=== PATIENT | male | born 1930 | race African-American/Black ===

== ENCOUNTER 2019-06-29 09:50 | Emergency (ER) | payer MEDICARE, OTHER ==
[2019-06-29] MEDS ORDERED: Sodium Chloride 0.9% 1,000 ML IV ONE (09:54)
[2019-06-29] MEDS ORDERED: Sodium Chloride 0.9% 2.5 ML Syringe FLUSH PRN (09:54)
[2019-06-29] MEDS ORDERED: Sodium Chloride 0.9% 10 ML Syringe FLUSH PRN (09:54)
--- NOTE | 2019-06-29 09:54 | EDM.PDOC ---
ED HPI GENERAL MEDICAL PROBLEM - General Chief Complaint: Neuro Symptoms/Deficits Stated Complaint: [facility] Time Seen by Provider: 06/29/19 09:50 Source of Information: Reports: Patient History Limitations: Reports: No Limitations - History of Present Illness INITIAL COMMENTS - FREE TEXT/NARRATIVE: History of present illness: []Patient awoke this morning with dizziness that is described as spinning. Review of systems: As per history of present illness and below otherwise all systems reviewed and negative. Past medical history: As per history of present illness and as reviewed below otherwise noncontributory. Surgical history: As per history of present illness and as reviewed below otherwise noncontributory. Social history: No reported history of drug or alcohol abuse. Family history: As per history of present illness and as reviewed below otherwise noncontributory. Physical exam: General: Well developed, well nourished in NAD HEENT: Atraumatic, normocephalic, pupils reactive, negative for conjunctival pallor or scleral icterus, mucous membranes moist, throat clear, neck supple, nontender, trachea midline. Lungs: Clear to auscultation, breath sounds equal bilaterally, chest nontender. Heart: S1S2, regular, negative for clicks, rubs, or JVD. Abdomen: NABS, Soft, nondistended, nontender. Negative for masses or hepatosplenomegaly. Negative for costovertebral tenderness. Pelvis: Stable nontender. Genitourinary: Deferred. Rectal: Deferred. Extremities: Atraumatic, negative for cords or calf pain. Neurovascular unremarkable. Neuro: Awake, alert, oriented. Cranial nerves II through XII unremarkable. Cerebellum unremarkable. Motor and sensory unremarkable throughout. Exam nonfocal. Skin:warm and dry Diagnostics: Bedside glucose EKG, CBC, chemistry, head CT Therapeutics: IV fluids ED Course: Stable Impression: dizziness-vertigo Prescriptions: meclizine Plan: go Home Definitive disposition and diagnosis as appropriate pending reevaluation and review of above. - Related Data Allergies Allergy/AdvReac Type Severity Reaction Status Date / Time No Known Allergies Allergy Verified 06/29/19 09:56 Home Meds: Home Meds Pantoprazole [ProTONIX] 40 mg PO DAILY 06/12/19 [History] Ramipril 10 mg PO DAILY 06/12/19 [History] amLODIPine [Norvasc] 10 mg PO DAILY 06/12/19 [History] glipiZIDE [Glucotrol XL] 5 mg PO DAILY 06/12/19 [History] Meclizine [Antivert] 25 mg PO TID #16 tab.chew 06/29/19 [Rx] Past Medical History HEENT History: Reports: None Cardiovascular History: Reports: Hypertension Endocrine/Metabolic History: Reports: Diabetes, Type II - Past Surgical History Cardiovascular Surgical History: Reports: None Social & Family History - Family History Family Medical History: Noncontributory - Caffeine Use Caffeine Use: Reports: None ED ROS GENERAL - Review of Systems Review Of Systems: See Below ED EXAM, DIZZINESS - Physical Exam Exam: See Below Course - Vital Signs Last Recorded V/S: Last Vital Signs Temp 97.1 F 06/29/19 09:54 Pulse 75 06/29/19 09:54 Resp 18 06/29/19 09:54 BP 182/83 H 06/29/19 09:54 Pulse Ox 97 06/29/19 09:54 - Orders/Labs/Meds Orders: Active Orders 24 hr Category Date Time Status Blood Glucose Check, Bedside [RC] ONETIME Care 06/29/19 10:11 Active EKG Documentation Completion [RC] STAT Care 06/29/19 10:10 Active Sodium Chloride 0.9% [Saline Flush] Med 06/29/19 09:54 Active 10 ml FLUSH ASDIRECTED PRN Sodium Chloride 0.9% [Saline Flush] Med 06/29/19 09:54 Active 2.5 ml FLUSH ASDIRECTED PRN Saline Lock Insert [OM.PC] Stat Oth 06/29/19 09:54 Ordered Medication Orders Sodium Chloride (Saline Flush) 10 ml FLUSH ASDIRECTED PRN PRN Reason: Keep Vein Open Sodium Chloride (Saline Flush) 2.5 ml FLUSH ASDIRECTED PRN PRN Reason: Keep Vein Open Labs: Laboratory Tests 06/29/19 06/29/19 06/29/19 Range/Units 10:05 10:05 10:13 WBC 6.79 (4.0-11.0) K/uL RBC 4.85 (4.50-5.90) M/uL Hgb 11.5 L (13.0-17.0) g/dL Hct 36.3 L (38.0-50.0) % MCV 74.8 L (80.0-98.0) fL MCH 23.7 L (27.0-32.0) pg MCHC 31.7 (31.0-37.0) g/dL RDW Std Deviation 36.7 (28.0-62.0) fl RDW Coeff of Nadia 14 (11.0-15.0) % Plt Count 297 (150-400) K/uL MPV 9.50 (7.40-12.00) fL Neut % (Auto) 69.7 (48.0-80.0) % Lymph % (Auto) 22.5 (16.0-40.0) % [place] % (Auto) 5.7 (0.0-15.0) % Eos % (Auto) 1.8 (0.0-7.0) % Baso % (Auto) 0.3 (0.0-1.5) % Neut # (Auto) 4.7 (1.4-5.7) K/uL Lymph # (Auto) 1.5 (0.6-2.4) K/uL [place] # (Auto) 0.4 (0.0-0.8) K/uL Eos # (Auto) 0.1 (0.0-0.7) K/uL Baso # (Auto) 0.0 (0.0-0.1) K/uL Nucleated RBC % 0.0 /100WBC Nucleated RBCs # 0 K/uL Sodium 138 (136-148) mmol/L Potassium 4.3 (3.5-5.1) mmol/L Chloride 101 (98-107) mmol/L Carbon Dioxide 25.7 (21.0-32.0) mmol/L BUN 18 (7.0-18.0) mg/dL Creatinine 1.7 H (0.8-1.3) mg/dL Est Cr Clr Drug Dosing 26.52 mL/min Estimated GFR (MDRD) 38.3 ml/min Glucose 209 H (74-106) mg/dL POC Glucose 225 H (60-110) mg/dL Calcium 9.3 (8.5-10.1) mg/dL Total Bilirubin 0.5 (0.2-1.0) mg/dL AST 11 L (15-37) IU/L ALT 17 (14-63) IU/L Alkaline Phosphatase 80 (46-116) U/L Total Protein 7.1 (6.4-8.2) g/dL Albumin 3.3 L (3.4-5.0) g/dL Globulin 3.8 (2.6-4.0) g/dL Albumin/Globulin Ratio 0.9 (0.9-1.6) Urine Color Urine Appearance Urine pH (5.0-8.0) Ur Specific [place]ansom (1.001-1.035) Urine Protein (NEGATIVE) mg/dL Urine Glucose (UA) (NEGATIVE) mg/dL Urine Ketones (NEGATIVE) mg/dL Urine Occult Blood (NEGATIVE) Urine Nitrite (NEGATIVE) Urine Bilirubin (NEGATIVE) Urine Urobilinogen (<2.0) EU/dL Ur Leukocyte Esterase (NEGATIVE) Urine RBC (0-2/HPF) Urine WBC (0-5/HPF) Ur Epithelial Cells (NONE-FEW) Urine Bacteria (NEGATIVE) 06/29/19 Range/Units 11:40 WBC (4.0-11.0) K/uL RBC (4.50-5.90) M/uL Hgb (13.0-17.0) g/dL Hct (38.0-50.0) % MCV (80.0-98.0) fL MCH (27.0-32.0) pg MCHC (31.0-37.0) g/dL RDW Std Deviation (28.0-62.0) fl RDW Coeff of Nadia (11.0-15.0) % Plt Count (150-400) K/uL MPV (7.40-12.00) fL Neut % (Auto) (48.0-80.0) % Lymph % (Auto) (16.0-40.0) % [place] % (Auto) (0.0-15.0) % Eos % (Auto) (0.0-7.0) % Baso % (Auto) (0.0-1.5) % Neut # (Auto) (1.4-5.7) K/uL Lymph # (Auto) (0.6-2.4) K/uL [place] # (Auto) (0.0-0.8) K/uL Eos # (Auto) (0.0-0.7) K/uL Baso # (Auto) (0.0-0.1) K/uL Nucleated RBC % /100WBC Nucleated RBCs # K/uL Sodium (136-148) mmol/L Potassium (3.5-5.1) mmol/L Chloride (98-107) mmol/L Carbon Dioxide (21.0-32.0) mmol/L BUN (7.0-18.0) mg/dL Creatinine (0.8-1.3) mg/dL Est Cr Clr Drug Dosing mL/min Estimated GFR (MDRD) ml/min Glucose (74-106) mg/dL POC Glucose (60-110) mg/dL Calcium (8.5-10.1) mg/dL Total Bilirubin (0.2-1.0) mg/dL AST (15-37) IU/L ALT (14-63) IU/L Alkaline Phosphatase (46-116) U/L Total Protein (6.4-8.2) g/dL Albumin (3.4-5.0) g/dL Globulin (2.6-4.0) g/dL Albumin/Globulin Ratio (0.9-1.6) Urine Color YELLOW Urine Appearance CLEAR Urine pH 6.0 (5.0-8.0) Ur Specific Ransom 1.015 (1.001-1.035) Urine Protein 100 H (NEGATIVE) mg/dL Urine Glucose (UA) 100 H (NEGATIVE) mg/dL Urine Ketones NEGATIVE (NEGATIVE) mg/dL Urine Occult Blood TRACE-INTACT H (NEGATIVE) Urine Nitrite NEGATIVE (NEGATIVE) Urine Bilirubin NEGATIVE (NEGATIVE) Urine Urobilinogen 0.2 (<2.0) EU/dL Ur Leukocyte Esterase NEGATIVE (NEGATIVE) Urine RBC 0-2 (0-2/HPF) Urine WBC 0-3 (0-5/HPF) Ur Epithelial Cells OCCASIONAL (NONE-FEW) Urine Bacteria RARE (NEGATIVE) Meds: Medications Generic Name Dose Route Start Last Admin Trade Name Freq PRN Reason Stop Dose Admin Sodium Chloride 10 ml 06/29/19 09:54 Saline Flush FLUSH ASDIRECTED PRN Keep Vein Open Sodium Chloride 2.5 ml 06/29/19 09:54 Saline Flush FLUSH ASDIRECTED PRN Keep Vein Open Discontinued Medications Generic Name Dose Route Start Last Admin Trade Name Freq PRN Reason Stop Dose Admin Sodium Chloride 1,000 mls @ 999 mls/hr 06/29/19 09:54 06/29/19 10:12 Normal Saline IV 06/29/19 10:54 999 mls/hr .Bolus ONE Administration Sodium Chloride 500 mls @ 999 mls/hr 06/29/19 10:08 06/29/19 10:17 Normal Saline IV 06/29/19 10:24 Not Given .Bolus ONE Departure - Departure Time of Disposition: 12:10 Disposition: Home, Self-Care 01 Condition: Good Clinical Impression: Vertigo - Discharge Information *PRESCRIPTION DRUG MONITORING PROGRAM REVIEWED*: No *COPY OF PRESCRIPTION DRUG MONITORING REPORT IN PATIENT [place]: No Referrals: PCP,Unobtain [Primary Care Provider] - Forms: ED Department Discharge Additional Instructions: The following information is given to patients seen in the emergency department who are being discharged to home. This information is to outline your options for follow-up care. We provide all patients seen in our emergency department with a follow-up referral. The need for follow-up, as well as the timing and circumstances, are variable depending upon the specifics of your emergency department visit. If you don't have a primary care physician on staff, we will provide you with a referral. We always advise you to contact your personal physician following an emergency department visit to inform them of the circumstance of the visit and for follow-up with them and/or the need for any referrals to a consulting specialist. The emergency department will also refer you to a specialist when appropriate. This referral assures that you have the opportunity for follow-up care with a specialist. All of these measure are taken in an effort to provide you with optimal care, which includes your follow-up. Under all circumstances we always encourage you to contact your private physician who remains a resource for coordinating your care. When calling for follow-up care, please make the office aware that this follow-up is from your recent emergency room visit. If for any reason you are refused follow-up, please contact the [facility] at and asked to speak to the emergency department charge nurse. Take meds as directed, follow up with your primary care physician, return to ER if symptoms worsen or change. [facility] [address] [place] [id number] - My Orders Last 24 Hours: My Active Orders 06/29/19 09:54 Sodium Chloride 0.9% [Saline Flush] 10 ml FLUSH ASDIRECTED PRN Sodium Chloride 0.9% [Saline Flush] 2.5 ml FLUSH ASDIRECTED PRN Saline Lock Insert [OM.PC] Stat 06/29/19 10:10 EKG Documentation Completion [RC] STAT 06/29/19 10:11 Blood Glucose Check, Bedside [] ONETIME - Assessment/Plan Last 24 Hours: My Active Orders 06/29/19 09:54 Sodium Chloride 0.9% [Saline Flush] 10 ml FLUSH ASDIRECTED PRN Sodium Chloride 0.9% [Saline Flush] 2.5 ml FLUSH ASDIRECTED PRN Saline Lock Insert [OM.PC] Stat 06/29/19 10:10 EKG Documentation Completion [RC] STAT 06/29/19 10:11 Blood Glucose Check, Bedside [RC] ONETIME
[2019-06-29] MEDS ORDERED: Sodium Chloride 0.9% 500 ML IV ONE (10:08)
[2019-06-29 10:43] LABS: CARBON DIOXIDE,CO2 25.7 mmol/L (21.0-32.0); POTASSIUM,K 4.3 mmol/L (3.5-5.1)
--- NOTE | 2019-06-29 10:48 | CT ---
INDICATION: Dizziness. COMPARISON: None. TECHNIQUE: Axial CT of the head without contrast. FINDINGS: [id number] generalized volume loss. Patchy low-attenuation change within the white matter consistent with chronic small vessel ischemic changes. 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 Compensatory mild dilatation of ventricular system. No midline shift. Normal calvarium and skull base. Visualized paranasal sinuses are unremarkable. Small left mastoid effusion. IMPRESSION: 1. No acute intracranial abnormality. 2. Mild to moderate generalized volume loss. 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 3. 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 Dictated by Kaushal Spicer MD @ Jun 29 2019 10:44AM Signed by Dr. Kaushal Spicer @ Jun 29 2019 10:46AM
== END 2019-06-29 12:30 | disposition home or self-care (01) ==
LOC: MW.ED 09:50
DX: R42 Dizziness and giddiness (principal); E11.9 Type 2 diabetes mellitus without complications; I10 Essential (primary) hypertension; Z79.899 Other long term (current) drug therapy
CPT/HCPCS: 36415; 70450; 80053; 81001; 82962; 85025; 93005; 99284; J7040

== ENCOUNTER 2020-08-03 15:37 | Emergency (ER) | payer MEDICARE, OTHER ==
--- NOTE | 2020-08-03 16:04 | EDM.PDOC ---
ED HPI GENERAL MEDICAL PROBLEM - General Chief Complaint: General Stated Complaint: WEAK NO APPETITE Time Seen by Provider: 08/03/20 15:38 - History of Present Illness INITIAL COMMENTS - FREE TEXT/NARRATIVE: This is a very nice 89-year-old male with a past medical history of diabetes mellitus, hypertension, and GERD presenting with generalized weakness. He apparently was brought to the respiratory clinic by his family to have COVID testing, which he refused. There, he told staff that he had been feeling weak and rundown for a while and clinic staff directed him to the emergency department for further evaluation. Here in the ED, the patient states that he has been feeling generally weak for about a week. He states that he recently traveled up here from [place] to stay with family members. His luggage was lost during the journey and all of his medications were lost including insulin and antihypertensive medications. He knows that he takes insulin but does not remember what his other medications are. Old pharmacy record shows that he was on oral medications for hypertension, diabetes mellitus, and GERD. His only complaint is feeling generally weak. He denies any recent illness, fever, chest discomfort, vom iting, diarrhea, or any pain. He denies any known sick contacts. He denies any other complaints besides feeling weak. ROS: A 10-point review of systems was negative, except as noted in the HPI (or in the ROS section of this note). Past medical history: Reviewed, no additional pertinent history. Surgical history: Reviewed in system, no additional pertinent history. Social history: Reviewed in system, no additional pertinent history. Family history: Reviewed in system, no additional pertinent history. PHYSICAL EXAM Vital signs reviewed. Nursing notes reviewed. Constitutional: Awake, alert, non-distressed. Head: Normocephalic, atraumatic. Eyes: EOMI, conjunctiva normal, no discharge, no scleral icterus. Ears, Nose, Throat: External ears and nose normal, moist oral mucosa. Cardiovascular: 2+ radial pulse, capillary refill less than 2 seconds. Pulmonary: normal work of breathing, no accessory muscle use. Abdomen/GI: Soft, nontender, nondistended, no guarding or rigidity, no masses. Musculoskeletal: No deformities. Integumentary: Appropriate color for ethnicity, warm, dry, no pallor or jaundice, no rash. Neurologic: Alert, answering questions appropriately, normal speech, no facial droop, moving all extremities well. Hard of hearing. Psychiatric: Appropriate mood and affect, normal thought process. - Related Data Allergies Allergy/AdvReac Type Severity Reaction Status Date / Time No Known Allergies Allergy Verified 08/03/20 15:50 Home Meds: Home Meds Pantoprazole [ProTONIX] 40 mg PO DAILY 06/12/19 [History] Ramipril 10 mg PO DAILY 06/12/19 [History] amLODIPine [Norvasc] 10 mg PO DAILY 06/12/19 [History] glipiZIDE [Glucotrol XL] 5 mg PO DAILY 06/12/19 [History] Meclizine [Antivert] 25 mg PO TID #16 tab.chew 06/29/19 [Rx] Past Medical History HEENT History: Reports: None Cardiovascular History: Reports: Hypertension Endocrine/Metabolic History: Reports: Diabetes, Type II - Past Surgical History Cardiovascular Surgical History: Reports: None Social & Family History - Family History Family Medical History: Noncontributory - Tobacco Use Tobacco Use Status *Q: Never Tobacco User - Caffeine Use Caffeine Use: Reports: None - Recreational Drug Use Recreational Drug Use: No ED ROS GENERAL - Review of Systems Review Of Systems: See Below ED EXAM, GENERAL - Physical Exam Exam: See Below #1 Interpretation EKG Interpretation Comments: 12-Lead ECG Interpretation Acquired: 3:55 PM Rhythm: Sinus rhythm Rate: 82 bpm [place]: Left axis deviation Intervals: Normal Ectopy: Lone PAC RV Strain: No obvious RV strain pattern. ST Segments/T-Waves: No notable changes Acute Ischemic Changes: Mild nondiagnostic ST segment depression in lead V6, less than 1 mm Interpretation: No STEMI Course - Vital Signs Text/Narrative:: Patient hemodynamically stable, afebrile, well-appearing, looks nontoxic. Differential diagnosis includes but is not limited to: Anemia, electrolyte dis turbance, volume depletion, UTI, pyelonephritis, bacteremia, sepsis, pneumonia, COVID-19, thyroid disease, medication side effect, and many others. Twelve-lead EKG shows no obvious ischemia. IV access established and labs sent. Noted be markedly hypertensive with Blood pressures as high as 260 systolic. Labs returned showing mild microcytic anemia. Normal coagulation markers. Creatinine elevated at 2.4, no prior available for comparison so I am not sure if this is acute or chronic. Glucose 449 with normal bicarbonate, so he is not in DKA. Troponin elevated at 0.096. LFTs are within normal limits. TSH is normal. Urinalysis shows small occult blood, greater than 1000 glucose. Negative serum ketones. Negative COVID swab. Chest x-rays are clear. Patient has hypertensive emergency, NSTEMI, and renal failure of uncertain chronicity. He was started on IV nitroglycerin infusion to lower his MAP by 20% and was also given a heparin bolus and infusion, full dose aspirin, and p.o. amlodipine. He will need to be admitted to an intensive care unit. We do not have interventional cardiology here for the troponin elevation. I attempted to secure an ICU bed in [place] or [place], but there are not available. We were able to get acceptance at [facility] in [place], [place]. He will be transferred there by fixed wing flight crew. Transferred to the flight crew in good condition. Last Recorded V/S: Last Vital Signs Temp 35.4 C L 08/03/20 15:47 Pulse 90 08/03/20 18:22 Resp 18 08/03/20 15:47 BP 148/88 H 08/03/20 18:22 Pulse Ox 97 08/03/20 18:22 - Orders/Labs/Meds Orders: Active Orders 24 hr Category Date Time Status CORONAVIRUS COVID-19 PCR PHL Stat Lab 08/03/20 16:35 Received Labs: Laboratory Tests 08/03/20 08/03/20 08/03/20 Range/Units 16:11 16:11 16:11 WBC 6.79 (4.0-11.0) K/uL RBC 5.08 (4.50-5.90) M/uL Hgb 12.2 L (13.0-17.0) g/dL Hct 38.0 (38.0-50.0) % MCV 74.8 L (80.0-98.0) fL MCH 24.0 L (27.0-32.0) pg MCHC 32.1 (31.0-37.0) g/dL RDW Std Deviation 36.1 (28.0-62.0) fl RDW Coeff of Nadia 13 (11.0-15.0) % Plt Count 297 (150-400) K/uL MPV 10.00 (7.40-12.00) fL Neut % (Auto) 60.9 (48.0-80.0) % Lymph % (Auto) 29.2 (16.0-40.0) % [place] % (Auto) 8.0 (0.0-15.0) % Eos % (Auto) 1.8 (0.0-7.0) % Baso % (Auto) 0.1 (0.0-1.5) % Neut # (Auto) 4.1 (1.4-5.7) K/uL Lymph # (Auto) 2.0 (0.6-2.4) K/uL [place] # (Auto) 0.5 (0.0-0.8) K/uL Eos # (Auto) 0.1 (0.0-0.7) K/uL Baso # (Auto) 0.0 (0.0-0.1) K/uL Nucleated RBC % 0.0 /100WBC Nucleated RBCs # 0 K/uL INR APTT (18.6-31.3) SEC VBG pH (7.31-7.41) VBG pCO2 (35-45) mmHG VBG pO2 (30-40) mmHG VBG HCO3 (22-30) mEq/L VBG Total CO2 (41-51) mmol/L VBG Base Excess (-3.0-3.0) Sodium 134 L (136-148) mmol/L Potassium 4.3 (3.5-5.1) mmol/L Chloride 98 (98-107) mmol/L Carbon Dioxide 28.8 (21.0-32.0) mmol/L BUN 31 H (7.0-18.0) mg/dL Creatinine 2.4 H (0.8-1.3) mg/dL Est Cr Clr Drug Dosing TNP Estimated GFR (MDRD) 31.0 ml/min Glucose 449 H (74-106) mg/dL Hemoglobin A1c 11.1 H (4.5-6.2) % Calcium 9.5 (8.5-10.1) mg/dL Total Bilirubin 0.8 (0.2-1.0) mg/dL AST 14 L (15-37) IU/L ALT 27 (14-63) IU/L Alkaline Phosphatase 89 (46-116) U/L Troponin I 0.096 H* (0.000-0.056) ng/mL Total Protein 7.4 (6.4-8.2) g/dL Albumin 3.8 (3.4-5.0) g/dL Globulin 3.6 (2.6-4.0) g/dL Albumin/Globulin Ratio 1.1 (0.9-1.6) TSH 3rd Generation 1.65 (0.36-3.74) uIU/mL Urine Color Urine Appearance Urine pH (5.0-8.0) Ur Specific [place] (1.001-1.035) Urine Protein (NEGATIVE) mg/dL Urine Glucose (UA) (NEGATIVE) mg/dL Urine Ketones (NEGATIVE) mg/dL Urine Occult Blood (NEGATIVE) Urine Nitrite (NEGATIVE) Urine Bilirubin (NEGATIVE) Urine Urobilinogen (<2.0) EU/dL Ur Leukocyte Esterase (NEGATIVE) Urine RBC (0-2/HPF) Urine WBC (0-5/HPF) Ur Epithelial Cells (NONE-FEW) Urine Bacteria (NEGATIVE) Ketones (NEG) SARS CoV-2 RNA Rapid TEA (NEGATIVE) 08/03/20 08/03/20 08/03/20 Range/Units 16:11 16:35 17:21 WBC (4.0-11.0) K/uL RBC (4.50-5.90) M/uL Hgb (13.0-17.0) g/dL Hct (38.0-50.0) % MCV (80.0-98.0) fL MCH (27.0-32.0) pg MCHC (31.0-37.0) g/dL RDW Std Deviation (28.0-62.0) fl RDW Coeff of Nadia (11.0-15.0) % Plt Count (150-400) K/uL MPV (7.40-12.00) fL Neut % (Auto) (48.0-80.0) % Lymph % (Auto) (16.0-40.0) % [place] % (Auto) (0.0-15.0) % Eos % (Auto) (0.0-7.0) % Baso % (Auto) (0.0-1.5) % Neut # (Auto) (1.4-5.7) K/uL Lymph # (Auto) (0.6-2.4) K/uL [place] # (Auto) (0.0-0.8) K/uL Eos # (Auto) (0.0-0.7) K/uL Baso # (Auto) (0.0-0.1) K/uL Nucleated RBC % /100WBC Nucleated RBCs # K/uL INR 0.99 APTT 23.6 (18.6-31.3) SEC VBG pH 7.32 (7.31-7.41) VBG pCO2 56 H (35-45) mmHG VBG pO2 23 L (30-40) mmHG VBG HCO3 29 (22-30) mEq/L VBG Total CO2 27 L (41-51) mmol/L VBG Base Excess 1.4 (-3.0-3.0) Sodium (136-148) mmol/L Potassium (3.5-5.1) mmol/L Chloride (98-107) mmol/L Carbon Dioxide (21.0-32.0) mmol/L BUN (7.0-18.0) mg/dL Creatinine (0.8-1.3) mg/dL Est Cr Clr Drug Dosing Estimated GFR (MDRD) ml/min Glucose (74-106) mg/dL Hemoglobin A1c (4.5-6.2) % Calcium (8.5-10.1) mg/dL Total Bilirubin (0.2-1.0) mg/dL AST (15-37) IU/L ALT (14-63) IU/L Alkaline Phosphatase (46-116) U/L Troponin I (0.000-0.056) ng/mL Total Protein (6.4-8.2) g/dL Albumin (3.4-5.0) g/dL Globulin (2.6-4.0) g/dL Albumin/Globulin Ratio (0.9-1.6) TSH 3rd Generation (0.36-3.74) uIU/mL Urine Color Urine Appearance Urine pH (5.0-8.0) Ur Specific [place] (1.001-1.035) Urine Protein (NEGATIVE) mg/dL Urine Glucose (UA) (NEGATIVE) mg/dL Urine Ketones (NEGATIVE) mg/dL Urine Occult Blood (NEGATIVE) Urine Nitrite (NEGATIVE) Urine Bilirubin (NEGATIVE) Urine Urobilinogen (<2.0) EU/dL Ur Leukocyte Esterase (NEGATIVE) Urine RBC (0-2/HPF) Urine WBC (0-5/HPF) Ur Epithelial Cells (NONE-FEW) Urine Bacteria (NEGATIVE) Ketones (NEG) SARS CoV-2 RNA Rapid TEA NEGATIVE (NEGATIVE) 08/03/20 08/03/20 Range/Units 17:21 17:36 WBC (4.0-11.0) K/uL RBC (4.50-5.90) M/uL Hgb (13.0-17.0) g/dL Hct (38.0-50.0) % MCV (80.0-98.0) fL MCH (27.0-32.0) pg MCHC (31.0-37.0) g/dL RDW Std Deviation (28.0-62.0) fl RDW Coeff of Nadia (11.0-15.0) % Plt Count (150-400) K/uL MPV (7.40-12.00) fL Neut % (Auto) (48.0-80.0) % Lymph % (Auto) (16.0-40.0) % [place] % (Auto) (0.0-15.0) % Eos % (Auto) (0.0-7.0) % Baso % (Auto) (0.0-1.5) % Neut # (Auto) (1.4-5.7) K/uL Lymph # (Auto) (0.6-2.4) K/uL [place] # (Auto) (0.0-0.8) K/uL Eos # (Auto) (0.0-0.7) K/uL Baso # (Auto) (0.0-0.1) K/uL Nucleated RBC % /100WBC Nucleated RBCs # K/uL INR APTT (18.6-31.3) SEC VBG pH (7.31-7.41) VBG pCO2 (35-45) mmHG VBG pO2 (30-40) mmHG VBG HCO3 (22-30) mEq/L VBG Total CO2 (41-51) mmol/L VBG Base Excess (-3.0-3.0) Sodium (136-148) mmol/L Potassium (3.5-5.1) mmol/L Chloride (98-107) mmol/L Carbon Dioxide (21.0-32.0) mmol/L BUN (7.0-18.0) mg/dL Creatinine (0.8-1.3) mg/dL Est Cr Clr Drug Dosing Estimated GFR (MDRD) ml/min Glucose (74-106) mg/dL Hemoglobin A1c (4.5-6.2) % Calcium (8.5-10.1) mg/dL Total Bilirubin (0.2-1.0) mg/dL AST (15-37) IU/L ALT (14-63) IU/L Alkaline Phosphatase (46-116) U/L Troponin I (0.000-0.056) ng/mL Total Protein (6.4-8.2) g/dL Albumin (3.4-5.0) g/dL Globulin (2.6-4.0) g/dL Albumin/Globulin Ratio (0.9-1.6) TSH 3rd Generation (0.36-3.74) uIU/mL Urine Color YELLOW Urine Appearance HAZY Urine pH 6.0 (5.0-8.0) Ur Specific [place] 1.020 (1.001-1.035) Urine Protein 100 H (NEGATIVE) mg/dL Urine Glucose (UA) >=1000 (NEGATIVE) mg/dL Urine Ketones NEGATIVE (NEGATIVE) mg/dL Urine Occult Blood SMALL H (NEGATIVE) Urine Nitrite NEGATIVE (NEGATIVE) Urine Bilirubin NEGATIVE (NEGATIVE) Urine Urobilinogen 0.2 (<2.0) EU/dL Ur Leukocyte Esterase NEGATIVE (NEGATIVE) Urine RBC 0-2 (0-2/HPF) Urine WBC 0-2 (0-5/HPF) Ur Epithelial Cells RARE (NONE-FEW) Urine Bacteria RARE (NEGATIVE) Ketones NEGATIVE (NEG) SARS CoV-2 RNA Rapid TEA (NEGATIVE) Meds: Medications Discontinued Medications Generic Name Dose Route Start Last Admin Trade Name Freq PRN Reason Stop Dose Admin Amlodipine Besylate 10 mg 08/03/20 16:17 08/03/20 16:39 Norvasc PO 08/03/20 16:18 10 mg ONETIME ONE Administration Aspirin 324 mg 08/03/20 16:51 08/03/20 17:30 Aspirin PO 08/03/20 16:52 324 mg ONETIME ONE Administration Heparin Sodium (Porcine) 3,540 units 08/03/20 17:30 08/03/20 17:51 Heparin Sodium IVPUSH 08/03/20 17:31 3,540 units .BOLUS ONE Administration Nitroglycerin/Dextrose 25 mg in 250 mls @ 45 mls/hr 08/03/20 17:15 08/03/20 18:15 Nitroglycerin 25 Mg/D5w 250 Ml IV 0 mcg/min TITRATE CL[place] 0 mls/hr Titration Protocol 75 MCG/MIN Heparin Sodium/Sodium Chloride 25,000 unit in 500 mls @ 14.16 mls/hr 08/03/20 17:30 08/03/20 17:49 Heparin-1/2ns 25,000 Units/500 IV 12 units/kg/hr TITRATE CL[place] 14.16 mls/hr Administration Protocol 12 UNITS/KG/HR Departure - Departure Time of Disposition: 18:04 Disposition: DC/Tfer to Acute Hospital 02 Condition: Good Clinical Impression: NSTEMI (non-ST elevated myocardial infarction), Hypertensive emergency, Renal insufficiency - Discharge Information Referrals: Sharri Eagle NP [Primary Care Provider] - Forms: ED Department Discharge Critical Care Note - Critical Care Note Total Time (mins): 30 Comments: Critical care time is exclusive of billable procedures and the time to perform these procedures. Critical care time was used to prevent vital system organ failure and deterioration. Critical care time includes bedside management and high-complexity decision making requiring my highest level of mental preparedness and attention. This includes reviewing the patient's chart and prior medical records, ordering and reviewing interpreting laboratory studies and imaging results, interpretation of vital signs and EKG, pulse oximetry, and discussion with the admitting team along with EMS and nursing staff. Hypertensive emergency, NSTEMI, renal insufficiency requiring nitroglycerin and heparin infusions, aspirin, close blood pressure control and haemodynamic monitoring, aeromedical transport to tertiary hospital for further intensive care. Sepsis Event Note (ED) - Evaluation Sepsis Screening Result: No Definite Risk - Focused Exam Vital Signs: Vital Signs Temp Pulse Resp BP BP Pulse Ox 08/03/20 18:22 90 148/88 H 97 08/03/20 18:16 105 H 133/75 97 08/03/20 18:12 100/52 L 08/03/20 17:56 87 183/92 H 96 08/03/20 17:41 89 240/112 H 95 08/03/20 17:35 80 257/112 H 95 08/03/20 16:39 203/111 H 08/03/20 15:47 35.4 C L 76 18 217/108 H 97 - My Orders Last 24 Hours: My Active Orders 08/03/20 16:35 CORONAVIRUS COVID-19 PCR PHL Stat - Assessment/Plan Last 24 Hours: My Active Orders 08/03/20 16:35 CORONAVIRUS COVID-19 PCR PHL Stat
[2020-08-03] MEDS ORDERED: amLODIPine 5 MG Tab PO ONE (16:17)
[2020-08-03 16:43] LABS: BLOOD UREA NITROGEN,BUN 31 mg/dL (7.0-18.0); CARBON DIOXIDE,CO2 28.8 mmol/L (21.0-32.0); CHLORIDE,CL 98 mmol/L (98-107); GLUCOSE RANDOM 449 mg/dL (74-106); POTASSIUM,K 4.3 mmol/L (3.5-5.1); SODIUM,NA 134 mmol/L (136-148)
[2020-08-03] MEDS ORDERED: Aspirin 81 MG Tab.Chew PO ONE (16:51)
[2020-08-03 17:10] LABS: HEMOGLOBIN A1C 11.1 % (4.5-6.2)
[2020-08-03] MEDS ORDERED: Nitroglycerin/D5W 25 MG/250 ML BOTTLE IV SCH (17:15)
[2020-08-03] MEDS ORDERED: Heparin Sod,Pork In 0.45% Nacl 25,000 UNIT/500 ML IV.SOLN IV SCH (17:30)
[2020-08-03] MEDS ORDERED: Heparin Sodium 5,000 Units/ML Vial IVPUSH ONE (17:30)
--- NOTE | 2020-08-03 17:50 | CR ---
INDICATION: Generalized weakness. TECHNIQUE: PA and lateral. COMPARISON: 06/12/2019. FINDINGS: No infiltrate or pleural effusion. Small nodular density projected over the medial left base, presumably unchanged. Heart size and pulmonary vasculature within normal limits. No significant bony abnormality. IMPRESSION: No active disease. Dictated by Justin Alvarez MD @ Aug 03 2020 5:44PM Signed by Dr. Justin Alvarez @ Aug 03 2020 5:48PM
== END 2020-08-03 18:30 ==
LOC: MW.ED 15:37
DX: I21.4 Non-ST elevation (NSTEMI) myocardial infarction (principal); I16.1 Hypertensive emergency; N28.9 Disorder of kidney and ureter, unspecified; I10 Essential (primary) hypertension; E11.9 Type 2 diabetes mellitus without complications; Z20.828 Contact with and (suspected) exposure to other viral communicable diseases; Z79.899 Other long term (current) drug therapy
CPT/HCPCS: 36415; 71046; 80053; 81001; 82009; 82803; 83036; 84443; 84484; 85025; 85610; 85730; 93005; 96365; 96368; 99285; A9270; J1644; J3490; U0002; 99291

== ENCOUNTER 2020-09-27 14:13 | Emergency (ER) | payer MEDICARE ==
[2020-09-27] MEDS ORDERED: Sodium Chloride 0.9% 10 ML Syringe FLUSH PRN (14:15)
[2020-09-27] MEDS ORDERED: Sodium Chloride 0.9% 2.5 ML Syringe FLUSH PRN (14:15)
[2020-09-27] MEDS ORDERED: Ondansetron 4 MG/2 ML SDV ONE ×2 (14:40→17:40)
--- NOTE | 2020-09-27 14:41 | EDM.PDOC ---
<Junito Thomas - Last Filed: 09/27/20 17:15> ED HPI GENERAL MEDICAL PROBLEM - General Chief Complaint: Neuro Symptoms/Deficits Stated Complaint: EMS ARRIVAL Time Seen by Provider: 09/27/20 14:14 Source of Information: Reports: Patient History Limitations: Reports: No Limitations - History of Present Illness INITIAL COMMENTS - FREE TEXT/NARRATIVE: 89-year-old male with history of vertigo, hypertensive emergency, HTN, DM, NSTEMI was brought in by ambulance after the patient's called for him vomiting today. When EMS arrived he was diaphoretic and altered. Blood glucose = 79. Systolic blood pressure = 208. Patient was given 4 mg IM Zofran. He denies headache, chest pain, abdominal pain, shortness of breath, diarrhea. He currently admits to feeling dizzy, like the room is spinning. ROS: A 10-point review of systems, other than pertinent positives and negatives as stated per HPI, is otherwise negative Past medical history: No additional pertinent history Past Surgical history: No additional pertinent history Social history: No additional pertinent history Family history: No additional pertinent history PHYSICAL EXAM General: AOx3, GCS = 14, ill appearing, moderate distress, somnulent, drooling into his vomit bag HEENT: dry mucous membrane, drooling from the mouth Neck: supple, no meningismus, no Kernig or Brudzinski Cardiac: S1S2 RRR Respiratory: CTAB, no crackles or rales, no wheezing Abdomen: Soft, nontender, no rebound or guarding, nondistended, no pulsatile mass. Back: nontender Musculoskeletal: NVI distally, no deformity Neuro: No focal deficits - Related Data Allergies Allergy/AdvReac Type Severity Reaction Status Date / Time No Known Allergies Allergy Verified 09/27/20 14:24 Home Meds: Home Meds Pantoprazole [ProTONIX] 40 mg PO DAILY 06/12/19 [History] Ramipril 10 mg PO DAILY 06/12/19 [History] amLODIPine [Norvasc] 10 mg PO DAILY 06/12/19 [History] glipiZIDE [Glucotrol XL] 5 mg PO DAILY 06/12/19 [History] Meclizine [Antivert] 25 mg PO TID #16 tab.chew 06/29/19 [Rx] Past Medical History HEENT History: Reports: None Cardiovascular History: Reports: Hypertension Endocrine/Metabolic History: Reports: Diabetes, Type II Hematologic History: Reports: Anemia - Past Surgical History Cardiovascular Surgical History: Reports: None Social & Family History - Family History Family Medical History: No Pertinent Family History - Caffeine Use Caffeine Use: Reports: None ED ROS GENERAL - Review of Systems Review Of Systems: See Below (see dictation) ED EXAM, GENERAL - Physical Exam Exam: See Below (see dictation) #1 Interpretation EKG Interpretation Comments: Heart rate = 71 bpm, normal sinus rhythm, normal QRS interval, no STEMI. EKG and rhythm strip interpreted by me at 1410 Course - Re-Assessments/Exams Free Text/Narrative Re-Assessment/Exam: 09/27/20 15:48 Patient still feels dizzy as if the room is spinning, will give 2 mg IV Valium. 09/27/20 15:57 Patient is resting calmly, his blood pressure = 182/100, HR = 62, will give 10 mg IV hydralazine. 09/27/20 17:32 Patient will require transfer to outside facility for the need of higher level of care not available at this facility, and the need for hadoop consultant services unavailable at this facility. Any emergency conditions have been stabilized to the ability of the ED prior to the transfer. J[facility] Bour[facility]. Case was discussed and accepted by Deshaun Young at [place], will accept transfer to [facility]. MEDICAL DECISION MAKING: I reviewed the patients past medical records, lab and radiographic findings. I discussed the case with the patient. My differential diagnosis included: Peripheral vertigo, central vertigo, vertebrobasilar insufficiency, posterior stroke. Patient presented hypertensive and was given 10 mg IV load hydralazine. He has a history of hypertensive emergency. Today his creatinine = 1.8, which is improved from his previous creatinine of 2.4 on 08/03/2020. CT angio was deferred given CKD. Patient was given IV Valium with no improvement in his dizziness sensation, he will need further assessment for his persistent dizziness. Departure - Departure Time of Disposition: 17:35 Disposition: DC/Tfer to Acute Hospital 02 Condition: Good Clinical Impression: Chronic kidney disease, Dizziness, Vertigo, Hypertension - Discharge Information *PRESCRIPTION DRUG MONITORING PROGRAM REVIEWED*: Not Applicable *COPY OF PRESCRIPTION DRUG MONITORING REPORT IN PATIENT [place]: Not Applicable Referrals: PCP,None [Primary Care Provider] - Forms: ED Department Discharge Sepsis Event Note (ED) - Evaluation Sepsis Screening Result: No Definite Risk <Kulwinder Vega - Last Filed: 09/27/20 20:17> Course - Vital Signs Last Recorded V/S: Last Vital Signs Temp 35.6 C L 09/27/20 14:20 Pulse 62 09/27/20 18:47 Resp 17 09/27/20 18:47 BP 179/79 H 09/27/20 18:47 Pulse Ox 97 09/27/20 18:47 - Orders/Labs/Meds Orders: Active Orders 24 hr Category Date Time Status EKG Documentation Completion [RC] STAT Care 09/27/20 14:18 Active Sodium Chloride 0.9% [Saline Flush] Med 09/27/20 14:15 Active 10 ml FLUSH ASDIRECTED PRN Sodium Chloride 0.9% [Saline Flush] Med 09/27/20 14:15 Active 2.5 ml FLUSH ASDIRECTED PRN Saline Lock Insert [OM.PC] Stat Oth 09/27/20 14:15 Ordered Medication Orders Sodium Chloride (Saline Flush) 10 ml FLUSH ASDIRECTED PRN PRN Reason: Keep Vein Open Last Admin: 09/27/20 14:38 Dose: 10 ml Documented by: KATHY Sodium Chloride (Saline Flush) 2.5 ml FLUSH ASDIRECTED PRN PRN Reason: Keep Vein Open Last Admin: 09/27/20 14:37 Dose: 2.5 ml Documented by: KATHY Labs: Laboratory Tests 09/27/20 09/27/20 09/27/20 Range/Units 14:17 14:17 14:17 WBC 14.60 H (4.0-11.0) K/uL RBC 4.97 (4.50-5.90) M/uL Hgb 12.5 L (13.0-17.0) g/dL Hct 38.9 (38.0-50.0) % MCV 78.3 L (80.0-98.0) fL MCH 25.2 L (27.0-32.0) pg MCHC 32.1 (31.0-37.0) g/dL RDW Std Deviation 39.8 (28.0-62.0) fl RDW Coeff of Nadia 14 (11.0-15.0) % Plt Count 279 (150-400) K/uL MPV 10.20 (7.40-12.00) fL Neut % (Auto) 62.6 (48.0-80.0) % Lymph % (Auto) 30.0 (16.0-40.0) % Bee % (Auto) 6.2 (0.0-15.0) % Eos % (Auto) 1.0 (0.0-7.0) % Baso % (Auto) 0.2 (0.0-1.5) % Neut # (Auto) 9.1 H (1.4-5.7) K/uL Lymph # (Auto) 4.4 H (0.6-2.4) K/uL Bee # (Auto) 0.9 H (0.0-0.8) K/uL Eos # (Auto) 0.2 (0.0-0.7) K/uL Baso # (Auto) 0.0 (0.0-0.1) K/uL Nucleated RBC % 0.0 /100WBC Nucleated RBCs # 0 K/uL INR 1.00 Sodium 145 (136-148) mmol/L Potassium 3.3 L (3.5-5.1) mmol/L Chloride 105 (98-107) mmol/L Carbon Dioxide 26.5 (21.0-32.0) mmol/L BUN 13 (7.0-18.0) mg/dL Creatinine 1.8 H (0.8-1.3) mg/dL Est Cr Clr Drug Dosing 23.22 mL/min Estimated GFR (MDRD) 43.3 ml/min Glucose 95 (74-106) mg/dL POC Glucose (60-110) mg/dL Calcium 10.0 (8.5-10.1) mg/dL Phosphorus 3.6 (2.6-4.7) mg/dL Magnesium 1.9 (1.8-2.4) mg/dL Total Bilirubin 1.5 H (0.2-1.0) mg/dL AST 15 (15-37) IU/L ALT 21 (14-63) IU/L Alkaline Phosphatase 75 (46-116) U/L Troponin I < 0.050 (0.000-0.056) ng/mL Total Protein 8.2 (6.4-8.2) g/dL Albumin 4.2 (3.4-5.0) g/dL Globulin 4.0 (2.6-4.0) g/dL Albumin/Globulin Ratio 1.0 (0.9-1.6) Urine Color Urine Appearance Urine pH (5.0-8.0) Ur Specific [place] (1.001-1.035) Urine Protein (NEGATIVE) mg/dL Urine Glucose (UA) (NEGATIVE) mg/dL Urine Ketones (NEGATIVE) mg/dL Urine Occult Blood (NEGATIVE) Urine Nitrite (NEGATIVE) Urine Bilirubin (NEGATIVE) Urine Urobilinogen (<2.0) EU/dL Ur Leukocyte Esterase (NEGATIVE) Urine RBC (0-2/HPF) Urine WBC (0-5/HPF) Ur Epithelial Cells (NONE-FEW) Urine Bacteria (NEGATIVE) Urine Mucus (NONE-MOD) SARS-CoV-2 RNA (TEA) (NEGATIVE) 09/27/20 09/27/20 09/27/20 Range/Units 14:19 14:26 14:52 WBC (4.0-11.0) K/uL RBC (4.50-5.90) M/uL Hgb (13.0-17.0) g/dL Hct (38.0-50.0) % MCV (80.0-98.0) fL MCH (27.0-32.0) pg MCHC (31.0-37.0) g/dL RDW Std Deviation (28.0-62.0) fl RDW Coeff of Nadia (11.0-15.0) % Plt Count (150-400) K/uL MPV (7.40-12.00) fL Neut % (Auto) (48.0-80.0) % Lymph % (Auto) (16.0-40.0) % Bee % (Auto) (0.0-15.0) % Eos % (Auto) (0.0-7.0) % Baso % (Auto) (0.0-1.5) % Neut # (Auto) (1.4-5.7) K/uL Lymph # (Auto) (0.6-2.4) K/uL Bee # (Auto) (0.0-0.8) K/uL Eos # (Auto) (0.0-0.7) K/uL Baso # (Auto) (0.0-0.1) K/uL Nucleated RBC % /100WBC Nucleated RBCs # K/uL INR Sodium (136-148) mmol/L Potassium (3.5-5.1) mmol/L Chloride (98-107) mmol/L Carbon Dioxide (21.0-32.0) mmol/L BUN (7.0-18.0) mg/dL Creatinine (0.8-1.3) mg/dL Est Cr Clr Drug Dosing mL/min Estimated GFR (MDRD) ml/min Glucose (74-106) mg/dL POC Glucose 86 (60-110) mg/dL Calcium (8.5-10.1) mg/dL Phosphorus (2.6-4.7) mg/dL Magnesium (1.8-2.4) mg/dL Total Bilirubin (0.2-1.0) mg/dL AST (15-37) IU/L ALT (14-63) IU/L Alkaline Phosphatase (46-116) U/L Troponin I (0.000-0.056) ng/mL Total Protein (6.4-8.2) g/dL Albumin (3.4-5.0) g/dL Globulin (2.6-4.0) g/dL Albumin/Globulin Ratio (0.9-1.6) Urine Color YELLOW Urine Appearance CLEAR Urine pH 7.0 (5.0-8.0) Ur Specific [place] 1.025 (1.001-1.035) Urine Protein 100 H (NEGATIVE) mg/dL Urine Glucose (UA) NEGATIVE (NEGATIVE) mg/dL Urine Ketones NEGATIVE (NEGATIVE) mg/dL Urine Occult Blood TRACE-INTACT H (NEGATIVE) Urine Nitrite NEGATIVE (NEGATIVE) Urine Bilirubin NEGATIVE (NEGATIVE) Urine Urobilinogen 0.2 (<2.0) EU/dL Ur Leukocyte Esterase TRACE H (NEGATIVE) Urine RBC 1-2 (0-2/HPF) Urine WBC 1-2 (0-5/HPF) Ur Epithelial Cells RARE (NONE-FEW) Urine Bacteria RARE (NEGATIVE) Urine Mucus FEW (NONE-MOD) SARS-CoV-2 RNA (TEA) NEGATIVE (NEGATIVE) Meds: Medications Generic Name Dose Route Start Last Admin Trade Name Cainq PRN Reason Stop Dose Admin Sodium Chloride 10 ml 09/27/20 14:15 09/27/20 14:38 Saline Flush FLUSH 10 ml ASDIRECTED PRN Administration Keep Vein Open Sodium Chloride 2.5 ml 09/27/20 14:15 09/27/20 14:37 Saline Flush FLUSH 2.5 ml ASDIRECTED PRN Administration Keep Vein Open Discontinued Medications Generic Name Dose Route Start Last Admin Trade Name Freq PRN Reason Stop Dose Admin Diazepam 2 mg 09/27/20 14:55 09/27/20 15:49 Valium IVPUSH 09/27/20 14:56 2 mg ONETIME ONE Administration Hydralazine HCl 10 mg 09/27/20 15:56 09/27/20 16:07 Apresoline IVPUSH 09/27/20 15:57 10 mg ONETIME ONE Administration Lactated Ringer's 1,000 mls @ 999 mls/hr 09/27/20 14:47 09/27/20 15:35 Ringers, Lactated IV 09/27/20 15:47 999 mls/hr .BOLUS ONE Administration Meclizine HCl 25 mg 09/27/20 17:39 09/27/20 18:02 Antivert PO 09/27/20 17:40 25 mg ONETIME ONE Administration Meclizine HCl Confirm 09/27/20 17:40 09/27/20 18:03 Antivert Administered 09/27/20 17:41 Not Given Dose 25 mg .ROUTE .STK-MED ONE Ondansetron HCl Confirm 09/27/20 14:40 09/27/20 14:44 Zofran Administered 09/27/20 14:41 Not Given Dose 4 mg .ROUTE .STK-MED ONE Ondansetron HCl 4 mg 09/27/20 14:43 09/27/20 14:43 Zofran IVPUSH 09/27/20 14:44 4 mg ONETIME ONE Administration Ondansetron HCl 4 mg 09/27/20 17:39 12/07/20 18:01 Zofran IVPUSH 09/27/20 17:40 4 mg ONETIME ONE Administration Ondansetron HCl Confirm 09/27/20 17:40 09/27/20 18:03 Zofran Administered 09/27/20 17:41 Not Given Dose 4 mg .ROUTE .STK-MED ONE Sepsis Event Note (ED) - Focused Exam Vital Signs: Vital Signs Temp Pulse Resp BP Pulse Ox 09/27/20 18:47 62 17 179/79 H 97 09/27/20 18:37 66 17 167/78 H 97 09/27/20 18:21 65 17 162/74 H 97 09/27/20 18:06 70 17 167/80 H 97 09/27/20 17:51 76 17 167/89 H 97 09/27/20 17:21 70 17 174/83 H 97 09/27/20 17:06 74 17 190/88 H 97 09/27/20 16:51 72 17 175/84 H 97 09/27/20 16:21 74 17 184/86 H 98 09/27/20 16:06 67 17 179/86 H 96 09/27/20 15:57 71 202/81 H 96 09/27/20 14:53 62 173/72 H 09/27/20 14:45 71 177/80 H 97 09/27/20 14:26 82 196/98 H 94 L 09/27/20 14:20 35.6 C L 77 18 175/95 H 99 09/27/20 14:13 83 179/95 H 95
[2020-09-27] MEDS ORDERED: Ondansetron 4 MG/2 ML SDV IVPUSH ONE ×2 (14:43→17:39)
[2020-09-27] MEDS ORDERED: Lactated Ringers 1,000 ML IV ONE (14:47)
[2020-09-27 15:01] LABS: BLOOD UREA NITROGEN,BUN 13 mg/dL (7.0-18.0); CARBON DIOXIDE,CO2 26.5 mmol/L (21.0-32.0); CHLORIDE,CL 105 mmol/L (98-107); GLUCOSE RANDOM 95 mg/dL (74-106); POTASSIUM,K 3.3 mmol/L (3.5-5.1); SODIUM,NA 145 mmol/L (136-148)
--- NOTE | 2020-09-27 15:32 | CT ---
Indication: Altered mental status Technique: Volumetric multidetector CT images of the head were obtained without the administration of low osmolar intravenous contrast. Comparison: None available Findings: There is no intra-axial or extra-axial fluid collection. There is no mass effect or midline shift. There is age-related cortical atrophy with moderate sulcal widening and ex vacuo dilatation of the lateral ventricles. 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 There are chronic small vessel disease changes in the subcortical and periventricular white matter without lost davies-white differentiation. The orbits and their contents are grossly within normal limits. The bony calvarium is grossly intact. There is minimal mucosal thickening within the paranasal sinuses. There is trace fluid within the left greater than right mastoid air cells. Impression: 1. Age-related changes of the brain without acute intracranial abnormality. Please note that all CT scans at this facility use dose modulation, iterative reconstruction, and/or weight-based dosing when appropriate to reduce radiation dose to as low as reasonably achievable. Dictated by Alen Og MD @ Sep 27 2020 3:24PM Signed by Dr. Alen Og @ Sep 27 2020 3:30PM
[2020-09-27] MEDS ORDERED: hydrALAZINE 20 MG/ML SDV IVPUSH ONE (15:56)
[2020-09-27] MEDS ORDERED: Meclizine 25 MG Tab PO ONE (17:39)
[2020-09-27] MEDS ORDERED: Meclizine 25 MG Tab ONE (17:40)
--- NOTE | 2020-09-27 18:27 | CR ---
Indication: Dizziness Comparison: Two-view chest August 03, 2020 Technique: Single AP view chest Findings: There is again seen hyperinflation and chronic interstitial change with elevation of the left hemidiaphragm. There is basilar atelectasis versus parenchymal scar. There is no pneumothorax. The cardiac silhouette is stable with a tortuous thoracic aorta. The bony thorax is grossly intact. Impression: Demonstration of elevated left hemidiaphragm with basilar atelectasis versus scar. Dictated by Alen Og MD @ Sep 27 2020 6:24PM Signed by Dr. Alen Og @ Sep 27 2020 6:25PM
== END 2020-09-27 20:20 ==
LOC: MW.ED 14:13
DX: I12.9 Hypertensive chronic kidney disease with stage 1 through stage 4 chronic kidney disease, or unspecified chronic kidney disease (principal); N18.9 Chronic kidney disease, unspecified; E11.22 Type 2 diabetes mellitus with diabetic chronic kidney disease; I25.2 Old myocardial infarction; Z79.84 Long term (current) use of oral hypoglycemic drugs; Z79.899 Other long term (current) drug therapy; Z20.828 Contact with and (suspected) exposure to other viral communicable diseases
CPT/HCPCS: 36415; 70450; 71045; 80053; 81001; 82962; 83735; 84100; 84484; 85025; 85610; 93005; 96374; 96375; 96376; 99285; A9270; J0360; J2405; J3360; J7120; U0002

== ENCOUNTER 2020-12-08 04:10 | Emergency (ER) | payer MEDICARE ==
[2020-12-08] MEDS ORDERED: Sodium Chloride 0.9% 2.5 ML Syringe FLUSH PRN (04:19)
[2020-12-08] MEDS ORDERED: Sodium Chloride 0.9% 1,000 ML IV ONE (04:19)
[2020-12-08] MEDS ORDERED: Sodium Chloride 0.9% 10 ML Syringe FLUSH PRN (04:19)
[2020-12-08 04:51] LABS: BLOOD UREA NITROGEN,BUN 17 mg/dL (7.0-18.0); CARBON DIOXIDE,CO2 24.8 mmol/L (21.0-32.0); CHLORIDE,CL 103 mmol/L (98-107); GLUCOSE RANDOM 340 mg/dL (74-106); POTASSIUM,K 4.1 mmol/L (3.5-5.1); SODIUM,NA 139 mmol/L (136-148)
--- NOTE | 2020-12-08 04:58 | CR ---
Indication: Weakness Technique: Chest 1 view Comparison: None Findings/Impression: Cardiovascular and mediastinum: Normal heart size with mild aortic tortuosity and atherosclerotic calcification. Lungs and pleural space: Lungs are clear. No sign of infiltrate or mass. No sign of pleural effusion. No pneumothorax. Bones and soft tissues: No acute findings. Dictated by Rusty Forman MD @ Dec 08 2020 4:54AM Signed by Dr. Rusty Forman @ Dec 08 2020 4:56AM
[2020-12-08] MEDS ORDERED: Insulin Regular, Human 100 Units/ML 10 ML Vial IVPUSH ONE (05:05)
[2020-12-08] MEDS ORDERED: Glucagon,Human Recombinant 1 MG Vial IM PRN (05:05)
[2020-12-08] MEDS ORDERED: 50% Dextrose in Water 50 ML Syringe IV PRN (05:05)
[2020-12-08] MEDS ORDERED: cloNIDine 0.1 MG Tab PO ONE (05:09)
--- NOTE | 2020-12-08 06:07 | CT ---
INDICATION: Weakness TECHNIQUE: Head CT without contrast. COMPARISON: September 27, 2020 FINDINGS: CSF spaces: Within normal limits for age. Brain parenchyma and extra-axial spaces: There are nonspecific low attenuation white matter changes consistent with chronic microvascular disease. No sign of mass, hemorrhage, or midline shift. Skull base and calvarium: The visualized paranasal sinuses and mastoid air cells demonstrate no acute or significant findings. The visualized orbits are grossly unremarkable. No skull fractures. IMPRESSION: No acute or significant findings.No change from the prior exam. Please note that all CT scans at this facility use dose modulation, iterative reconstruction, and/or weight-based dosing when appropriate to reduce radiation dose to as low as reasonably achievable. Dictated by Freddy Hickey MD @ Dec 08 2020 6:04AM Signed by Dr. Freddy Hickey @ Dec 08 2020 6:07AM
--- NOTE | 2020-12-08 06:36 | EDM.PDOC ---
ED HPI GENERAL MEDICAL PROBLEM - General Chief Complaint: General Stated Complaint: WEAKNESS Time Seen by Provider: 12/08/20 04:51 - History of Present Illness INITIAL COMMENTS - FREE TEXT/NARRATIVE: HISTORY AND PHYSICAL: History of present illness: This is an 89-year-old gentleman with history significant for diabetes, hypertension, GERD, who presents ER today secondary to generalized weakness and polyuria. Patient reports no other complaints at this time. Patient reports no recent fevers, shakes, chills, nausea, vomiting, diarrhea, dysuria. Patient reports that he has been urinating frequently. Patient denies any cough or congestion. Patient denies any URI symptoms. Patient denies any abdominal pain or chest pain. Patient reports he has been eating and drinking well. Patient denies any recent changes to his medications. Patient denies any headaches. Patient reports he feels weak all over and tired. Review of systems: As per history of present illness and below otherwise all systems reviewed and negative. Past medical history: As per history of present illness and as reviewed below otherwise noncontributory. Surgical history: As per history of present illness and as reviewed below otherwise no ncontributory. Social history: No reported history of drug or alcohol abuse. Family history: As per history of present illness and as reviewed below otherwise noncontributory. Physical exam: Constitutional: Patient is oriented to person, place, and time. Appears well- developed and well-nourished. No distress. HEENT: Moist mucous membranes Head: Normocephalic and atraumatic, hard of hearing Eyes: Right eye exhibits no discharge. Left eye exhibits no discharge. No scleral icterus Neck: Normal range of motion. No tracheal deviation present. Cardiovascular: Normal rate and regular rhythm. Pulmonary: Effort normal, no respiratory distress. Abdominal: No distention Musculoskeletal: Normal range of motion Neurologic: Alert and oriented to person, place and time. Skin: [place], warm and dry. Psychiatric: Normal mood and affect. Behavior is normal. Judgment and thought content normal. Nursing note and vital signs have been reviewed This patient was seen and evaluated during the 2019 SARS-CoV-2 novel coronavirus pandemic period. Community viral transmission is ongoing at time of this encounter and the emergency department is operating under pandemic response procedures. Diagnostics: CBC, CMP, chest x-ray, head CT Therapeutics: Clonidine 0.2 mg p.o. Insulin 5 units IV NSS x1 L Assessment and plan: This is an 89-year-old gentleman with history of hypertension and diabetes who presents ER today secondary to generalized weakness. Patient's labs are significant for hyperglycemia. Patient's vital signs are significant for markedly elevated blood pressure upon arrival to the ED. In the ER, the patient was given clonidine 0.2 mg to assist with his hypertension. Patient was given 1 L of NSS to assist with his hyperglycemia as well as 5 units of IV insulin. Patient was monitored in the ER after the IV fluids he reports that he does feel improved. Patient is repeat blood pressure and blood sugars have markedly improved and are down to normal. Patient had a CT scan of his head which did not reveal any acute pathology. At this time, I am unable to identify any acute process that would require further inpatient evaluation. I feel that the patient will be stable and safe to go home and continue outpatient evaluation and monitoring of his blood pressure and blood sugar by his primary care physician. Reassessment at the time of disposition demonstrates that the patient is in no acute distress. The patient has remained stable throughout the entire ED visit and is without objective evidence for acute process requiring urgent intervention or hospitalization. The patient is stable for discharge, counseling is provided as documented above, discussed symptomatic treatment and specific conditions for return. I have spoken with the patient/caregiver and discussed todays findings, in addition to providing specific details for the plan of care. Questions are answered and there is agreement with the plan. Definitive disposition and diagnosis as appropriate pending reevaluation and review of above. - Related Data Allergies Allergy/AdvReac Type Severity Reaction Status Date / Time No Known Allergies Allergy Verified 12/08/20 04:16 Home Meds: Home Meds . [No Known Home Meds] 12/08/20 [History] Past Medical History HEENT History: Reports: None Cardiovascular History: Reports: Hypertension Endocrine/Metabolic History: Reports: Diabetes, Type II Hematologic History: Reports: Anemia - Infectious Disease History Infectious Disease History: Reports: None - Past Surgical History Cardiovascular Surgical History: Reports: None Social & Family History - Family History Family Medical History: No Pertinent Family History - Tobacco Use Tobacco Use Status *Q: Never Tobacco User - Caffeine Use Caffeine Use: Reports: None - Recreational Drug Use Recreational Drug Use: No ED ROS GENERAL - Review of Systems Review Of Systems: See Below ED EXAM, GENERAL - Physical Exam Exam: See Below #1 Interpretation EKG Interpretation Comments: EKG: As interpreted by ER physician: [place]: Nonspecific ST-T wave abnormalities Normal axis No evidence of ST elevation MA Normal sinus rhythm heart rate of 100 Course - Vital Signs Last Recorded V/S: Last Vital Signs Temp 97.8 F 12/08/20 04:16 Pulse 86 12/08/20 06:12 Resp 14 12/08/20 06:12 BP 129/91 H 12/08/20 06:12 Pulse Ox 100 12/08/20 06:12 - Orders/Labs/Meds Orders: Active Orders 24 hr Category Date Time Status EKG Documentation Completion [RC] AM Care 12/08/20 04:19 Active Dextrose 50% in Water Med 12/08/20 05:05 Active 50 ml IV ASDIRECTED PRN Glucagon,Human Recombinant [GlucaGen] Med 12/08/20 05:05 Active 1 mg IM ASDIRECTED PRN Sodium Chloride 0.9% [Saline Flush] Med 12/08/20 04:19 Active 10 ml FLUSH ASDIRECTED PRN Sodium Chloride 0.9% [Saline Flush] Med 12/08/20 04:19 Active 2.5 ml FLUSH ASDIRECTED PRN Saline Lock Insert [OM.PC] Stat Oth 12/08/20 04:19 Ordered Medication Orders Dextrose/Water (Dextrose 50% In Water) 50 ml IV ASDIRECTED PRN PRN Reason: Hypoglycemia Glucagon (Glucagen) 1 mg IM ASDIRECTED PRN PRN Reason: Hypoglycemia Sodium Chloride (Saline Flush) 10 ml FLUSH ASDIRECTED PRN PRN Reason: Keep Vein Open Last Admin: 12/08/20 04:26 Dose: 10 ml Documented by: PAMELA Sodium Chloride (Saline Flush) 2.5 ml FLUSH ASDIRECTED PRN PRN Reason: Keep Vein Open Last Admin: 12/08/20 04:26 Dose: 2.5 ml Documented by: PAMELA Labs: Laboratory Tests 12/08/20 12/08/20 12/08/20 Range/Units 04:10 04:24 04:24 WBC 6.33 (4.0-11.0) K/uL RBC 4.33 L (4.50-5.90) M/uL Hgb 10.4 L (13.0-17.0) g/dL Hct 32.5 L (38.0-50.0) % MCV 75.1 L (80.0-98.0) fL MCH 24.0 L (27.0-32.0) pg MCHC 32.0 (31.0-37.0) g/dL RDW Std Deviation 37.2 (28.0-62.0) fl RDW Coeff of Nadia 14 (11.0-15.0) % Plt Count 277 (150-400) K/uL MPV 9.10 (7.40-12.00) fL Neut % (Auto) 61.9 (48.0-80.0) % Lymph % (Auto) 27.6 (16.0-40.0) % [place] % (Auto) 8.5 (0.0-15.0) % Eos % (Auto) 1.7 (0.0-7.0) % Baso % (Auto) 0.3 (0.0-1.5) % Neut # (Auto) 3.9 (1.4-5.7) K/uL Lymph # (Auto) 1.8 (0.6-2.4) K/uL [place] # (Auto) 0.5 (0.0-0.8) K/uL Eos # (Auto) 0.1 (0.0-0.7) K/uL Baso # (Auto) 0.0 (0.0-0.1) K/uL Nucleated RBC % 0.0 /100WBC Nucleated RBCs # 0 K/uL Sodium 139 (136-148) mmol/L Potassium 4.1 (3.5-5.1) mmol/L Chloride 103 (98-107) mmol/L Carbon Dioxide 24.8 (21.0-32.0) mmol/L BUN 17 (7.0-18.0) mg/dL Creatinine 2.1 H (0.8-1.3) mg/dL Est Cr Clr Drug Dosing TNP Estimated GFR (MDRD) 36.2 ml/min Glucose 340 H (74-106) mg/dL POC Glucose (60-110) mg/dL Calcium 8.9 (8.5-10.1) mg/dL Total Bilirubin 0.8 (0.2-1.0) mg/dL AST 11 L (15-37) IU/L ALT 16 (14-63) IU/L Alkaline Phosphatase 69 (46-116) U/L Total Protein 6.9 (6.4-8.2) g/dL Albumin 3.4 (3.4-5.0) g/dL Globulin 3.5 (2.6-4.0) g/dL Albumin/Globulin Ratio 1.0 (0.9-1.6) Urine Color YELLOW Urine Appearance CLEAR Urine pH 6.0 (5.0-8.0) Ur Specific [place] 1.015 (1.001-1.035) Urine Protein 100 H (NEGATIVE) mg/dL Urine Glucose (UA) >=1000 (NEGATIVE) mg/dL Urine Ketones NEGATIVE (NEGATIVE) mg/dL Urine Occult Blood TRACE-INTACT H (NEGATIVE) Urine Nitrite NEGATIVE (NEGATIVE) Urine Bilirubin NEGATIVE (NEGATIVE) Urine Urobilinogen 0.2 (<2.0) EU/dL Ur Leukocyte Esterase NEGATIVE (NEGATIVE) Urine RBC NONE SEEN (0-2/HPF) Urine WBC 0-1 (0-5/HPF) Ur Epithelial Cells RARE (NONE-FEW) Urine Bacteria RARE (NEGATIVE) Urine Mucus LIGHT (NONE-MOD) 12/08/20 Range/Units 06:03 WBC (4.0-11.0) K/uL RBC (4.50-5.90) M/uL Hgb (13.0-17.0) g/dL Hct (38.0-50.0) % MCV (80.0-98.0) fL MCH (27.0-32.0) pg MCHC (31.0-37.0) g/dL RDW Std Deviation (28.0-62.0) fl RDW Coeff of Nadia (11.0-15.0) % Plt Count (150-400) K/uL MPV (7.40-12.00) fL Neut % (Auto) (48.0-80.0) % Lymph % (Auto) (16.0-40.0) % [place] % (Auto) (0.0-15.0) % Eos % (Auto) (0.0-7.0) % Baso % (Auto) (0.0-1.5) % Neut # (Auto) (1.4-5.7) K/uL Lymph # (Auto) (0.6-2.4) K/uL [place] # (Auto) (0.0-0.8) K/uL Eos # (Auto) (0.0-0.7) K/uL Baso # (Auto) (0.0-0.1) K/uL Nucleated RBC % /100WBC Nucleated RBCs # K/uL Sodium (136-148) mmol/L Potassium (3.5-5.1) mmol/L Chloride (98-107) mmol/L Carbon Dioxide (21.0-32.0) mmol/L BUN (7.0-18.0) mg/dL Creatinine (0.8-1.3) mg/dL Est Cr Clr Drug Dosing Estimated GFR (MDRD) ml/min Glucose (74-106) mg/dL POC Glucose 123 H (60-110) mg/dL Calcium (8.5-10.1) mg/dL Total Bilirubin (0.2-1.0) mg/dL AST (15-37) IU/L ALT (14-63) IU/L Alkaline Phosphatase (46-116) U/L Total Protein (6.4-8.2) g/dL Albumin (3.4-5.0) g/dL Globulin (2.6-4.0) g/dL Albumin/Globulin Ratio (0.9-1.6) Urine Color Urine Appearance Urine pH (5.0-8.0) Ur Specific [place] (1.001-1.035) Urine Protein (NEGATIVE) mg/dL Urine Glucose (UA) (NEGATIVE) mg/dL Urine Ketones (NEGATIVE) mg/dL Urine Occult Blood (NEGATIVE) Urine Nitrite (NEGATIVE) Urine Bilirubin (NEGATIVE) Urine Urobilinogen (<2.0) EU/dL Ur Leukocyte Esterase (NEGATIVE) Urine RBC (0-2/HPF) Urine WBC (0-5/HPF) Ur Epithelial Cells (NONE-FEW) Urine Bacteria (NEGATIVE) Urine Mucus (NONE-MOD) Meds: Medications Generic Name Dose Route Start Last Admin Trade Name Freq PRN Reason Stop Dose Admin Dextrose/Water 50 ml 12/08/20 05:05 Dextrose 50% In Water IV ASDIRECTED PRN Hypoglycemia Glucagon 1 mg 12/08/20 05:05 Glucagen IM ASDIRECTED PRN Hypoglycemia Sodium Chloride 10 ml 12/08/20 04:19 12/08/20 04:26 Saline Flush FLUSH 10 ml ASDIRECTED PRN Administration Keep Vein Open Sodium Chloride 2.5 ml 12/08/20 04:19 12/08/20 04:26 Saline Flush FLUSH 2.5 ml ASDIRECTED PRN Administration Keep Vein Open Discontinued Medications Generic Name Dose Route Start Last Admin Trade Name Minor PRN Reason Stop Dose Admin Clonidine HCl 0.2 mg 12/08/20 05:09 12/08/20 05:14 Catapres PO 12/08/20 05:10 0.2 mg ONETIME ONE Administration Sodium Chloride 1,000 mls @ 999 mls/hr 12/08/20 04:19 12/08/20 04:26 Normal Saline IV 12/08/20 05:19 999 mls/hr .Bolus ONE Administration Insulin Human Regular 5 unit 12/08/20 05:05 12/08/20 05:12 Novolin R IVPUSH 12/08/20 05:06 5 units ONETIME ONE Administration Protocol Departure - Departure Time of Disposition: 06:35 Disposition: Home, Self-Care 01 Condition: Good Clinical Impression: Hyperglycemia, Weakness Hypertension Qualifiers: Hypertension type: essential hypertension Qualified Code(s): I10 - Essential (primary) hypertension - Discharge Information Instructions: Weakness, [id number], Hyperglycemia, [id number], Hyp ertension, Adult, [id number] Referrals: PCP,None [Primary Care Provider] - Forms: ED Department Discharge Additional Instructions: You are seen in the ER today secondary to your generalized weakness. It appears that you had an elevated blood sugar which can lead to dehydration and symptoms of generalized weakness. You have been hydrated with 1 L of normal saline here in the ED and is been given an additional dose of 5 units of insulin which has resulted in significant improvement in your blood sugar level. Your blood pressure was also markedly elevated upon arrival. A CT scan of your head did not reveal any evidence of acute stroke. You are given clonidine 0.2 mg in the ER which is normalized your blood pressure. Please make an appointment to see your family doctor so they continue to monitor and adjust your blood pressure medicines as well as your diabetes medicines. Drink plenty of fluids and get plenty of rest over the next couple days. The following information is given to patients seen in the emergency department who are being discharged to home. This information is to outline your options for follow-up care. We provide all patients seen in our emergency department with a follow-up referral. The need for follow-up, as well as the timing and circumstances, are variable depending upon the specifics of your emergency department visit. If you don't have a primary care physician on staff, we will provide you with a referral. We always advise you to contact your personal physician following an emergency department visit to inform them of the circumstance of the visit and for follow-up with them and/or the need for any referrals to a consulting specialist. The emergency department will also refer you to a specialist when appropriate. This referral assures that you have the opportunity for follow-up care with a specialist. All of these measure are taken in an effort to provide you with optimal care, which includes your follow-up. Under all circumstances we always encourage you to contact your private physician who remains a resource for coordinating your care. When calling for follow-up care, please make the office aware that this follow-up is from your recent emergency room visit. If for any reason you are refused follow-up, please contact the [facility] Emergency Department at and asked to speak to the emergency department charge nurse. [facility] - Primary Care [address] [place] [address] [place] [address] Sepsis Event Note (ED) - Evaluation Sepsis Screening Result: No Definite Risk - Focused Exam Vital Signs: Vital Signs Temp Pulse Resp BP BP Pulse Ox 12/08/20 06:12 86 14 129/91 H 100 12/08/20 05:15 88 14 216/119 H 98 12/08/20 05:14 216/119 H 12/08/20 05:00 87 16 228/115 H 98 12/08/20 04:31 93 14 203/122 H 100 12/08/20 04:16 97.8 F 100 18 222/137 H 98 - My Orders Last 24 Hours: My Active Orders 12/08/20 04:19 EKG Documentation Completion [RC] AM Sodium Chloride 0.9% [Saline Flush] 10 ml FLUSH ASDIRECTED PRN Sodium Chloride 0.9% [Saline Flush] 2.5 ml FLUSH ASDIRECTED PRN Saline Lock Insert [OM.PC] Stat 12/08/20 05:05 Dextrose 50% in Water 50 ml IV ASDIRECTED PRN Glucagon,Human Recombinant [GlucaGen] 1 mg IM ASDIRECTED PRN - Assessment/Plan Last 24 Hours: My Active Orders 12/08/20 04:19 EKG Documentation Completion [RC] AM Sodium Chloride 0.9% [Saline Flush] 10 ml FLUSH ASDIRECTED PRN Sodium Chloride 0.9% [Saline Flush] 2.5 ml FLUSH ASDIRECTED PRN Saline Lock Insert [OM.PC] Stat 12/08/20 05:05 Dextrose 50% in Water 50 ml IV ASDIRECTED PRN Glucagon,Human Recombinant [GlucaGen] 1 mg IM ASDIRECTED PRN
== END 2020-12-08 07:03 | disposition home or self-care (01) ==
LOC: MW.ED 04:10
DX: E11.65 Type 2 diabetes mellitus with hyperglycemia (principal); I10 Essential (primary) hypertension; R53.1 Weakness
CPT/HCPCS: 36415; 70450; 71045; 80053; 81001; 82962; 85025; 93005; 99285; A9270; J7030; 93010; 99283; J1815-GY

== ENCOUNTER 2020-12-16 00:09 | Observation (INO) | payer MEDICARE ==
[2020-12-16] MEDS ORDERED: Sodium Chloride 0.9% 10 ML Syringe FLUSH PRN (00:20)
[2020-12-16] MEDS ORDERED: Sodium Chloride 0.9% 1,000 ML IV ONE (00:20)
[2020-12-16] MEDS ORDERED: Sodium Chloride 0.9% 2.5 ML Syringe FLUSH PRN (00:20)
[2020-12-16 00:46] LABS: BLOOD UREA NITROGEN,BUN 18 mg/dL (7.0-18.0); CARBON DIOXIDE,CO2 26.3 mmol/L (21.0-32.0); CHLORIDE,CL 103 mmol/L (98-107); GLUCOSE RANDOM 68 mg/dL (74-106); POTASSIUM,K 4.1 mmol/L (3.5-5.1); SODIUM,NA 140 mmol/L (136-148)
--- NOTE | 2020-12-16 00:56 | CR ---
INDICATION: Dizziness. ETOH. COMPARISON: 12/08/2020 FINDINGS: An erect single view of the chest was obtained at 0045 hours. Again seen is mild eventration of both hemidiaphragms. The lungs otherwise remain clear. No focal or diffuse infiltrates are present. The heart remains normal in size. The mediastinum is normal in appearance. The osseous structures are normal in appearance for the patient`s age. IMPRESSION: No active disease seen in the chest. Dictated by Fito Diaz MD @ Dec 16 2020 12:53AM Signed by Dr. Fito Diaz @ Dec 16 2020 12:55AM
--- NOTE | 2020-12-16 00:56 | EDM.PDOC ---
ED HPI GENERAL MEDICAL PROBLEM - General Chief Complaint: General Stated Complaint: Dizziness Time Seen by Provider: 12/16/20 00:20 - History of Present Illness INITIAL COMMENTS - FREE TEXT/NARRATIVE: HISTORY AND PHYSICAL: History of present illness: This is an 89-year-old gentleman with history significant for hypertension, vertigo, diabetes, non-STEMI, who presents ER today secondary to dizziness when he stood up to walk today from his bedroom. Patient denies any other symptomatology. Patient has any recent fevers, shakes, chills, nausea, vomiting, diarrhea, chest pain, abdominal pain, dysuria, frequency, urgency, hem aturia. Patient was brought in by EMS secondary to concerns of an abnormal EKG however upon presentation to the ED, patient's EKG is unchanged from his baseline without any elevation his ST segments in V1 V2 V3. There was slight J- point elevation V1 V2 V3 on the EKG brought in by EMS. Patient denies any recent cough, cold, congestion. Patient reports he has been tolerating p.o. solids and liquids well and did eat dinner tonight. Review of systems: As per history of present illness and below otherwise all systems reviewed and negative. Past medical history: As per history of present illness and as reviewed below otherwise noncontributory. Surgical history: As per history of present illness and as reviewed below otherwise noncontributory. Social history: No reported history of drug or alcohol abuse. Family history: As per history of present illness and as reviewed below otherwise noncontributory. Physical exam: This patient was seen and evaluated during the 2019 SARS-CoV-2 novel coronavirus pandemic period. Community viral transmission is ongoing at time of this encounter and the emergency department is operating under pandemic response procedures. Constitutional: Patient is oriented to person, place, and time. Appears well- developed and well-nourished. No distress. HEENT: Moist mucous membranes Head: Normocephalic and atraumatic Eyes: Right eye exhibits no discharge. Left eye exhibits no discharge. No scleral icterus Neck: Normal range of motion. No tracheal deviation present. Cardiovascular: Normal rate and regular rhythm. Pulmonary: Effort normal, no respiratory distress. Abdominal: No distention Musculoskeletal: Normal range of motion Neurologic: Alert and oriented to person, place and time. Patient is able to answer questions appropriately. Skin: [place], warm and dry. Psychiatric: Normal mood and affect. Behavior is normal. Judgment and thought content normal. Nursing note and vital signs have been reviewed Diagnostics: CBC, CMP unremarkable. Urinalysis: Chest Xray: Normal cardiac silhouette No infiltrates or effusions identified. No PTX No evidence of acute bony fracture. 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 Patient's ER work-up appears to be unremarkable. Patient's labs and EKG are all within normal limits. Patient did present with a low blood sugar is unclear whether or not this might be a contributing factor to his dizziness. Patient has been given 2 L of NSS and will be reevaluated. Upon reevaluation, the patient was noted to be in A. fib with RVR. Patient has episodes of what appears to be wandering atrial pacemaker/multiatrial tachycardia however when patient was stood up in order to urinate he started feeling dizzy and had a heart rate of 1 30-1 50 and appeared to be atrial fibrillation. Patient will be admitted for evaluation. Will start patient on Cardizem drip at 5 mg/min and monitor. 6:15 AM: Patient has been placed on a Cardizem drip secondary to episodes of witnessed A. fib with rapid RVR that was persistent when he stood up he became dizzy. Upon laying back down, the patient remained tachycardic. Patient was placed on a Cardizem drip at 5 mg/h. Patient was given Cardizem 240 CD and Cardizem drip has been weaned to off. Patient's heart rate has remained at approximately 95-100 bpm and appears to have a wandering atrial pacemaker versus episodes of rate controlled A. fib. I have discussed the case with Dr. Leal and agrees to assist with admission of patient for further evaluation new onset atrial fibrillation with RVR resulting in dizziness. Critical Care: The high probability of sudden, clinically significant deterioration in the patient's condition required the highest level of my preparedness to intervene urgently. The services I provided to this patient were to treat and/or prevent clinically significant deterioration. Services included the following: chart data review, reviewing nursing notes and/or old charts, documentation time, nurse consultant collaboration regarding findings and treatment options, medication orders and management, direct patient care, vital sign assessments and ordering, interpreting and reviewing diagnostic studies/lab tests. Aggregate critical care time includes only time during which I was engaged inwork directly related to the patient's care, as described above, whether at the bedside or elsewhere in the Emergency Department. It did not include time spent performing other reported procedures or the services of residents, students, nurses or physician assistants. Critical Care Time: 35 minutes - Related Data Allergies Allergy/AdvReac Type Severity Reaction Status Date / Time No Known Allergies Allergy Verified 12/16/20 00:18 Home Meds: Home Meds . [Unable to Verify Home Med List] 12/16/20 [History] Past Medical History HEENT History: Reports: None Cardiovascular History: Reports: Hypertension Endocrine/Metabolic History: Reports: Diabetes, Type II Hematologic History: Reports: Anemia - Infectious Disease History Infectious Disease History: Reports: None - Past Surgical History Cardiovascular Surgical History: Reports: None Social & Family History - Family History Family Medical History: No Pertinent Family History - Caffeine Use Caffeine Use: Reports: None - Recreational Drug Use Recreational Drug Use: No ED ROS GENERAL - Review of Systems Review Of Systems: See Below ED EXAM, GENERAL - Physical Exam Exam: See Below Course - Vital Signs Last Recorded V/S: Last Vital Signs Temp 97.8 F 12/16/20 06:10 Pulse 80 12/16/20 06:10 Resp 16 12/16/20 06:10 BP 159/73 H 12/16/20 06:13 Pulse Ox 97 12/16/20 06:10 - Orders/Labs/Meds Orders: Active Orders 24 hr Category Date Time Status Blood Glucose Check, Bedside [RC] ONETIME Care 12/16/20 00:32 Active EKG 12 Lead [EKG Documentation Completion] [RC] STAT Care 12/16/20 00:14 Active Diltiazem [Cardizem] 100 mg Med 12/16/20 03:00 Active Sodium Chloride 0.9% [Normal Saline] 100 ml IV NOW Sodium Chloride 0.9% [Saline Flush] Med 12/16/20 00:20 Active 10 ml FLUSH ASDIRECTED PRN Sodium Chloride 0.9% [Saline Flush] Med 12/16/20 00:20 Active 2.5 ml FLUSH ASDIRECTED PRN Saline Lock Insert [OM.PC] Stat Oth 12/16/20 00:20 Ordered Medication Orders Diltiazem HCl 100 mg/ Sodium (Chloride) 100 mls @ 5 mls/hr IV NOW CLIFTON; Protocol Last Admin: 12/16/20 02:50 Dose: 5 mg/hr, 5 mls/hr Documented by: DWIGHT Sodium Chloride (Saline Flush) 10 ml FLUSH ASDIRECTED PRN PRN Reason: Keep Vein Open Last Admin: 12/16/20 00:26 Dose: 10 ml Documented by: ODILIA Sodium Chloride (Saline Flush) 2.5 ml FLUSH ASDIRECTED PRN PRN Reason: Keep Vein Open Last Admin: 12/16/20 00:26 Dose: 2.5 ml Documented by: ODILIA Labs: Laboratory Tests 12/16/20 12/16/20 12/16/20 Range/Units 00:20 00:20 00:20 WBC 9.03 (4.0-11.0) K/uL RBC 5.03 (4.50-5.90) M/uL Hgb 12.1 L (13.0-17.0) g/dL Hct 37.7 L (38.0-50.0) % MCV 75.0 L (80.0-98.0) fL MCH 24.1 L (27.0-32.0) pg MCHC 32.1 (31.0-37.0) g/dL RDW Std Deviation 36.2 (28.0-62.0) fl RDW Coeff of Nadia 13 (11.0-15.0) % Plt Count 335 (150-400) K/uL MPV 9.40 (7.40-12.00) fL Neut % (Auto) 51.6 (48.0-80.0) % Lymph % (Auto) 38.3 (16.0-40.0) % [place] % (Auto) 8.7 (0.0-15.0) % Eos % (Auto) 1.2 (0.0-7.0) % Baso % (Auto) 0.2 (0.0-1.5) % Neut # (Auto) 4.7 (1.4-5.7) K/uL Lymph # (Auto) 3.5 H (0.6-2.4) K/uL [place] # (Auto) 0.8 (0.0-0.8) K/uL Eos # (Auto) 0.1 (0.0-0.7) K/uL Baso # (Auto) 0.0 (0.0-0.1) K/uL Nucleated RBC % 0.0 /100WBC Nucleated RBCs # 0 K/uL INR APTT (18.6-31.3) SEC Sodium 140 (136-148) mmol/L Potassium 4.1 (3.5-5.1) mmol/L Chloride 103 (98-107) mmol/L Carbon Dioxide 26.3 (21.0-32.0) mmol/L BUN 18 (7.0-18.0) mg/dL Creatinine 2.1 H (0.8-1.3) mg/dL Est Cr Clr Drug Dosing TNP Estimated GFR (MDRD) 36.2 ml/min Glucose 68 L (74-106) mg/dL Calcium 9.5 (8.5-10.1) mg/dL Total Bilirubin 1.2 H (0.2-1.0) mg/dL AST 12 L (15-37) IU/L ALT 17 (14-63) IU/L Alkaline Phosphatase 67 (46-116) U/L Troponin I 0.052 (0.000-0.056) ng/mL Total Protein 7.6 (6.4-8.2) g/dL Albumin 3.7 (3.4-5.0) g/dL Globulin 3.9 (2.6-4.0) g/dL Albumin/Globulin Ratio 0.9 (0.9-1.6) TSH 3rd Generation 4.62 H (0.36-3.74) uIU/mL Urine Color Urine Appearance Urine pH (5.0-8.0) Ur Specific [place] (1.001-1.035) Urine Protein (NEGATIVE) mg/dL Urine Glucose (UA) (NEGATIVE) mg/dL Urine Ketones (NEGATIVE) mg/dL Urine Occult Blood (NEGATIVE) Urine Nitrite (NEGATIVE) Urine Bilirubin (NEGATIVE) Urine Urobilinogen (<2.0) EU/dL Ur Leukocyte Esterase (NEGATIVE) Urine RBC (0-2/HPF) Urine WBC (0-5/HPF) Ur Epithelial Cells (NONE-FEW) Urine Bacteria (NEGATIVE) Urine Mucus (NONE-MOD) Ethyl Alcohol < 3.0 mg/dL SARS-CoV-2 RNA (TEA) (NEGATIVE) 12/16/20 12/16/20 12/16/20 Range/Units 00:20 02:40 03:25 WBC (4.0-11.0) K/uL RBC (4.50-5.90) M/uL Hgb (13.0-17.0) g/dL Hct (38.0-50.0) % MCV (80.0-98.0) fL MCH (27.0-32.0) pg MCHC (31.0-37.0) g/dL RDW Std Deviation (28.0-62.0) fl RDW Coeff of Nadia (11.0-15.0) % Plt Count (150-400) K/uL MPV (7.40-12.00) fL Neut % (Auto) (48.0-80.0) % Lymph % (Auto) (16.0-40.0) % [place] % (Auto) (0.0-15.0) % Eos % (Auto) (0.0-7.0) % Baso % (Auto) (0.0-1.5) % Neut # (Auto) (1.4-5.7) K/uL Lymph # (Auto) (0.6-2.4) K/uL [place] # (Auto) (0.0-0.8) K/uL Eos # (Auto) (0.0-0.7) K/uL Baso # (Auto) (0.0-0.1) K/uL Nucleated RBC % /100WBC Nucleated RBCs # K/uL INR 1.02 APTT 27.7 (18.6-31.3) SEC Sodium (136-148) mmol/L Potassium (3.5-5.1) mmol/L Chloride (98-107) mmol/L Carbon Dioxide (21.0-32.0) mmol/L BUN (7.0-18.0) mg/dL Creatinine (0.8-1.3) mg/dL Est Cr Clr Drug Dosing Estimated GFR (MDRD) ml/min Glucose (74-106) mg/dL Calcium (8.5-10.1) mg/dL Total Bilirubin (0.2-1.0) mg/dL AST (15-37) IU/L ALT (14-63) IU/L Alkaline Phosphatase (46-116) U/L Troponin I (0.000-0.056) ng/mL Total Protein (6.4-8.2) g/dL Albumin (3.4-5.0) g/dL Globulin (2.6-4.0) g/dL Albumin/Globulin Ratio (0.9-1.6) TSH 3rd Generation (0.36-3.74) uIU/mL Urine Color YELLOW Urine Appearance CLEAR Urine pH 5.0 (5.0-8.0) Ur Specific [place] 1.020 (1.001-1.035) Urine Protein 100 H (NEGATIVE) mg/dL Urine Glucose (UA) NEGATIVE (NEGATIVE) mg/dL Urine Ketones NEGATIVE (NEGATIVE) mg/dL Urine Occult Blood LARGE H (NEGATIVE) Urine Nitrite NEGATIVE (NEGATIVE) Urine Bilirubin NEGATIVE (NEGATIVE) Urine Urobilinogen 0.2 (<2.0) EU/dL Ur Leukocyte Esterase SMALL H (NEGATIVE) Urine RBC 12-13 (0-2/HPF) Urine WBC 0-2 (0-5/HPF) Ur Epithelial Cells OCCASIONAL (NONE-FEW) Urine Bacteria FEW (NEGATIVE) Urine Mucus LIGHT (NONE-MOD) Ethyl Alcohol mg/dL SARS-CoV-2 RNA (TEA) NEGATIVE (NEGATIVE) 12/16/20 Range/Units 03:28 WBC (4.0-11.0) K/uL RBC (4.50-5.90) M/uL Hgb (13.0-17.0) g/dL Hct (38.0-50.0) % MCV (80.0-98.0) fL MCH (27.0-32.0) pg MCHC (31.0-37.0) g/dL RDW Std Deviation (28.0-62.0) fl RDW Coeff of Nadia (11.0-15.0) % Plt Count (150-400) K/uL MPV (7.40-12.00) fL Neut % (Auto) (48.0-80.0) % Lymph % (Auto) (16.0-40.0) % [place] % (Auto) (0.0-15.0) % Eos % (Auto) (0.0-7.0) % Baso % (Auto) (0.0-1.5) % Neut # (Auto) (1.4-5.7) K/uL Lymph # (Auto) (0.6-2.4) K/uL [place] # (Auto) (0.0-0.8) K/uL Eos # (Auto) (0.0-0.7) K/uL Baso # (Auto) (0.0-0.1) K/uL Nucleated RBC % /100WBC Nucleated RBCs # K/uL INR APTT (18.6-31.3) SEC Sodium (136-148) mmol/L Potassium (3.5-5.1) mmol/L Chloride (98-107) mmol/L Carbon Dioxide (21.0-32.0) mmol/L BUN (7.0-18.0) mg/dL Creatinine (0.8-1.3) mg/dL Est Cr Clr Drug Dosing Estimated GFR (MDRD) ml/min Glucose (74-106) mg/dL Calcium (8.5-10.1) mg/dL Total Bilirubin (0.2-1.0) mg/dL AST (15-37) IU/L ALT (14-63) IU/L Alkaline Phosphatase (46-116) U/L Troponin I 0.062 H* (0.000-0.056) ng/mL Total Protein (6.4-8.2) g/dL Albumin (3.4-5.0) g/dL Globulin (2.6-4.0) g/dL Albumin/Globulin Ratio (0.9-1.6) TSH 3rd Generation (0.36-3.74) uIU/mL Urine Color Urine Appearance Urine pH (5.0-8.0) Ur Specific [place] (1.001-1.035) Urine Protein (NEGATIVE) mg/dL Urine Glucose (UA) (NEGATIVE) mg/dL Urine Ketones (NEGATIVE) mg/dL Urine Occult Blood (NEGATIVE) Urine Nitrite (NEGATIVE) Urine Bilirubin (NEGATIVE) Urine Urobilinogen (<2.0) EU/dL Ur Leukocyte Esterase (NEGATIVE) Urine RBC (0-2/HPF) Urine WBC (0-5/HPF) Ur Epithelial Cells (NONE-FEW) Urine Bacteria (NEGATIVE) Urine Mucus (NONE-MOD) Ethyl Alcohol mg/dL SARS-CoV-2 RNA (TEA) (NEGATIVE) Meds: Medications Generic Name Dose Route Start Last Admin Trade Name Freq PRN Reason Stop Dose Admin Diltiazem HCl 100 mg/ Sodium 100 mls @ 5 mls/hr 12/16/20 03:00 12/16/20 02:50 Chloride IV 5 mg/hr NOW CLIFTON 5 mls/hr Administration Protocol 5 MG/HR Sodium Chloride 10 ml 12/16/20 00:20 12/16/20 00:26 Saline Flush FLUSH 10 ml ASDIRECTED PRN Administration Keep Vein Open Sodium Chloride 2.5 ml 12/16/20 00:20 12/16/20 00:26 Saline Flush FLUSH 2.5 ml ASDIRECTED PRN Administration Keep Vein Open Discontinued Medications Generic Name Dose Route Start Last Admin Trade Name Freq PRN Reason Stop Dose Admin Diltiazem HCl Confirm 12/16/20 04:17 12/16/20 04:31 Cardizem Cd Administered 12/16/20 04:18 Not Given Dose 240 mg .ROUTE .STK-MED ONE Diltiazem HCl 240 mg 12/16/20 04:31 12/16/20 04:20 Cardizem Cd PO 12/16/20 04:32 240 mg ONETIME ONE Administration Sodium Chloride 1,000 mls @ 999 mls/hr 12/16/20 00:20 12/16/20 00:25 Normal Saline IV 12/16/20 01:20 999 mls/hr .Bolus ONE Administration Sodium Chloride 1,000 mls @ 999 mls/hr 12/16/20 01:32 12/16/20 01:33 Normal Saline IV 12/16/20 02:32 999 mls/hr NOW STA Administration Departure - Departure Time of Disposition: 03:00 Disposition: Admitted As Inpatient 67 Condition: Good Clinical Impression: Dizziness, Atrial fibrillation with RVR, New onset atrial fibrillation - Discharge Information Sepsis Event Note (ED) - Evaluation Sepsis Screening Result: No Definite Risk - Focused Exam Vital Signs: Vital Signs Temp Pulse Pulse Resp BP BP Pulse Ox 12/16/20 05:22 89 18 134/77 94 L 12/16/20 04:20 88 121/67 12/16/20 02:55 97.6 F 101 H 18 136/69 96 12/16/20 02:15 97.3 F 109 H 18 137/70 94 L 12/16/20 01:30 92 18 159/72 H 95 12/16/20 00:15 98 F 89 14 165/73 H 95 - My Orders Last 24 Hours: My Active Orders 12/16/20 00:14 EKG 12 Lead [EKG Documentation Completion] [RC] STAT 12/16/20 00:20 Sodium Chloride 0.9% [Saline Flush] 10 ml FLUSH ASDIRECTED PRN Sodium Chloride 0.9% [Saline Flush] 2.5 ml FLUSH ASDIRECTED PRN Saline Lock Insert [OM.PC] Stat 12/16/20 00:32 Blood Glucose Check, Bedside [RC] ONETIME 12/16/20 03:00 Diltiazem [Cardizem] 100 mg Sodium Chloride 0.9% [Normal Saline] 100 ml IV NOW - Assessment/Plan Last 24 Hours: My Active Orders 12/16/20 00:14 EKG 12 Lead [EKG Documentation Completion] [RC] STAT 12/16/20 00:20 Sodium Chloride 0.9% [Saline Flush] 10 ml FLUSH ASDIRECTED PRN Sodium Chloride 0.9% [Saline Flush] 2.5 ml FLUSH ASDIRECTED PRN Saline Lock Insert [OM.PC] Stat 12/16/20 00:32 Blood Glucose Check, Bedside [RC] ONETIME 12/16/20 03:00 Diltiazem [Cardizem] 100 mg Sodium Chloride 0.9% [Normal Saline] 100 ml IV NOW
[2020-12-16] MEDS ORDERED: Sodium Chloride 0.9% 1,000 ML IV STA (01:32)
[2020-12-16] MEDS ORDERED: Diltiazem 100 MG in Sodium Chloride 0.9% 100 ML IV SCH (03:00)
[2020-12-16] MEDS ORDERED: Diltiazem 120 MG Cap.CD ONE (04:17)
[2020-12-16] MEDS ORDERED: Diltiazem 120 MG Cap.CD PO ONE (04:31)
[2020-12-16] MEDS ORDERED: Acetaminophen 325 MG Tab PO PRN (07:06)
[2020-12-16] MEDS ORDERED: Glucagon,Human Recombinant 1 MG Vial IM PRN (07:09)
[2020-12-16] MEDS ORDERED: 50% Dextrose in Water 50 ML Syringe IV PRN (07:09)
[2020-12-16] MEDS ORDERED: 50% Dextrose in Water 50 ML Syringe IVPUSH ONE (07:31)
[2020-12-16] MEDS ORDERED: Magnesium Sulfate/Water 2 GM/50 ML BAG IV ONE (08:24)
[2020-12-16] MEDS ORDERED: Heparin Sodium/0.45% NaCl 500 ML IV SCH (09:15)
[2020-12-16] MEDS ORDERED: Heparin Sodium 5,000 Units/ML Vial IVPUSH ONE (09:16)
[2020-12-16] MEDS: Insulin Aspart 100 Units/ML 3 ML Pen SUBCUT SCH ×2 (09:43→11:30)
[2020-12-16 10:17] LABS: BLOOD UREA NITROGEN,BUN 20 mg/dL (7.0-18.0); CARBON DIOXIDE,CO2 23.8 mmol/L (21.0-32.0); CHLORIDE,CL 106 mmol/L (98-107); GLUCOSE RANDOM 128 mg/dL (74-106); POTASSIUM,K 4.7 mmol/L (3.5-5.1); SODIUM,NA 141 mmol/L (136-148)
--- NOTE | 2020-12-16 11:38 | PCM.HP.2 ---
H&P History of Present Illness - General Date of Service: 12/16/20 Admit Problem/Dx: Admission Diagnosis/Problem Admission Diagnosis/Problem Afib, Atrial fibrillation Source of Information: Patient History Limitations: Reports: Other (Upper Sorbian speaking) - History of Present Illness Initial Comments - Free Text/Narative: 89-year-old male was admitted for atrial fibrillation with RVR. He has a PMH of NSTEMI, DM type 2, CKD and HTN. Patient is khmer speaking and an supervisor [employer] was used to obtain history. Patient complained of dizziness, nausea and vomiting which prompted him to come to the hospital. He reports feeling dizziness on and off for the past 2 months. He notes feeling nausea, vomited and was unable to walk yesterday evening. He denies having any chest pain or shortness of breath, fevers, chills, sore throat, cough, abdominal pain, diarrhea, blood in stool or blood in urine. Patient reports moving to [place] from [place] recently and denies following-up with a PCP here. In the ER, patient noted to be in a-fib with RVR. He was given PO cardizem 240 mg and was also started on a Cardizem drip. He was weaned off the cardizem drip in the ER prior to him being admitted to the general medical floor. His troponin was elevated at 0.062, TSH 4.62, creatinine 2.1. COVID-19 test negative. CXR unremarkable. Patient admitted for further evaluation and treatment. - Related Data Allergies/Adverse Reactions: Allergies Allergy/AdvReac Type Severity Reaction Status Date / Time No Known Allergies Allergy Verified 12/16/20 00:18 Home Medications: Home Meds . [Unable to Verify Home Med List] 12/16/20 [History] Past Medical History HEENT History: Reports: None Cardiovascular History: Reports: Hypertension Endocrine/Metabolic History: Reports: Diabetes, Type II Hematologic History: Reports: Anemia - Infectious Disease History Infectious Disease History: Reports: None - Past Surgical History Cardiovascular Surgical History: Reports: None Social & Family History - Family History Family Medical History: No Pertinent Family History - Tobacco Use Tobacco Use Status *Q: Unknown Ever Used Tobacco - Caffeine Use Caffeine Use: Reports: Other Caffeine Use Comment: unknown - Recreational Drug Use Recreational Drug Use: No H&P Review of Systems - Review of Systems: Review Of Systems: Comprehensive ROS is negative, except as noted in HPI. Exam - Exam Exam: See Below - Vital Signs Vital Signs: Last Vital Signs Temp 36.5 C 12/16/20 09:07 Pulse 81 12/16/20 09:07 Resp 16 12/16/20 09:07 BP 142/71 H 12/16/20 09:07 Pulse Ox 95 12/16/20 09:07 Weight: 60 kg - Exam General: Alert, Oriented, Cooperative, Other (NAD) HEENT: Conjunctiva Clear, Hearing Intact, Pupils Equal, Pupils Reactive Lungs: Clear to Auscultation, Normal Respiratory Effort Cardiovascular: Regular Rate, Regular Rhythm GI/Abdominal Exam: Normal Bowel Sounds, Soft, Non-Tender, No Distention Extremities: Normal Inspection, No Pedal Edema Peripheral Pulses: 2+: Radial (L), Radial (R) Skin: Warm, Dry, Intact Neurological: Cranial Nerves Intact, Strength Equal Bilateral, Normal Speech, Normal Tone Psychiatric: Alert, Normal Affect, Normal Mood - Patient Data Lab Results Last 24 hrs: Laboratory Results - last 24 hr 12/16/20 12/16/20 12/16/20 Range/Units 00:20 00:20 00:20 WBC 9.03 (4.0-11.0) K/uL RBC 5.03 (4.50-5.90) M/uL Hgb 12.1 L (13.0-17.0) g/dL Hct 37.7 L (38.0-50.0) % MCV 75.0 L (80.0-98.0) fL MCH 24.1 L (27.0-32.0) pg MCHC 32.1 (31.0-37.0) g/dL RDW Std Deviation 36.2 (28.0-62.0) fl RDW Coeff of Nadia 13 (11.0-15.0) % Plt Count 335 (150-400) K/uL MPV 9.40 (7.40-12.00) fL Neut % (Auto) 51.6 (48.0-80.0) % Lymph % (Auto) 38.3 (16.0-40.0) % [place] % (Auto) 8.7 (0.0-15.0) % Eos % (Auto) 1.2 (0.0-7.0) % Baso % (Auto) 0.2 (0.0-1.5) % Neut # (Auto) 4.7 (1.4-5.7) K/uL Lymph # (Auto) 3.5 H (0.6-2.4) K/uL [place] # (Auto) 0.8 (0.0-0.8) K/uL Eos # (Auto) 0.1 (0.0-0.7) K/uL Baso # (Auto) 0.0 (0.0-0.1) K/uL Nucleated RBC % 0.0 /100WBC Nucleated RBCs # 0 K/uL INR APTT (18.6-31.3) SEC Sodium 140 (136-148) mmol/L Potassium 4.1 (3.5-5.1) mmol/L Chloride 103 (98-107) mmol/L Carbon Dioxide 26.3 (21.0-32.0) mmol/L BUN 18 (7.0-18.0) mg/dL Creatinine 2.1 H (0.8-1.3) mg/dL Est Cr Clr Drug Dosing TNP Estimated GFR (MDRD) 36.2 ml/min Glucose 68 L (74-106) mg/dL POC Glucose (60-110) mg/dL Calcium 9.5 (8.5-10.1) mg/dL Phosphorus (2.6-4.7) mg/dL Magnesium (1.8-2.4) mg/dL Total Bilirubin 1.2 H (0.2-1.0) mg/dL AST 12 L (15-37) IU/L ALT 17 (14-63) IU/L Alkaline Phosphatase 67 (46-116) U/L Troponin I 0.052 (0.000-0.056) ng/mL Total Protein 7.6 (6.4-8.2) g/dL Albumin 3.7 (3.4-5.0) g/dL Globulin 3.9 (2.6-4.0) g/dL Albumin/Globulin Ratio 0.9 (0.9-1.6) TSH 3rd Generation 4.62 H (0.36-3.74) uIU/mL Urine Color Urine Appearance Urine pH (5.0-8.0) Ur Specific [place] (1.001-1.035) Urine Protein (NEGATIVE) mg/dL Urine Glucose (UA) (NEGATIVE) mg/dL Urine Ketones (NEGATIVE) mg/dL Urine Occult Blood (NEGATIVE) Urine Nitrite (NEGATIVE) Urine Bilirubin (NEGATIVE) Urine Urobilinogen (<2.0) EU/dL Ur Leukocyte Esterase (NEGATIVE) Urine RBC (0-2/HPF) Urine WBC (0-5/HPF) Ur Epithelial Cells (NONE-FEW) Urine Bacteria (NEGATIVE) Urine Mucus (NONE-MOD) Ethyl Alcohol < 3.0 mg/dL SARS-CoV-2 RNA (TEA) (NEGATIVE) 12/16/20 12/16/20 12/16/20 Range/Units 00:20 02:40 03:25 WBC (4.0-11.0) K/uL RBC (4.50-5.90) M/uL Hgb (13.0-17.0) g/dL Hct (38.0-50.0) % MCV (80.0-98.0) fL MCH (27.0-32.0) pg MCHC (31.0-37.0) g/dL RDW Std Deviation (28.0-62.0) fl RDW Coeff of Nadia (11.0-15.0) % Plt Count (150-400) K/uL MPV (7.40-12.00) fL Neut % (Auto) (48.0-80.0) % Lymph % (Auto) (16.0-40.0) % [place] % (Auto) (0.0-15.0) % Eos % (Auto) (0.0-7.0) % Baso % (Auto) (0.0-1.5) % Neut # (Auto) (1.4-5.7) K/uL Lymph # (Auto) (0.6-2.4) K/uL [place] # (Auto) (0.0-0.8) K/uL Eos # (Auto) (0.0-0.7) K/uL Baso # (Auto) (0.0-0.1) K/uL Nucleated RBC % /100WBC Nucleated RBCs # K/uL INR 1.02 APTT 27.7 (18.6-31.3) SEC Sodium (136-148) mmol/L Potassium (3.5-5.1) mmol/L Chloride (98-107) mmol/L Carbon Dioxide (21.0-32.0) mmol/L BUN (7.0-18.0) mg/dL Creatinine (0.8-1.3) mg/dL Est Cr Clr Drug Dosing Estimated GFR (MDRD) ml/min Glucose (74-106) mg/dL POC Glucose (60-110) mg/dL Calcium (8.5-10.1) mg/dL Phosphorus (2.6-4.7) mg/dL Magnesium (1.8-2.4) mg/dL Total Bilirubin (0.2-1.0) mg/dL AST (15-37) IU/L ALT (14-63) IU/L Alkaline Phosphatase (46-116) U/L Troponin I (0.000-0.056) ng/mL Total Protein (6.4-8.2) g/dL Albumin (3.4-5.0) g/dL Globulin (2.6-4.0) g/dL Albumin/Globulin Ratio (0.9-1.6) TSH 3rd Generation (0.36-3.74) uIU/mL Urine Color YELLOW Urine Appearance CLEAR Urine pH 5.0 (5.0-8.0) Ur Specific [place] 1.020 (1.001-1.035) Urine Protein 100 H (NEGATIVE) mg/dL Urine Glucose (UA) NEGATIVE (NEGATIVE) mg/dL Urine Ketones NEGATIVE (NEGATIVE) mg/dL Urine Occult Blood LARGE H (NEGATIVE) Urine Nitrite NEGATIVE (NEGATIVE) Urine Bilirubin NEGATIVE (NEGATIVE) Urine Urobilinogen 0.2 (<2.0) EU/dL Ur Leukocyte Esterase SMALL H (NEGATIVE) Urine RBC 12-13 (0-2/HPF) Urine WBC 0-2 (0-5/HPF) Ur Epithelial Cells OCCASIONAL (NONE-FEW) Urine Bacteria FEW (NEGATIVE) Urine Mucus LIGHT (NONE-MOD) Ethyl Alcohol mg/dL SARS-CoV-2 RNA (TEA) NEGATIVE (NEGATIVE) 12/16/20 12/16/20 12/16/20 Range/Units 03:28 03:28 06:52 WBC (4.0-11.0) K/uL RBC (4.50-5.90) M/uL Hgb (13.0-17.0) g/dL Hct (38.0-50.0) % MCV (80.0-98.0) fL MCH (27.0-32.0) pg MCHC (31.0-37.0) g/dL RDW Std Deviation (28.0-62.0) fl RDW Coeff of Nadia (11.0-15.0) % Plt Count (150-400) K/uL MPV (7.40-12.00) fL Neut % (Auto) (48.0-80.0) % Lymph % (Auto) (16.0-40.0) % [place] % (Auto) (0.0-15.0) % Eos % (Auto) (0.0-7.0) % Baso % (Auto) (0.0-1.5) % Neut # (Auto) (1.4-5.7) K/uL Lymph # (Auto) (0.6-2.4) K/uL [place] # (Auto) (0.0-0.8) K/uL Eos # (Auto) (0.0-0.7) K/uL Baso # (Auto) (0.0-0.1) K/uL Nucleated RBC % /100WBC Nucleated RBCs # K/uL INR APTT (18.6-31.3) SEC Sodium (136-148) mmol/L Potassium (3.5-5.1) mmol/L Chloride (98-107) mmol/L Carbon Dioxide (21.0-32.0) mmol/L BUN (7.0-18.0) mg/dL Creatinine (0.8-1.3) mg/dL Est Cr Clr Drug Dosing Estimated GFR (MDRD) ml/min Glucose (74-106) mg/dL POC Glucose 56 L (60-110) mg/dL Calcium (8.5-10.1) mg/dL Phosphorus 3.5 (2.6-4.7) mg/dL Magnesium 1.5 L (1.8-2.4) mg/dL Total Bilirubin (0.2-1.0) mg/dL AST (15-37) IU/L ALT (14-63) IU/L Alkaline Phosphatase (46-116) U/L Troponin I 0.062 H* Cancelled (0.000-0.056) ng/mL Total Protein (6.4-8.2) g/dL Albumin (3.4-5.0) g/dL Globulin (2.6-4.0) g/dL Albumin/Globulin Ratio (0.9-1.6) TSH 3rd Generation (0.36-3.74) uIU/mL Urine Color Urine Appearance Urine pH (5.0-8.0) Ur Specific [place] (1.001-1.035) Urine Protein (NEGATIVE) mg/dL Urine Glucose (UA) (NEGATIVE) mg/dL Urine Ketones (NEGATIVE) mg/dL Urine Occult Blood (NEGATIVE) Urine Nitrite (NEGATIVE) Urine Bilirubin (NEGATIVE) Urine Urobilinogen (<2.0) EU/dL Ur Leukocyte Esterase (NEGATIVE) Urine RBC (0-2/HPF) Urine WBC (0-5/HPF) Ur Epithelial Cells (NONE-FEW) Urine Bacteria (NEGATIVE) Urine Mucus (NONE-MOD) Ethyl Alcohol mg/dL SARS-CoV-2 RNA (TEA) (NEGATIVE) 12/16/20 12/16/20 12/16/20 Range/Units 07:18 07:41 08:01 WBC (4.0-11.0) K/uL RBC (4.50-5.90) M/uL Hgb (13.0-17.0) g/dL Hct (38.0-50.0) % MCV (80.0-98.0) fL MCH (27.0-32.0) pg MCHC (31.0-37.0) g/dL RDW Std Deviation (28.0-62.0) fl RDW Coeff of Nadia (11.0-15.0) % Plt Count (150-400) K/uL MPV (7.40-12.00) fL Neut % (Auto) (48.0-80.0) % Lymph % (Auto) (16.0-40.0) % [place] % (Auto) (0.0-15.0) % Eos % (Auto) (0.0-7.0) % Baso % (Auto) (0.0-1.5) % Neut # (Auto) (1.4-5.7) K/uL Lymph # (Auto) (0.6-2.4) K/uL [place] # (Auto) (0.0-0.8) K/uL Eos # (Auto) (0.0-0.7) K/uL Baso # (Auto) (0.0-0.1) K/uL Nucleated RBC % /100WBC Nucleated RBCs # K/uL INR APTT (18.6-31.3) SEC Sodium (136-148) mmol/L Potassium (3.5-5.1) mmol/L Chloride (98-107) mmol/L Carbon Dioxide (21.0-32.0) mmol/L BUN (7.0-18.0) mg/dL Creatinine (0.8-1.3) mg/dL Est Cr Clr Drug Dosing Estimated GFR (MDRD) ml/min Glucose (74-106) mg/dL POC Glucose 58 L 67 84 (60-110) mg/dL Calcium (8.5-10.1) mg/dL Phosphorus (2.6-4.7) mg/dL Magnesium (1.8-2.4) mg/dL Total Bilirubin (0.2-1.0) mg/dL AST (15-37) IU/L ALT (14-63) IU/L Alkaline Phosphatase (46-116) U/L Troponin I (0.000-0.056) ng/mL Total Protein (6.4-8.2) g/dL Albumin (3.4-5.0) g/dL Globulin (2.6-4.0) g/dL Albumin/Globulin Ratio (0.9-1.6) TSH 3rd Generation (0.36-3.74) uIU/mL Urine Color Urine Appearance Urine pH (5.0-8.0) Ur Specific [place] (1.001-1.035) Urine Protein (NEGATIVE) mg/dL Urine Glucose (UA) (NEGATIVE) mg/dL Urine Ketones (NEGATIVE) mg/dL Urine Occult Blood (NEGATIVE) Urine Nitrite (NEGATIVE) Urine Bilirubin (NEGATIVE) Urine Urobilinogen (<2.0) EU/dL Ur Leukocyte Esterase (NEGATIVE) Urine RBC (0-2/HPF) Urine WBC (0-5/HPF) Ur Epithelial Cells (NONE-FEW) Urine Bacteria (NEGATIVE) Urine Mucus (NONE-MOD) Ethyl Alcohol mg/dL SARS-CoV-2 RNA (TEA) (NEGATIVE) 12/16/20 12/16/20 12/16/20 Range/Units 08:30 09:07 09:30 WBC (4.0-11.0) K/uL RBC (4.50-5.90) M/uL Hgb (13.0-17.0) g/dL Hct (38.0-50.0) % MCV (80.0-98.0) fL MCH (27.0-32.0) pg MCHC (31.0-37.0) g/dL RDW Std Deviation (28.0-62.0) fl RDW Coeff of Nadia (11.0-15.0) % Plt Count (150-400) K/uL MPV (7.40-12.00) fL Neut % (Auto) (48.0-80.0) % Lymph % (Auto) (16.0-40.0) % [place] % (Auto) (0.0-15.0) % Eos % (Auto) (0.0-7.0) % Baso % (Auto) (0.0-1.5) % Neut # (Auto) (1.4-5.7) K/uL Lymph # (Auto) (0.6-2.4) K/uL [place] # (Auto) (0.0-0.8) K/uL Eos # (Auto) (0.0-0.7) K/uL Baso # (Auto) (0.0-0.1) K/uL Nucleated RBC % /100WBC Nucleated RBCs # K/uL INR APTT 26.5 (18.6-31.3) SEC Sodium (136-148) mmol/L Potassium (3.5-5.1) mmol/L Chloride (98-107) mmol/L Carbon Dioxide (21.0-32.0) mmol/L BUN (7.0-18.0) mg/dL Creatinine (0.8-1.3) mg/dL Est Cr Clr Drug Dosing Estimated GFR (MDRD) ml/min Glucose (74-106) mg/dL POC Glucose 126 H (60-110) mg/dL Calcium (8.5-10.1) mg/dL Phosphorus (2.6-4.7) mg/dL Magnesium (1.8-2.4) mg/dL Total Bilirubin (0.2-1.0) mg/dL AST (15-37) IU/L ALT (14-63) IU/L Alkaline Phosphatase (46-116) U/L Troponin I 0.190 H* (0.000-0.056) ng/mL Total Protein (6.4-8.2) g/dL Albumin (3.4-5.0) g/dL Globulin (2.6-4.0) g/dL Albumin/Globulin Ratio (0.9-1.6) TSH 3rd Generation (0.36-3.74) uIU/mL Urine Color Urine Appearance Urine pH (5.0-8.0) Ur Specific [place] (1.001-1.035) Urine Protein (NEGATIVE) mg/dL Urine Glucose (UA) (NEGATIVE) mg/dL Urine Ketones (NEGATIVE) mg/dL Urine Occult Blood (NEGATIVE) Urine Nitrite (NEGATIVE) Urine Bilirubin (NEGATIVE) Urine Urobilinogen (<2.0) EU/dL Ur Leukocyte Esterase (NEGATIVE) Urine RBC (0-2/HPF) Urine WBC (0-5/HPF) Ur Epithelial Cells (NONE-FEW) Urine Bacteria (NEGATIVE) Urine Mucus (NONE-MOD) Ethyl Alcohol mg/dL SARS-CoV-2 RNA (TEA) (NEGATIVE) 12/16/20 12/16/20 Range/Units 09:30 09:30 WBC 9.02 (4.0-11.0) K/uL RBC 4.35 L (4.50-5.90) M/uL Hgb 10.7 L (13.0-17.0) g/dL Hct 32.8 L (38.0-50.0) % MCV 75.4 L (80.0-98.0) fL MCH 24.6 L (27.0-32.0) pg MCHC 32.6 (31.0-37.0) g/dL RDW Std Deviation 36.3 (28.0-62.0) fl RDW Coeff of Nadia 13 (11.0-15.0) % Plt Count 313 (150-400) K/uL MPV 9.70 (7.40-12.00) fL Neut % (Auto) 78.1 (48.0-80.0) % Lymph % (Auto) 15.6 L (16.0-40.0) % [place] % (Auto) 5.8 (0.0-15.0) % Eos % (Auto) 0.4 (0.0-7.0) % Baso % (Auto) 0.1 (0.0-1.5) % Neut # (Auto) 7.0 H (1.4-5.7) K/uL Lymph # (Auto) 1.4 (0.6-2.4) K/uL [place] # (Auto) 0.5 (0.0-0.8) K/uL Eos # (Auto) 0.0 (0.0-0.7) K/uL Baso # (Auto) 0.0 (0.0-0.1) K/uL Nucleated RBC % 0.0 /100WBC Nucleated RBCs # 0 K/uL INR APTT (18.6-31.3) SEC Sodium 141 (136-148) mmol/L Potassium 4.7 (3.5-5.1) mmol/L Chloride 106 (98-107) mmol/L Carbon Dioxide 23.8 (21.0-32.0) mmol/L BUN 20 H (7.0-18.0) mg/dL Creatinine 2.0 H (0.8-1.3) mg/dL Est Cr Clr Drug Dosing TNP Estimated GFR (MDRD) 38.3 ml/min Glucose 128 H (74-106) mg/dL POC Glucose (60-110) mg/dL Calcium 8.9 (8.5-10.1) mg/dL Phosphorus (2.6-4.7) mg/dL Magnesium (1.8-2.4) mg/dL Total Bilirubin 1.5 H (0.2-1.0) mg/dL AST 21 (15-37) IU/L ALT 21 (14-63) IU/L Alkaline Phosphatase 60 (46-116) U/L Troponin I (0.000-0.056) ng/mL Total Protein 6.7 (6.4-8.2) g/dL Albumin 3.3 L (3.4-5.0) g/dL Globulin 3.4 (2.6-4.0) g/dL Albumin/Globulin Ratio 1.0 (0.9-1.6) TSH 3rd Generation (0.36-3.74) uIU/mL Urine Color Urine Appearance Urine pH (5.0-8.0) Ur Specific [place] (1.001-1.035) Urine Protein (NEGATIVE) mg/dL Urine Glucose (UA) (NEGATIVE) mg/dL Urine Ketones (NEGATIVE) mg/dL Urine Occult Blood (NEGATIVE) Urine Nitrite (NEGATIVE) Urine Bilirubin (NEGATIVE) Urine Urobilinogen (<2.0) EU/dL Ur Leukocyte Esterase (NEGATIVE) Urine RBC (0-2/HPF) Urine WBC (0-5/HPF) Ur Epithelial Cells (NONE-FEW) Urine Bacteria (NEGATIVE) Urine Mucus (NONE-MOD) Ethyl Alcohol mg/dL SARS-CoV-2 RNA (TEA) (NEGATIVE) Result Diagrams: 12/16/20 09:30 12/16/20 09:30 Sepsis Event Note - Evaluation Sepsis Screening Result: No Definite Risk - Focused Exam Vital Signs: Vital Signs Temp Pulse Pulse Resp BP BP Pulse Ox 12/16/20 09:07 36.5 C 81 16 142/71 H 95 12/16/20 06:13 159/73 H 12/16/20 06:10 36.6 C 80 16 152/84 H 97 12/16/20 05:22 89 18 134/77 94 L 12/16/20 04:20 88 121/67 12/16/20 02:55 36.4 C 101 H 18 136/69 96 12/16/20 02:15 36.3 C 109 H 18 137/70 94 L 12/16/20 01:30 92 18 159/72 H 95 12/16/20 00:15 36.6 C 89 14 165/73 H 95 - Problem List (1) NSTEMI (non-ST elevated myocardial infarction) SNOMED Code(s): 06680215 ICD Code: I21.4 - NON-ST ELEVATION (NSTEMI) MYOCARDIAL INFARCTION Status: Acute Current Visit: No (2) Atrial fibrillation with RVR SNOMED Code(s): 392514733170644 ICD Code: I48.91 - UNSPECIFIED ATRIAL FIBRILLATION Status: Acute Current Visit: Yes (3) Dizziness SNOMED Code(s): 301076798, 428670687 ICD Code: R42 - DIZZINESS AND GIDDINESS Status: Acute Current Visit: Yes (4) Chronic kidney disease SNOMED Code(s): 263518547 ICD Code: N18.9 - CHRONIC KIDNEY DISEASE, UNSPECIFIED Status: Acute Current Visit: No Problem List Initiated/Reviewed/Updated: Yes Orders Last 24hrs: Active Orders 24 hr Category Date Time Status Admission Status [Patient Status] [ADT] Stat ADT 12/16/20 05:35 Active Antiembolic Devices [RC] PER UNIT ROUTINE Care 12/16/20 07:07 Active Blood Glucose Check, Bedside [RC] ONETIME Care 12/16/20 00:32 Active Blood Glucose Check, Bedside [RC] TIDAC Care 12/16/20 07:09 Active EKG 12 Lead [EKG Documentation Completion] [RC] STAT Care 12/16/20 11:34 Active Oxygen Therapy [RC] PRN Care 12/16/20 07:06 Active Telemetry Monitoring [Cardiac Monitoring] [RC] . Care 12/16/20 05:56 Active DIRECTED Telemetry Monitoring [Cardiac Monitoring] [RC] . Care 12/16/20 07:08 Active DIRECTED Up ad Denise [RC] ASDIRECTED Care 12/16/20 07:06 Active VTE/DVT Education [RC] PER UNIT ROUTINE Care 12/16/20 07:06 Active Vital Signs [RC] Q4H Care 12/16/20 07:06 Active [place] Diet [DIET] Diet 12/16/20 Breakfast Active CBC WITH AUTO DIFF [HEME] AM Lab 12/17/20 05:11 Ordered COMPREHENSIVE METABOLIC PN,CMP [CHEM] AM Lab 12/17/20 05:11 Ordered MAGNESIUM [CHEM] AM Lab 12/17/20 05:11 Ordered PHOSPHORUS [CHEM] AM Lab 12/17/20 05:11 Ordered PTT,PARTIAL THROMBOPLSTIN TIME [COAG] Q6H Lab 12/16/20 15:15 Ordered PTT,PARTIAL THROMBOPLSTIN TIME [COAG] Q6H Lab 12/16/20 21:15 Ordered PTT,PARTIAL THROMBOPLSTIN TIME [COAG] Q6H Lab 12/17/20 03:15 Ordered PTT,PARTIAL THROMBOPLSTIN TIME [COAG] Q6H Lab 12/17/20 09:15 Ordered PTT,PARTIAL THROMBOPLSTIN TIME [COAG] Q6H Lab 12/17/20 15:15 Ordered PTT,PARTIAL THROMBOPLSTIN TIME [COAG] Q6H Lab 12/17/20 21:15 Ordered TROPONIN I [CHEM] Q3H Lab 12/16/20 11:12 Received Acetaminophen [TylenoL] Med 12/16/20 07:06 Active 650 mg PO Q4H PRN Dextrose 50% in Water Med 12/16/20 07:09 Active 50 ml IV ASDIRECTED PRN Glucagon,Human Recombinant [GlucaGen] Med 12/16/20 07:09 Active 1 mg IM ASDIRECTED PRN Heparin Sodium/0.45% NaCl [Heparin 25,000 Units in 1/2 Med 12/16/20 09:15 Active NS 500 ML] 500 ml IV TITRATE Insulin Aspart [NovoLOG] Med 12/16/20 07:30 Active See Protocol SUBCUT TIDAC Sodium Chloride 0.9% [Saline Flush] Med 12/16/20 00:20 Active 10 ml FLUSH ASDIRECTED PRN Sodium Chloride 0.9% [Saline Flush] Med 12/16/20 00:20 Active 2.5 ml FLUSH ASDIRECTED PRN Saline Lock Insert [OM.PC] Stat Oth 12/16/20 00:20 Ordered Sequential Compression Device [OM.PC] Per Unit Routine Oth 12/16/20 07:07 Ordered Code Status [Resuscitation Status] Routine Resus Stat 12/16/20 10:31 Ordered Medication Orders Acetaminophen (Tylenol) 650 mg PO Q4H PRN PRN Reason: Pain (Mild 1-3)/fever Dextrose/Water (Dextrose 50% In Water) 50 ml IV ASDIRECTED PRN PRN Reason: Hypoglycemia Glucagon (Glucagen) 1 mg IM ASDIRECTED PRN PRN Reason: Hypoglycemia Heparin Sodium/Sodium Chloride (Heparin 25,000 Units In 1/2 Ns 500 Ml) 500 mls @ 14.4 mls/hr IV TITRATE [place]; Protocol Last Admin: 12/16/20 09:44 Dose: 12 units/kg/hr, 14.4 mls/hr Documented by: MALIHA Cosigned by: [id number] Insulin Aspart (Novolog) 0 unit SUBCUT TIDAC [place]; Protocol Last Admin: 12/16/20 11:30 Dose: Not Given Documented by: Admin: 12/16/20 09:43 Dose: Not Given Documented by: MALIHA Sodium Chloride (Saline Flush) 10 ml FLUSH ASDIRECTED PRN PRN Reason: Keep Vein Open Last Admin: 12/16/20 00:26 Dose: 10 ml Documented by: ODILIA Sodium Chloride (Saline Flush) 2.5 ml FLUSH ASDIRECTED PRN PRN Reason: Keep Vein Open Last Admin: 12/16/20 00:26 Dose: 2.5 ml Documented by: ODILIA Assessment/Plan Comment:: Assessment: 1. NSTEMI. 2. Atrial fibrillation, rate controlled. 3. Diabetes mellitus type 2. 4. Past medical history of HTN and CKD. Plan: 1. Patient's troponins trended and went from 0.062, 0.190 and then 0.234. EKG showed sinus rhythms with T-wave inversions in lead II and no acute ST changes. Patient was started on heparin drip. [facility] in [place] was contacted for transfer due to NSTEMI and need for urgent cardiac evaluation. ER provider Dr. Mathias was contacted and accepted patient for transfer. Patient transferred in stable condition via flight.
--- NOTE | 2020-12-16 12:17 | PCM.EKG ---
#1 Interpretation EKG Date: 12/16/20 Time: 11:51 Rhythm: NSR Rate (Beats/Min): 73 [place]: LAD-Left [place] Deviation P-Wave: Present QRS: Normal ST-T: Normal QT: Normal EKG Interpretation Comments: T-wave inversion in lead II, III and aVF.
[2020-12-16] MEDS ORDERED: Aspirin 325 MG Tab.EC PO ONE (12:26)
== END 2020-12-16 12:43 ==
LOC: MW.ED 00:09 → MW.MS 05:35
PROVIDERS: ADMIT Student in an Organized Health Care Education/Training Program; ATTEND Student in an Organized Health Care Education/Training Program
DX: I48.91 Unspecified atrial fibrillation (principal); I21.4 Non-ST elevation (NSTEMI) myocardial infarction; E11.22 Type 2 diabetes mellitus with diabetic chronic kidney disease; I12.9 Hypertensive chronic kidney disease with stage 1 through stage 4 chronic kidney disease, or unspecified chronic kidney disease; N18.9 Chronic kidney disease, unspecified; Z20.822 Contact with and (suspected) exposure to COVID-19
CPT/HCPCS: 36415; 71045; 80053; 80179; 81001; 82962; 83735; 84100; 84443; 84484; 85025; 85610; 85730; 93005; 96365; 99285; A9270; J1644; J3475; J3490; J7030; U0002; 96367; 96376; 99291; G0378

== ENCOUNTER 2021-01-31 07:10 | Emergency (ER) | payer MEDICAID, MEDICARE ==
[2021-01-31] MEDS ORDERED: Diltiazem 180 MG Cap.CD PO ONE ×2 (07:41→08:00)
--- NOTE | 2021-01-31 08:07 | EDM.PDOC ---
ED HPI GENERAL MEDICAL PROBLEM - General Chief Complaint: General Stated Complaint: EMS Time Seen by Provider: 01/31/21 07:13 Source of Information: Reports: Patient History Limitations: Reports: No Limitations - History of Present Illness INITIAL COMMENTS - FREE TEXT/NARRATIVE: Patient is an 89-year-old male who presents today for unclear reasons. Patient from previous notes states that he speaks Latvian we try to use a Latvian diplomatic interpreter the patient responds in [place]or[place]. Patient even when using a Latvian diplomatic interpreter or speaking to the patient [place] states that he does have some problems with motion states that he felt unsteady and dizzy and has pretty much only thing he tells us he does not states that he has any pain anywhere or hit his head. We tried to contact the patient's family we called the number that was in the chart [phone] blood pressure not at home states that she was a [id number] and that she did not know what was going on and could not talk t hat she was driving but will have her sister give us a call we have not received a call from the sister who will take his life. - Related Data Allergies Allergy/AdvReac Type Severity Reaction Status Date / Time No Known Allergies Allergy Unverified 01/31/21 07:16 Home Meds: Home Meds . [Unable to Verify Home Med List] 12/16/20 [History] Past Medical History HEENT History: Reports: None Cardiovascular History: Reports: Hypertension Endocrine/Metabolic History: Reports: Diabetes, Type II Hematologic History: Reports: Anemia - Infectious Disease History Infectious Disease History: Reports: None - Past Surgical History Cardiovascular Surgical History: Reports: None Social & Family History - Family History Family Medical History: No Pertinent Family History - Tobacco Use Tobacco Use Status *Q: Unknown Ever Used Tobacco - Caffeine Use Caffeine Use: Reports: Other Caffeine Use Comment: unknown - Recreational Drug Use Recreational Drug Use: No ED ROS GENERAL - Review of Systems Review Of Systems: Unable To Obtain Reason Not Obtained: pt mental status ED EXAM, GENERAL - Physical Exam Exam: See Below Exam Limited By: Altered Mental Status General Appearance: Alert, WD/WN Eye Exam: Bilateral Eye: EOMI, PERRL Respiratory/Chest: No Respiratory Distress, Lungs Clear, Normal Breath Sounds Cardiovascular: Normal Peripheral Pulses, Regular Rate, Rhythm GI/Abdominal: Normal Bowel Sounds, Soft, Non-Tender Extremities: Normal Range of Motion Neurological: Alert, Other (A&Ox1) #1 Interpretation EKG Date: 01/31/21 Time: 07:58 Rhythm: NSR ST-T: Normal Course - Vital Signs Last Recorded V/S: Last Vital Signs Temp 98.0 F 01/31/21 07:16 Pulse 74 01/31/21 11:12 Resp 17 01/31/21 11:12 BP 132/82 01/31/21 11:12 Pulse Ox 97 01/31/21 11:12 - Orders/Labs/Meds Orders: Active Orders 24 hr Category Date Time Status EKG Documentation Completion [RC] STAT Care 01/31/21 07:38 Active Labs: Laboratory Tests 01/31/21 01/31/21 01/31/21 Range/Units 07:50 07:50 10:57 WBC 6.22 (4.0-11.0) K/uL RBC 4.50 (4.50-5.90) M/uL Hgb 10.7 L (13.0-17.0) g/dL Hct 33.3 L (38.0-50.0) % MCV 74.0 L (80.0-98.0) fL MCH 23.8 L (27.0-32.0) pg MCHC 32.1 (31.0-37.0) g/dL RDW Std Deviation 37.4 (28.0-62.0) fl RDW Coeff of Nadia 14 (11.0-15.0) % Plt Count 262 (150-400) K/uL MPV 9.70 (7.40-12.00) fL Neut % (Auto) 62.4 (48.0-80.0) % Lymph % (Auto) 26.2 (16.0-40.0) % [place] % (Auto) 9.0 (0.0-15.0) % Eos % (Auto) 2.1 (0.0-7.0) % Baso % (Auto) 0.3 (0.0-1.5) % Neut # (Auto) 3.9 (1.4-5.7) K/uL Lymph # (Auto) 1.6 (0.6-2.4) K/uL [place] # (Auto) 0.6 (0.0-0.8) K/uL Eos # (Auto) 0.1 (0.0-0.7) K/uL Baso # (Auto) 0.0 (0.0-0.1) K/uL Nucleated RBC % 0.0 /100WBC Nucleated RBCs # 0 K/uL Sodium 138 (136-148) mmol/L Potassium 4.2 (3.5-5.1) mmol/L Chloride 103 (98-107) mmol/L Carbon Dioxide 27.9 (21.0-32.0) mmol/L BUN 29 H (7.0-18.0) mg/dL Creatinine 2.7 H (0.8-1.3) mg/dL Est Cr Clr Drug Dosing 17.34 mL/min Estimated GFR (MDRD) 27.1 ml/min Glucose 343 H (74-106) mg/dL Calcium 8.6 (8.5-10.1) mg/dL Phosphorus 4.4 (2.6-4.7) mg/dL Magnesium 1.9 (1.8-2.4) mg/dL Total Bilirubin 0.9 (0.2-1.0) mg/dL AST 8 L (15-37) IU/L ALT 17 (14-63) IU/L Alkaline Phosphatase 78 (46-116) U/L Creatine Kinase 62 70 (26-308) U/L Troponin I 0.085 H* 0.077 H* (0.000-0.056) ng/mL Total Protein 6.8 (6.4-8.2) g/dL Albumin 3.1 L (3.4-5.0) g/dL Globulin 3.7 (2.6-4.0) g/dL Albumin/Globulin Ratio 0.8 L (0.9-1.6) Lipase 55 L (73-393) U/L Meds: Medications Discontinued Medications Generic Name Dose Route Start Last Admin Trade Name Freq PRN Reason Stop Dose Admin Clonidine HCl 0.2 mg 01/31/21 08:55 01/31/21 09:04 Clonidine 0.1 Mg Tab PO 01/31/21 08:56 0.2 mg ONETIME ONE Administration Diltiazem HCl 180 mg 01/31/21 08:00 01/31/21 07:59 Diltiazem 180 Mg Cap.Cd PO 01/31/21 08:01 180 mg ONETIME ONE Administration - Re-Assessments/Exams Free Text/Narrative Re-Assessment/Exam: 01/31/21 13:26 We were able to speak to the patient's [id number] the patient's still currently at work this is lost a great come pick the patient up today. Patient hypoxic on his back in November. Downtrending x2 today in the ER. Patient currently has no complaints blood pressure has been stable as well. Recommend patient resume home medications. Departure - Departure Time of Disposition: 13:27 Disposition: Home, Self-Care 01 Condition: Good Clinical Impression: Dizziness Forms: ED Department Discharge Additional Instructions: The following information is given to patients seen in the emergency department who are being discharged to home. This information is to outline your options for follow-up care. We provide all patients seen in our emergency department with a follow-up referral. The need for follow-up, as well as the timing and circumstances, are variable depending upon the specifics of your emergency department visit. If you don't have a primary care physician on staff, we will provide you with a referral. We always advise you to contact your personal physician following an emergency department visit to inform them of the circumstance of the visit and for follow-up with them and/or the need for any referrals to a consulting specialist. The emergency department will also refer you to a specialist when appropriate. This referral assures that you have the opportunity for follow-up care with a specialist. All of these measure are taken in an effort to provide you with optimal care, which includes your follow-up. Under all circumstances we always encourage you to contact your private phys ician who remains a resource for coordinating your care. When calling for follow-up care, please make the office aware that this follow-up is from your recent emergency room visit. If for any reason you are refused follow-up, please contact the [facility] Emergency Department at and asked to speak to the emergency department charge nurse. Please follow up with your primary care physician. If you do not have a primary care physician, see below: [facility] [address] [place] [id number] [facility] [address] [place] [id number] You are seen today for dizziness. Dizziness seems to be at his baseline as is improved here. We did labs and imaging that came back in his baseline. Your troponins were elevated but they were elevated in November when you had your possible heart attack had to be sent to [place]. Your levels are downtrending but if you have any chest pain or other concerns please come to the ED. Sepsis Event Note (ED) - Evaluation Sepsis Screening Result: No Definite Risk - Focused Exam Vital Signs: Vital Signs Temp Pulse Resp BP BP BP Pulse Ox 01/31/21 11:12 74 17 132/82 97 01/31/21 10:42 80 16 116/69 98 01/31/21 10:13 87 17 120/69 99 01/31/21 09:42 84 17 189/70 H 100 01/31/21 09:12 93 18 213/112 H 99 01/31/21 09:04 204/118 H 01/31/21 08:13 17 98 01/31/21 07:42 91 18 193/120 H 98 01/31/21 07:16 98.0 F 99 20 189/119 H 98 01/31/21 07:14 97.9 F 98 16 199/119 H 98 - My Orders Last 24 Hours: My Active Orders 01/31/21 07:38 EKG Documentation Completion [RC] STAT - Assessment/Plan Last 24 Hours: My Active Orders 01/31/21 07:38 EKG Documentation Completion [RC] STAT Plan: Patient is an 89-year-old male who presents today for possible vertigo. Patient is difficult to obtain history from and we cannot get any of the patient's family members on the phone to get a history of to what happened. Will obtain labs EKG and continue to try to contact the family.
[2021-01-31 08:23] LABS: CARBON DIOXIDE,CO2 27.9 mmol/L (21.0-32.0); POTASSIUM,K 4.2 mmol/L (3.5-5.1)
--- NOTE | 2021-01-31 08:34 | CR ---
INDICATION: Syncope TECHNIQUE: Chest 1 views COMPARISON: 12/16/2020 FINDINGS: Cardiovascular and mediastinum: Heart size and vasculature are normal in caliber and appearance. Lungs and pleural spaces: Lungs are clear. No sign of infiltrate or mass. No sign of pleural effusion. No pneumothorax. Bones and soft tissues: No significant findings. IMPRESSION: No acute findings and no significant changes from the prior exam. Dictated by Freddy Hickey MD @ Jan 31 2021 8:32AM Signed by Dr. Freddy Hickey @ Jan 31 2021 8:33AM
[2021-01-31] MEDS ORDERED: cloNIDine 0.1 MG Tab PO ONE (08:55)
== END 2021-01-31 14:28 | disposition home or self-care (01) ==
LOC: MW.ED 07:10
DX: R42 Dizziness and giddiness (principal); I10 Essential (primary) hypertension; E11.9 Type 2 diabetes mellitus without complications
CPT/HCPCS: 36415; 71045; 80053; 82550; 83690; 83735; 84100; 84484; 85025; 93005; 99284; A9270; 93010; 99283

== ENCOUNTER 2021-02-10 00:23 | Inpatient (IN) | payer MEDICARE, MEDICAID ==
[2021-02-10] MEDS ORDERED: Sodium Chloride 0.9% 2.5 ML Syringe FLUSH PRN (00:46)
[2021-02-10] MEDS ORDERED: Sodium Chloride 0.9% 10 ML Syringe FLUSH PRN (00:46)
[2021-02-10] MEDS ORDERED: Sodium Chloride 0.9% 1,000 ML IV ONE (00:47)
--- NOTE | 2021-02-10 00:48 | EDM.PDOC ---
ED HPI GENERAL MEDICAL PROBLEM - General Stated Complaint: WEAKNESS Time Seen by Provider: 02/10/21 00:24 - History of Present Illness INITIAL COMMENTS - FREE TEXT/NARRATIVE: History of present illness: [] The patient is a difficult historian. He claims to speak [place] and has done so in the past. 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 He says he feels so-so. He moves his hands back and forth indicate he feels so-so. When asked if he has pain he put his hand in his chest. Review of systems: As per history of present illness and below otherwise all systems reviewed and negative. Past medical history: As per history of present illness and as reviewed below otherwise noncontributory. Surgical history: As per history of present illness and as reviewed below otherwise noncontributory. Social history: No reported history of drug or alcohol abuse. Family history: As per history of present illness and as reviewed below otherwise noncontributory. Physical exam: Constitutional - well developed, well-nourished and in no acute distress HEENT - normocephalic, no evidence of trauma - external nose and mouth normal - no mass in neck and no JVD - mucosae moist EYES - full EOM, PERRL, no icterus - no evidence of inflammation, injection, or drainage Respiratory - no respiratory distress, equal bilateral expansion, lungs clear to auscultation and no abnormal lung sounds Cardiovascular - Regular Rhythm with S1 and S2 appreciated and no murmur, gallop or rub. GI - abdomen soft without distension or organomegaly - normal bowel sounds - no guard or rebound Musculoskeletal no gross deformity of long bones or joints - no tenderness, swelling or edema Neurologic - Alert and oriented times four - CN II-XII grossly intact - motor sensory and coordination symmetrically normal Psychiatric - appropriate mood and affect with normal thought content Hematologic - No petechiae or purpura - mucosa appropriate color and sclera not pale - normal nail bed color and refill Integument - no rash or evidence of trauma - normal turgor Diagnostics: [] Therapeutics: [] Impression: [] Plan: [] Definitive disposition and diagnosis as appropriate pending reevaluation and review of above. - Related Data Allergies Allergy/AdvReac Type Severity Reaction Status Date / Time No Known Allergies Allergy Unverified 02/10/21 00:55 Home Meds: Home Meds . [Unable to Verify Home Med List] 12/16/20 [History] Past Medical History HEENT History: Reports: None Cardiovascular History: Reports: Hypertension Endocrine/Metabolic History: Reports: Diabetes, Type II Hematologic History: Reports: Anemia - Infectious Disease History Infectious Disease History: Reports: None - Past Surgical History Cardiovascular Surgical History: Reports: None Social & Family History - Family History Family Medical History: No Pertinent Family History - Caffeine Use Caffeine Use: Reports: Other Caffeine Use Comment: unknown ED ROS GENERAL - Review of Systems Review Of Systems: Unable To Obtain Reason Not Obtained: Patient's failure to answer questions ED EXAM, GENERAL - Physical Exam Exam: See Below Free Text/Narrative:: Physical exam is in the HPI #1 Interpretation EKG Interpretation Comments: EKG was done at 00 44 hours and interpreted by me. Atrial fibrillation with a heart rate of 98. 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 ST elevation in the precordium. Prolonged QT interval. Compared to 01/31/2021 no change of significance. Impression no obvious injury Course - Vital Signs Text/Narrative:: 0121 hrs. the patient's blood sugars 454. He is not acidotic there is no ketones in his urine. Plan continue the IV bolus and give 10 of insulin. At the end of the first bolus we will recheck his sugar and make a decision about further steps. Troponin is also 0.086. Plan to recheck that at 3 hours to help me make a disposition. Sugar came down dramatically. The true nature of his hypernatremia and elevated BUN and creatinine were revealed with a repeat of the electrolytes. The troponin did not rise. Case was discussed with Dr. Boyle and because this patient has significant hypertension that has had to be addressed and has no clear understanding of his medication regimen I admitted the patient for further evaluation and disposition. He is placed on admission as an observation patient Last Recorded V/S: Last Vital Signs Temp 36.1 C 02/10/21 04:12 Pulse 88 02/10/21 04:12 Resp 18 02/10/21 04:12 BP 194/101 H 02/10/21 04:12 Pulse Ox 98 02/10/21 04:12 - Orders/Labs/Meds Orders: Active Orders 24 hr Category Date Time Status EKG Documentation Completion [RC] AM Care 02/10/21 00:46 Active Dextrose 50% in Water Med 02/10/21 01:19 Active 50 ml IV ASDIRECTED PRN Glucagon,Human Recombinant [GlucaGen] Med 02/10/21 01:19 Active 1 mg IM ASDIRECTED PRN Sodium Chloride 0.9% [Saline Flush] Med 02/10/21 00:46 Active 10 ml FLUSH ASDIRECTED PRN Sodium Chloride 0.9% [Saline Flush] Med 02/10/21 00:46 Active 2.5 ml FLUSH ASDIRECTED PRN Saline Lock Insert [OM.PC] Stat Oth 02/10/21 00:46 Ordered Medication Orders Dextrose/Water (50% Dextrose In Water 50 Ml Syringe) 50 ml IV ASDIRECTED PRN PRN Reason: Hypoglycemia Glucagon (Glucagon,Human Recombinant 1 Mg Vial) 1 mg IM ASDIRECTED PRN PRN Reason: Hypoglycemia Sodium Chloride (Sodium Chloride 0.9% 10 Ml Syringe) 10 ml FLUSH ASDIRECTED PRN PRN Reason: Keep Vein Open Last Admin: 02/10/21 01:01 Dose: 10 ml Documented by: KAM Sodium Chloride (Sodium Chloride 0.9% 2.5 Ml Syringe) 2.5 ml FLUSH ASDIRECTED PRN PRN Reason: Keep Vein Open Last Admin: 02/10/21 01:02 Dose: 2.5 ml Documented by: KAM Labs: Laboratory Tests 02/10/21 02/10/21 02/10/21 Range/Units 00:40 00:40 00:40 WBC 7.47 (4.0-11.0) K/uL RBC 4.91 (4.50-5.90) M/uL Hgb 11.6 L (13.0-17.0) g/dL Hct 34.7 L (38.0-50.0) % MCV 70.7 L (80.0-98.0) fL MCH 23.6 L (27.0-32.0) pg MCHC 33.4 (31.0-37.0) g/dL RDW Std Deviation 33.9 (28.0-62.0) fl RDW Coeff of Nadia 14 (11.0-15.0) % Plt Count 307 (150-400) K/uL MPV 10.00 (7.40-12.00) fL Neut % (Auto) 57.9 (48.0-80.0) % Lymph % (Auto) 31.9 (16.0-40.0) % [place] % (Auto) 8.3 (0.0-15.0) % Eos % (Auto) 1.6 (0.0-7.0) % Baso % (Auto) 0.3 (0.0-1.5) % Neut # (Auto) 4.3 (1.4-5.7) K/uL Lymph # (Auto) 2.4 (0.6-2.4) K/uL [place] # (Auto) 0.6 (0.0-0.8) K/uL Eos # (Auto) 0.1 (0.0-0.7) K/uL Baso # (Auto) 0.0 (0.0-0.1) K/uL INR 1.00 Sodium (136-148) mmol/L Potassium (3.5-5.1) mmol/L Chloride (98-107) mmol/L Carbon Dioxide (21.0-32.0) mmol/L BUN (7.0-18.0) mg/dL Creatinine (0.8-1.3) mg/dL Est Cr Clr Drug Dosing Estimated GFR (MDRD) ml/min Glucose (74-106) mg/dL POC Glucose (70-99) mg/dL Hemoglobin A1c (4.5 - 6.2) % Calcium (8.5-10.1) mg/dL Magnesium (1.8-2.4) mg/dL Total Bilirubin (0.2-1.0) mg/dL AST (15-37) IU/L ALT (14-63) IU/L Alkaline Phosphatase (46-116) U/L Troponin I (0.000-0.056) ng/mL Total Protein (6.4-8.2) g/dL Albumin (3.4-5.0) g/dL Globulin (2.6-4.0) g/dL Albumin/Globulin Ratio (0.9-1.6) Urine Color YELLOW Urine Appearance CLEAR Urine pH 6.0 (5.0-8.0) Ur Specific Foss 1.020 (1.001-1.035) Urine Protein 100 H (NEGATIVE) mg/dL Urine Glucose (UA) 500 H (NEGATIVE) mg/dL Urine Ketones NEGATIVE (NEGATIVE) mg/dL Urine Occult Blood TRACE-INTACT H (NEGATIVE) Urine Nitrite NEGATIVE (NEGATIVE) Urine Bilirubin NEGATIVE (NEGATIVE) Urine Urobilinogen 0.2 (<2.0) EU/dL Ur Leukocyte Esterase NEGATIVE (NEGATIVE) Urine RBC 0-1 (0-2/HPF) Urine WBC 0-1 (0-5/HPF) Ur Epithelial Cells FEW (NONE-FEW) Amorphous Sediment LIGHT (NEGATIVE) Urine Bacteria 1+ H (NEGATIVE) Urine Mucus LIGHT (NONE-MOD) Ethyl Alcohol mg/dL SARS-CoV-2 RNA (TEA) (NEGATIVE) 02/10/21 02/10/21 02/10/21 Range/Units 00:40 00:40 00:40 WBC (4.0-11.0) K/uL RBC (4.50-5.90) M/uL Hgb (13.0-17.0) g/dL Hct (38.0-50.0) % MCV (80.0-98.0) fL MCH (27.0-32.0) pg MCHC (31.0-37.0) g/dL RDW Std Deviation (28.0-62.0) fl RDW Coeff of Nadia (11.0-15.0) % Plt Count (150-400) K/uL MPV (7.40-12.00) fL Neut % (Auto) (48.0-80.0) % Lymph % (Auto) (16.0-40.0) % [place] % (Auto) (0.0-15.0) % Eos % (Auto) (0.0-7.0) % Baso % (Auto) (0.0-1.5) % Neut # (Auto) (1.4-5.7) K/uL Lymph # (Auto) (0.6-2.4) K/uL [place] # (Auto) (0.0-0.8) K/uL Eos # (Auto) (0.0-0.7) K/uL Baso # (Auto) (0.0-0.1) K/uL INR Sodium 143 (136-148) mmol/L Potassium 5.1 (3.5-5.1) mmol/L Chloride 106 (98-107) mmol/L Carbon Dioxide 29.2 (21.0-32.0) mmol/L BUN 32 H (7.0-18.0) mg/dL Creatinine 3.1 H (0.8-1.3) mg/dL Est Cr Clr Drug Dosing TNP Estimated GFR (MDRD) 23.1 ml/min Glucose 454 H (74-106) mg/dL POC Glucose (70-99) mg/dL Hemoglobin A1c (4.5 - 6.2) % Calcium 9.5 (8.5-10.1) mg/dL Magnesium 2.3 (1.8-2.4) mg/dL Total Bilirubin 0.8 (0.2-1.0) mg/dL AST 16 (15-37) IU/L ALT 17 (14-63) IU/L Alkaline Phosphatase 89 (46-116) U/L Troponin I 0.086 H* (0.000-0.056) ng/mL Total Protein 7.5 (6.4-8.2) g/dL Albumin 3.6 (3.4-5.0) g/dL Globulin 3.9 (2.6-4.0) g/dL Albumin/Globulin Ratio 0.9 (0.9-1.6) Urine Color Urine Appearance Urine pH (5.0-8.0) Ur Specific Foss (1.001-1.035) Urine Protein (NEGATIVE) mg/dL Urine Glucose (UA) (NEGATIVE) mg/dL Urine Ketones (NEGATIVE) mg/dL Urine Occult Blood (NEGATIVE) Urine Nitrite (NEGATIVE) Urine Bilirubin (NEGATIVE) Urine Urobilinogen (<2.0) EU/dL Ur Leukocyte Esterase (NEGATIVE) Urine RBC (0-2/HPF) Urine WBC (0-5/HPF) Ur Epithelial Cells (NONE-FEW) Amorphous Sediment (NEGATIVE) Urine Bacteria (NEGATIVE) Urine Mucus (NONE-MOD) Ethyl Alcohol 3 mg/dL SARS-CoV-2 RNA (TEA) (NEGATIVE) 02/10/21 02/10/21 02/10/21 Range/Units 00:40 01:30 02:30 WBC (4.0-11.0) K/uL RBC (4.50-5.90) M/uL Hgb (13.0-17.0) g/dL Hct (38.0-50.0) % MCV (80.0-98.0) fL MCH (27.0-32.0) pg MCHC (31.0-37.0) g/dL RDW Std Deviation (28.0-62.0) fl RDW Coeff of Nadia (11.0-15.0) % Plt Count (150-400) K/uL MPV (7.40-12.00) fL Neut % (Auto) (48.0-80.0) % Lymph % (Auto) (16.0-40.0) % [place] % (Auto) (0.0-15.0) % Eos % (Auto) (0.0-7.0) % Baso % (Auto) (0.0-1.5) % Neut # (Auto) (1.4-5.7) K/uL Lymph # (Auto) (0.6-2.4) K/uL [place] # (Auto) (0.0-0.8) K/uL Eos # (Auto) (0.0-0.7) K/uL Baso # (Auto) (0.0-0.1) K/uL INR Sodium 149 H (136-148) mmol/L Potassium 4.0 (3.5-5.1) mmol/L Chloride 111 H (98-107) mmol/L Carbon Dioxide 28.6 (21.0-32.0) mmol/L BUN 31 H (7.0-18.0) mg/dL Creatinine 3.0 H (0.8-1.3) mg/dL Est Cr Clr Drug Dosing TNP Estimated GFR (MDRD) 24.0 ml/min Glucose 185 H (74-106) mg/dL POC Glucose (70-99) mg/dL Hemoglobin A1c 8.1 H (4.5 - 6.2) % Calcium 9.8 (8.5-10.1) mg/dL Magnesium (1.8-2.4) mg/dL Total Bilirubin (0.2-1.0) mg/dL AST (15-37) IU/L ALT (14-63) IU/L Alkaline Phosphatase (46-116) U/L Troponin I (0.000-0.056) ng/mL Total Protein (6.4-8.2) g/dL Albumin (3.4-5.0) g/dL Globulin (2.6-4.0) g/dL Albumin/Globulin Ratio (0.9-1.6) Urine Color Urine Appearance Urine pH (5.0-8.0) Ur Specific Foss (1.001-1.035) Urine Protein (NEGATIVE) mg/dL Urine Glucose (UA) (NEGATIVE) mg/dL Urine Ketones (NEGATIVE) mg/dL Urine Occult Blood (NEGATIVE) Urine Nitrite (NEGATIVE) Urine Bilirubin (NEGATIVE) Urine Urobilinogen (<2.0) EU/dL Ur Leukocyte Esterase (NEGATIVE) Urine RBC (0-2/HPF) Urine WBC (0-5/HPF) Ur Epithelial Cells (NONE-FEW) Amorphous Sediment (NEGATIVE) Urine Bacteria (NEGATIVE) Urine Mucus (NONE-MOD) Ethyl Alcohol mg/dL SARS-CoV-2 RNA (TEA) NEGATIVE (NEGATIVE) 02/10/21 02/10/21 Range/Units 02:30 02:40 WBC (4.0-11.0) K/uL RBC (4.50-5.90) M/uL Hgb (13.0-17.0) g/dL Hct (38.0-50.0) % MCV (80.0-98.0) fL MCH (27.0-32.0) pg MCHC (31.0-37.0) g/dL RDW Std Deviation (28.0-62.0) fl RDW Coeff of Nadia (11.0-15.0) % Plt Count (150-400) K/uL MPV (7.40-12.00) fL Neut % (Auto) (48.0-80.0) % Lymph % (Auto) (16.0-40.0) % [place] % (Auto) (0.0-15.0) % Eos % (Auto) (0.0-7.0) % Baso % (Auto) (0.0-1.5) % Neut # (Auto) (1.4-5.7) K/uL Lymph # (Auto) (0.6-2.4) K/uL [place] # (Auto) (0.0-0.8) K/uL Eos # (Auto) (0.0-0.7) K/uL Baso # (Auto) (0.0-0.1) K/uL INR Sodium (136-148) mmol/L Potassium (3.5-5.1) mmol/L Chloride (98-107) mmol/L Carbon Dioxide (21.0-32.0) mmol/L BUN (7.0-18.0) mg/dL Creatinine (0.8-1.3) mg/dL Est Cr Clr Drug Dosing Estimated GFR (MDRD) ml/min Glucose (74-106) mg/dL POC Glucose 123 H (70-99) mg/dL Hemoglobin A1c (4.5 - 6.2) % Calcium (8.5-10.1) mg/dL Magnesium (1.8-2.4) mg/dL Total Bilirubin (0.2-1.0) mg/dL AST (15-37) IU/L ALT (14-63) IU/L Alkaline Phosphatase (46-116) U/L Troponin I 0.085 H* (0.000-0.056) ng/mL Total Protein (6.4-8.2) g/dL Albumin (3.4-5.0) g/dL Globulin (2.6-4.0) g/dL Albumin/Globulin Ratio (0.9-1.6) Urine Color Urine Appearance Urine pH (5.0-8.0) Ur Specific Foss (1.001-1.035) Urine Protein (NEGATIVE) mg/dL Urine Glucose (UA) (NEGATIVE) mg/dL Urine Ketones (NEGATIVE) mg/dL Urine Occult Blood (NEGATIVE) Urine Nitrite (NEGATIVE) Urine Bilirubin (NEGATIVE) Urine Urobilinogen (<2.0) EU/dL Ur Leukocyte Esterase (NEGATIVE) Urine RBC (0-2/HPF) Urine WBC (0-5/HPF) Ur Epithelial Cells (NONE-FEW) Amorphous Sediment (NEGATIVE) Urine Bacteria (NEGATIVE) Urine Mucus (NONE-MOD) Ethyl Alcohol mg/dL SARS-CoV-2 RNA (TEA) (NEGATIVE) Meds: Medications Generic Name Dose Route Start Last Admin Trade Name Freq PRN Reason Stop Dose Admin Dextrose/Water 50 ml 02/10/21 01:19 50% Dextrose In Water 50 Ml Syringe IV ASDIRECTED PRN Hypoglycemia Glucagon 1 mg 02/10/21 01:19 Glucagon,Human Recombinant 1 Mg Vial IM ASDIRECTED PRN Hypoglycemia Sodium Chloride 10 ml 02/10/21 00:46 02/10/21 01:01 Sodium Chloride 0.9% 10 Ml Syringe FLUSH 10 ml ASDIRECTED PRN Administration Keep Vein Open Sodium Chloride 2.5 ml 02/10/21 00:46 02/10/21 01:02 Sodium Chloride 0.9% 2.5 Ml Syringe FLUSH 2.5 ml ASDIRECTED PRN Administration Keep Vein Open Discontinued Medications Generic Name Dose Route Start Last Admin Trade Name Freq PRN Reason Stop Dose Admin Hydralazine HCl 10 mg 02/10/21 01:27 02/10/21 01:34 Hydralazine 20 Mg/Ml Sdv IVPUSH 02/10/21 01:28 10 mg ONETIME ONE Administration Sodium Chloride 1,000 mls @ 1,000 mls/hr 02/10/21 00:47 02/10/21 01:01 Normal Saline IV 02/10/21 01:46 1,000 mls/hr .Bolus ONE Administration Insulin Human Regular 10 unit 02/10/21 01:19 02/10/21 01:27 Insulin Regular, Human 100 Units/Ml 10 Ml Vial IVPUSH 02/10/21 01:20 10 units ONETIME ONE Administration Protocol Departure - Departure Time of Disposition: 04:52 Disposition: Refer to Observation Condition: Good Clinical Impression: Hypertensive emergency, Hyperglycemia, Weakness, RANCHO (acute kidney injury) - Discharge Information Sepsis Event Note (ED) - Focused Exam Vital Signs: Vital Signs Temp Pulse Resp BP Pulse Ox 02/10/21 04:12 36.1 C 88 18 194/101 H 98 02/10/21 02:54 104 H 16 218/88 H 96 02/10/21 01:15 90 18 179/115 H 100 02/10/21 00:25 36.3 C 97 18 243/117 H 95 - My Orders Last 24 Hours: My Active Orders 02/10/21 00:46 EKG Documentation Completion [RC] AM Sodium Chloride 0.9% [Saline Flush] 10 ml FLUSH ASDIRECTED PRN Sodium Chloride 0.9% [Saline Flush] 2.5 ml FLUSH ASDIRECTED PRN Saline Lock Insert [OM.PC] Stat 02/10/21 01:19 Dextrose 50% in Water 50 ml IV ASDIRECTED PRN Glucagon,Human Recombinant [GlucaGen] 1 mg IM ASDIRECTED PRN - Assessment/Plan Last 24 Hours: My Active Orders 02/10/21 00:46 EKG Documentation Completion [RC] AM Sodium Chloride 0.9% [Saline Flush] 10 ml FLUSH ASDIRECTED PRN Sodium Chloride 0.9% [Saline Flush] 2.5 ml FLUSH ASDIRECTED PRN Saline Lock Insert [OM.PC] Stat 02/10/21 01:19 Dextrose 50% in Water 50 ml IV ASDIRECTED PRN Glucagon,Human Recombinant [GlucaGen] 1 mg IM ASDIRECTED PRN
[2021-02-10 01:11] LABS: BLOOD UREA NITROGEN,BUN 32 mg/dL (7.0-18.0); CARBON DIOXIDE,CO2 29.2 mmol/L (21.0-32.0); CHLORIDE,CL 106 mmol/L (98-107); GLUCOSE RANDOM 454 mg/dL (74-106); POTASSIUM,K 5.1 mmol/L (3.5-5.1); SODIUM,NA 143 mmol/L (136-148)
--- NOTE | 2021-02-10 01:12 | CR ---
INDICATION: Chest pain TECHNIQUE: Chest radiograph 1 view COMPARISON: None FINDINGS: Mediastinum: The mediastinum is normal in appearance. The heart silhouette is normal in size and morphology. Lung: Both lungs are unremarkable in appearance. No sign of pleural effusion seen. No pneumothorax is identified. Bone and Soft tissue: Unremarkable for age. IMPRESSION: 1. No acute cardiopulmonary disease is seen. Dictated by: Livan Wiley MD @ 02/10/2021 01:11:06 (Electronically Signed)
[2021-02-10] MEDS ORDERED: 50% Dextrose in Water 50 ML Syringe IV PRN ×3 (01:19→07:50)
[2021-02-10] MEDS ORDERED: Insulin Regular, Human 100 Units/ML 10 ML Vial IVPUSH ONE (01:19)
[2021-02-10] MEDS ORDERED: Glucagon,Human Recombinant 1 MG Vial IM PRN ×3 (01:19→07:50)
[2021-02-10] MEDS ORDERED: hydrALAZINE 20 MG/ML SDV IVPUSH ONE (01:27)
[2021-02-10 03:12] LABS: BLOOD UREA NITROGEN,BUN 31 mg/dL (7.0-18.0); CARBON DIOXIDE,CO2 28.6 mmol/L (21.0-32.0); CHLORIDE,CL 111 mmol/L (98-107); GLUCOSE RANDOM 185 mg/dL (74-106); SODIUM,NA 149 mmol/L (136-148)
[2021-02-10 04:12] LABS: HEMOGLOBIN A1C 8.1 %
[2021-02-10] MEDS ORDERED: cloNIDine 0.1 MG Tab PO ONE (05:55)
--- NOTE | 2021-02-10 06:58 | PCM.HP.2 ---
H&P History of Present Illness - General Date of Service: 02/10/21 Admit Problem/Dx: Admission Diagnosis/Problem Admission Diagnosis/Problem Hypertension - History of Present Illness Initial Comments - Free Text/Narative: 89 yo - Related Data Allergies/Adverse Reactions: Allergies Allergy/AdvReac Type Severity Reaction Status Date / Time No Known Allergies Allergy Unverified 02/10/21 00:55 Home Medications: Home Meds Clopidogrel [Plavix] 75 mg PO DAILY 02/10/21 [History] Insulin Glargine,Hum.Rec.Anlog [Basaglar Kwikpen U-100] 02/10/21 [History] Metoprolol Tartrate 25 mg PO BID 02/10/21 [History] Pantoprazole [ProTONIX] 40 mg PO DAILY 02/10/21 [History] amLODIPine Besylate [Amlodipine Besylate] 10 mg PO DAILY 02/10/21 [History] atorvaSTATin [Lipitor] 40 mg PO DAILY 02/10/21 [History] metFORMIN HCl [Metformin HCl ER] 500 mg PO DAILY 02/10/21 [History] Past Medical History HEENT History: Reports: None Cardiovascular History: Reports: Afib, Hypertension Respiratory History: Reports: None Gastrointestinal History: Reports: None Genitourinary History: Reports: Other (See Below) Other Genitourinary History: CKD Musculoskeletal History: Reports: None Neurological History: Reports: None Psychiatric History: Reports: None Endocrine/Metabolic History: Reports: Diabetes, Type II Insulin Pump Model and Pattern Drum Maker: None Hematologic History: Reports: Anemia Immunologic History: Reports: None Oncologic (Cancer) History: Reports: None Dermatologic History: Reports: None - Infectious Disease History Infectious Disease History: Reports: None - Past Surgical History Cardiovascular Surgical History: Reports: None Social & Family History - Family History Family Medical History: No Pertinent Family History - Caffeine Use Caffeine Use: Reports: None Caffeine Use Comment: unknown - Recreational Drug Use Recreational Drug Use: No Exam - Vital Signs Vital Signs: Last Vital Signs Temp 36.1 C 02/10/21 05:40 Pulse 86 02/10/21 05:40 Resp 17 02/10/21 05:40 BP 263/132 H 02/10/21 06:09 Pulse Ox 98 02/10/21 05:40 Weight: 58.604 kg - Patient Data Lab Results Last 24 hrs: Laboratory Results - last 24 hr 02/10/21 02/10/21 02/10/21 Range/Units 00:40 00:40 00:40 WBC 7.47 (4.0-11.0) K/uL RBC 4.91 (4.50-5.90) M/uL Hgb 11.6 L (13.0-17.0) g/dL Hct 34.7 L (38.0-50.0) % MCV 70.7 L (80.0-98.0) fL MCH 23.6 L (27.0-32.0) pg MCHC 33.4 (31.0-37.0) g/dL RDW Std Deviation 33.9 (28.0-62.0) fl RDW Coeff of Nadia 14 (11.0-15.0) % Plt Count 307 (150-400) K/uL MPV 10.00 (7.40-12.00) fL Neut % (Auto) 57.9 (48.0-80.0) % Lymph % (Auto) 31.9 (16.0-40.0) % [place] % (Auto) 8.3 (0.0-15.0) % Eos % (Auto) 1.6 (0.0-7.0) % Baso % (Auto) 0.3 (0.0-1.5) % Neut # (Auto) 4.3 (1.4-5.7) K/uL Lymph # (Auto) 2.4 (0.6-2.4) K/uL [place]ard # (Auto) 0.6 (0.0-0.8) K/uL Eos # (Auto) 0.1 (0.0-0.7) K/uL Baso # (Auto) 0.0 (0.0-0.1) K/uL INR 1.00 Sodium (136-148) mmol/L Potassium (3.5-5.1) mmol/L Chloride (98-107) mmol/L Carbon Dioxide (21.0-32.0) mmol/L BUN (7.0-18.0) mg/dL Creatinine (0.8-1.3) mg/dL Est Cr Clr Drug Dosing Estimated GFR (MDRD) ml/min Glucose (74-106) mg/dL POC Glucose (70-99) mg/dL Hemoglobin A1c (4.5 - 6.2) % Calcium (8.5-10.1) mg/dL Magnesium (1.8-2.4) mg/dL Total Bilirubin (0.2-1.0) mg/dL AST (15-37) IU/L ALT (14-63) IU/L Alkaline Phosphatase (46-116) U/L Troponin I (0.000-0.056) ng/mL Total Protein (6.4-8.2) g/dL Albumin (3.4-5.0) g/dL Globulin (2.6-4.0) g/dL Albumin/Globulin Ratio (0.9-1.6) Urine Color YELLOW Urine Appearance CLEAR Urine pH 6.0 (5.0-8.0) Ur Specific [place] 1.020 (1.001-1.035) Urine Protein 100 H (NEGATIVE) mg/dL Urine Glucose (UA) 500 H (NEGATIVE) mg/dL Urine Ketones NEGATIVE (NEGATIVE) mg/dL Urine Occult Blood TRACE-INTACT H (NEGATIVE) Urine Nitrite NEGATIVE (NEGATIVE) Urine Bilirubin NEGATIVE (NEGATIVE) Urine Urobilinogen 0.2 (<2.0) EU/dL Ur Leukocyte Esterase NEGATIVE (NEGATIVE) Urine RBC 0-1 (0-2/HPF) Urine WBC 0-1 (0-5/HPF) Ur Epithelial Cells FEW (NONE-FEW) Amorphous Sediment LIGHT (NEGATIVE) Urine Bacteria 1+ H (NEGATIVE) Urine Mucus LIGHT (NONE-MOD) Ethyl Alcohol mg/dL SARS-CoV-2 RNA (TEA) (NEGATIVE) 02/10/21 02/10/21 02/10/21 Range/Units 00:40 00:40 00:40 WBC (4.0-11.0) K/uL RBC (4.50-5.90) M/uL Hgb (13.0-17.0) g/dL Hct (38.0-50.0) % MCV (80.0-98.0) fL MCH (27.0-32.0) pg MCHC (31.0-37.0) g/dL RDW Std Deviation (28.0-62.0) fl RDW Coeff of Nadia (11.0-15.0) % Plt Count (150-400) K/uL MPV (7.40-12.00) fL Neut % (Auto) (48.0-80.0) % Lymph % (Auto) (16.0-40.0) % Garrard % (Auto) (0.0-15.0) % Eos % (Auto) (0.0-7.0) % Baso % (Auto) (0.0-1.5) % Neut # (Auto) (1.4-5.7) K/uL Lymph # (Auto) (0.6-2.4) K/uL [place]ard # (Auto) (0.0-0.8) K/uL Eos # (Auto) (0.0-0.7) K/uL Baso # (Auto) (0.0-0.1) K/uL INR Sodium 143 (136-148) mmol/L Potassium 5.1 (3.5-5.1) mmol/L Chloride 106 (98-107) mmol/L Carbon Dioxide 29.2 (21.0-32.0) mmol/L BUN 32 H (7.0-18.0) mg/dL Creatinine 3.1 H (0.8-1.3) mg/dL Est Cr Clr Drug Dosing TNP Estimated GFR (MDRD) 23.1 ml/min Glucose 454 H (74-106) mg/dL POC Glucose (70-99) mg/dL Hemoglobin A1c (4.5 - 6.2) % Calcium 9.5 (8.5-10.1) mg/dL Magnesium 2.3 (1.8-2.4) mg/dL Total Bilirubin 0.8 (0.2-1.0) mg/dL AST 16 (15-37) IU/L ALT 17 (14-63) IU/L Alkaline Phosphatase 89 (46-116) U/L Troponin I 0.086 H* (0.000-0.056) ng/mL Total Protein 7.5 (6.4-8.2) g/dL Albumin 3.6 (3.4-5.0) g/dL Globulin 3.9 (2.6-4.0) g/dL Albumin/Globulin Ratio 0.9 (0.9-1.6) Urine Color Urine Appearance Urine pH (5.0-8.0) Ur Specific [place] (1.001-1.035) Urine Protein (NEGATIVE) mg/dL Urine Glucose (UA) (NEGATIVE) mg/dL Urine Ketones (NEGATIVE) mg/dL Urine Occult Blood (NEGATIVE) Urine Nitrite (NEGATIVE) Urine Bilirubin (NEGATIVE) Urine Urobilinogen (<2.0) EU/dL Ur Leukocyte Esterase (NEGATIVE) Urine RBC (0-2/HPF) Urine WBC (0-5/HPF) Ur Epithelial Cells (NONE-FEW) Amorphous Sediment (NEGATIVE) Urine Bacteria (NEGATIVE) Urine Mucus (NONE-MOD) Ethyl Alcohol 3 mg/dL SARS-CoV-2 RNA (TEA) (NEGATIVE) 02/10/21 02/10/21 02/10/21 Range/Units 00:40 01:30 02:30 WBC (4.0-11.0) K/uL RBC (4.50-5.90) M/uL Hgb (13.0-17.0) g/dL Hct (38.0-50.0) % MCV (80.0-98.0) fL MCH (27.0-32.0) pg MCHC (31.0-37.0) g/dL RDW Std Deviation (28.0-62.0) fl RDW Coeff of Nadia (11.0-15.0) % Plt Count (150-400) K/uL MPV (7.40-12.00) fL Neut % (Auto) (48.0-80.0) % Lymph % (Auto) (16.0-40.0) % Garrard % (Auto) (0.0-15.0) % Eos % (Auto) (0.0-7.0) % Baso % (Auto) (0.0-1.5) % Neut # (Auto) (1.4-5.7) K/uL Lymph # (Auto) (0.6-2.4) K/uL [place]ard # (Auto) (0.0-0.8) K/uL Eos # (Auto) (0.0-0.7) K/uL Baso # (Auto) (0.0-0.1) K/uL INR Sodium 149 H (136-148) mmol/L Potassium 4.0 (3.5-5.1) mmol/L Chloride 111 H (98-107) mmol/L Carbon Dioxide 28.6 (21.0-32.0) mmol/L BUN 31 H (7.0-18.0) mg/dL Creatinine 3.0 H (0.8-1.3) mg/dL Est Cr Clr Drug Dosing TNP Estimated GFR (MDRD) 24.0 ml/min Glucose 185 H (74-106) mg/dL POC Glucose (70-99) mg/dL Hemoglobin A1c 8.1 H (4.5 - 6.2) % Calcium 9.8 (8.5-10.1) mg/dL Magnesium (1.8-2.4) mg/dL Total Bilirubin (0.2-1.0) mg/dL AST (15-37) IU/L ALT (14-63) IU/L Alkaline Phosphatase (46-116) U/L Troponin I (0.000-0.056) ng/mL Total Protein (6.4-8.2) g/dL Albumin (3.4-5.0) g/dL Globulin (2.6-4.0) g/dL Albumin/Globulin Ratio (0.9-1.6) Urine Color Urine Appearance Urine pH (5.0-8.0) Ur Specific [place] (1.001-1.035) Urine Protein (NEGATIVE) mg/dL Urine Glucose (UA) (NEGATIVE) mg/dL Urine Ketones (NEGATIVE) mg/dL Urine Occult Blood (NEGATIVE) Urine Nitrite (NEGATIVE) Urine Bilirubin (NEGATIVE) Urine Urobilinogen (<2.0) EU/dL Ur Leukocyte Esterase (NEGATIVE) Urine RBC (0-2/HPF) Urine WBC (0-5/HPF) Ur Epithelial Cells (NONE-FEW) Amorphous Sediment (NEGATIVE) Urine Bacteria (NEGATIVE) Urine Mucus (NONE-MOD) Ethyl Alcohol mg/dL SARS-CoV-2 RNA (TEA) NEGATIVE (NEGATIVE) 02/10/21 02/10/21 Range/Units 02:30 02:40 WBC (4.0-11.0) K/uL RBC (4.50-5.90) M/uL Hgb (13.0-17.0) g/dL Hct (38.0-50.0) % MCV (80.0-98.0) fL MCH (27.0-32.0) pg MCHC (31.0-37.0) g/dL RDW Std Deviation (28.0-62.0) fl RDW Coeff of Nadia (11.0-15.0) % Plt Count (150-400) K/uL MPV (7.40-12.00) fL Neut % (Auto) (48.0-80.0) % Lymph % (Auto) (16.0-40.0) % Garrard % (Auto) (0.0-15.0) % Eos % (Auto) (0.0-7.0) % Baso % (Auto) (0.0-1.5) % Neut # (Auto) (1.4-5.7) K/uL Lymph # (Auto) (0.6-2.4) K/uL G[place]ard # (Auto) (0.0-0.8) K/uL Eos # (Auto) (0.0-0.7) K/uL Baso # (Auto) (0.0-0.1) K/uL INR Sodium (136-148) mmol/L Potassium (3.5-5.1) mmol/L Chloride (98-107) mmol/L Carbon Dioxide (21.0-32.0) mmol/L BUN (7.0-18.0) mg/dL Creatinine (0.8-1.3) mg/dL Est Cr Clr Drug Dosing Estimated GFR (MDRD) ml/min Glucose (74-106) mg/dL POC Glucose 123 H (70-99) mg/dL Hemoglobin A1c (4.5 - 6.2) % Calcium (8.5-10.1) mg/dL Magnesium (1.8-2.4) mg/dL Total Bilirubin (0.2-1.0) mg/dL AST (15-37) IU/L ALT (14-63) IU/L Alkaline Phosphatase (46-116) U/L Troponin I 0.085 H* (0.000-0.056) ng/mL Total Protein (6.4-8.2) g/dL Albumin (3.4-5.0) g/dL Globulin (2.6-4.0) g/dL Albumin/Globulin Ratio (0.9-1.6) Urine Color Urine Appearance Urine pH (5.0-8.0) Ur Specific [place] (1.001-1.035) Urine Protein (NEGATIVE) mg/dL Urine Glucose (UA) (NEGATIVE) mg/dL Urine Ketones (NEGATIVE) mg/dL Urine Occult Blood (NEGATIVE) Urine Nitrite (NEGATIVE) Urine Bilirubin (NEGATIVE) Urine Urobilinogen (<2.0) EU/dL Ur Leukocyte Esterase (NEGATIVE) Urine RBC (0-2/HPF) Urine WBC (0-5/HPF) Ur Epithelial Cells (NONE-FEW) Amorphous Sediment (NEGATIVE) Urine Bacteria (NEGATIVE) Urine Mucus (NONE-MOD) Ethyl Alcohol mg/dL SARS-CoV-2 RNA (TEA) (NEGATIVE) Result Diagrams: 02/10/21 00:40 02/10/21 02:30 Sepsis Event Note - Evaluation Sepsis Screening Result: No Definite Risk - Focused Exam Vital Signs: Vital Signs Temp Pulse Resp BP BP Pulse Ox 02/10/21 06:09 263/132 H 02/10/21 05:40 36.1 C 86 17 263/132 H 98 02/10/21 04:51 89 18 154/109 H 98 02/10/21 04:12 36.1 C 88 18 194/101 H 98 02/10/21 02:54 104 H 16 218/88 H 96 02/10/21 01:15 90 18 179/115 H 100 02/10/21 00:25 36.3 C 97 18 243/117 H 95 Orders Last 24hrs: Active Orders 24 hr Category Date Time Status Admission Status [Patient Status] [ADT] Stat ADT 02/10/21 04:17 Active Accu Check [Blood Glucose Check, Bedside] [RC] TIDAC Care 02/10/21 07:30 Active EKG Documentation Completion [RC] AM Care 02/10/21 00:46 Active Telemetry Monitoring [Cardiac Monitoring] [RC] . Care 02/10/21 04:33 Active DIRECTED ADA Diabetic [[place] [employer] Diet] [DIET Diet 02/10/21 Breakfast Active ] TROPONIN I [CHEM] Q6H Lab 02/10/21 08:30 Ordered TROPONIN I [CHEM] Q6H Lab 02/10/21 14:30 Ordered Dextrose 50% in Water Med 02/10/21 01:19 Active 50 ml IV ASDIRECTED PRN Glucagon,Human Recombinant [GlucaGen] Med 02/10/21 01:19 Active 1 mg IM ASDIRECTED PRN Glucagon,Human Recombinant [GlucaGen] Med 02/10/21 06:02 Active 1 mg IM ASDIRECTED PRN Insulin Aspart [NovoLOG] Med 02/10/21 07:30 Active See Protocol SUBCUT TIDAC Sodium Chloride 0.9% [Saline Flush] Med 02/10/21 00:46 Active 10 ml FLUSH ASDIRECTED PRN Sodium Chloride 0.9% [Saline Flush] Med 02/10/21 00:46 Active 2.5 ml FLUSH ASDIRECTED PRN Saline Lock Insert [OM.PC] Stat Oth 02/10/21 00:46 Ordered Medication Orders Dextrose/Water (50% Dextrose In Water 50 Ml Syringe) 50 ml IV ASDIRECTED PRN PRN Reason: Hypoglycemia Glucagon (Glucagon,Human Recombinant 1 Mg Vial) 1 mg IM ASDIRECTED PRN PRN Reason: Hypoglycemia Glucagon (Glucagon,Human Recombinant 1 Mg Vial) 1 mg IM ASDIRECTED PRN PRN Reason: Hypoglycemia Insulin Aspart (Insulin Aspart 100 Units/Ml 3 Ml Pen) 0 unit SUBCUT TIDAC [place]; Protocol Sodium Chloride (Sodium Chloride 0.9% 10 Ml Syringe) 10 ml FLUSH ASDIRECTED PRN PRN Reason: Keep Vein Open Last Admin: 02/10/21 01:01 Dose: 10 ml Documented by: KAM Sodium Chloride (Sodium Chloride 0.9% 2.5 Ml Syringe) 2.5 ml FLUSH ASDIRECTED PRN PRN Reason: Keep Vein Open Last Admin: 02/10/21 01:02 Dose: 2.5 ml Documented by: KAM
[2021-02-10] MEDS ORDERED: Sodium Chloride 0.45% 1,000 ML IV SCH (08:00)
[2021-02-10] MEDS ORDERED: Metoprolol Tartrate 25 MG Tab PO SCH (08:00)
--- NOTE | 2021-02-10 08:00 | PCM.HP.2 ---
H&P History of Present Illness - General Date of Service: 02/10/21 Admit Problem/Dx: Admission Diagnosis/Problem Admission Diagnosis/Problem Hypertension - History of Present Illness Initial Comments - Free Text/Narative: 89 yo male with pmh of hypertension, CVA, DM who was transferred to [place] in November for elevated troponins. Patient reports he has been neglecting himself for the past several months. According to his pharmacy records he hasn't fill any prescriptions since November which were only a month supply. Patient reports increased weakness and poor apatite. He also reports increased thirst and urination. Patient reports his works. I have tried calling family but have not had any response. Patient denies any fevers, chills, shortness of breath, chest pain, or headache. He denies any nausea, vomiting, or blood in stool. In the ED patient was noted to have Blood pressure in the 240s systolic. His sodium was 143, glucose 454, troponin, 0.086, Creatinine 3.0. After a liter of fluid and 10 units of insulin and hydralazin his blood pressure did improving and his sodium increased to 149 and glucose improved to 185. - Related Data Allergies/Adverse Reactions: Allergies Allergy/AdvReac Type Severity Reaction Status Date / Time No Known Allergies Allergy Unverified 02/10/21 00:55 Home Medications: Home Meds Clopidogrel [Plavix] 75 mg PO DAILY 02/10/21 [History] Insulin Glargine,Hum.Rec.Anlog [Basaglar Kwikpen U-100] 12 unit SUBCUT DAILY 02/10/21 [History] Pantoprazole [ProTONIX] 40 mg PO DAILY 02/10/21 [History] amLODIPine Besylate [Amlodipine Besylate] 10 mg PO DAILY 02/10/21 [History] atorvaSTATin [Lipitor] 40 mg PO BEDTIME 02/10/21 [History] lisinopriL [Lisinopril] 5 mg PO DAILY 02/10/21 [History] metFORMIN HCl [Metformin HCl ER] 500 mg PO WITHDINNER 02/10/21 [History] Past Medical History HEENT History: Reports: None Cardiovascular History: Reports: Afib, Hypertension Respiratory History: Reports: None Gastrointestinal History: Reports: None Genitourinary History: Reports: Other (See Below) Other Genitourinary History: CKD Musculoskeletal History: Reports: None Neurological History: Reports: None Psychiatric History: Reports: None Endocrine/Metabolic History: Reports: Diabetes, Type II Insulin Pump Model and Pt Escort: None Hematologic History: Reports: Anemia Immunologic History: Reports: None Oncologic (Cancer) History: Reports: None Dermatologic History: Reports: None - Infectious Disease History Infectious Disease History: Reports: None - Past Surgical History Cardiovascular Surgical History: Reports: None Social & Family History - Family History Family Medical History: No Pertinent Family History - Caffeine Use Caffeine Use: Reports: None Caffeine Use Comment: unknown - Recreational Drug Use Recreational Drug Use: No H&P Review of Systems - Review of Systems: Review Of Systems: Comprehensive ROS is negative, except as noted in HPI. Exam - Exam Exam: See Below - Vital Signs Vital Signs: Last Vital Signs Temp 36.1 C 02/10/21 05:40 Pulse 84 02/10/21 07:13 Resp 17 02/10/21 07:13 BP 194/91 H 02/10/21 07:13 Pulse Ox 97 02/10/21 07:13 Weight: 58.604 kg - Exam General: Alert, Cooperative. No: Mild Distress HEENT: Mucosa Moist & [place] Neck: Supple Lungs: Clear to Auscultation, Normal Respiratory Effort Cardiovascular: Regular Rate, Regular Rhythm GI/Abdominal Exam: Normal Bowel Sounds, Soft, Non-Tender, No Distention Extremities: Non-Tender, No Pedal Edema Skin: Warm, Dry, Intact - Patient Data Lab Results Last 24 hrs: Laboratory Results - last 24 hr 02/10/21 02/10/21 02/10/21 Range/Units 00:40 00:40 00:40 WBC 7.47 (4.0-11.0) K/uL RBC 4.91 (4.50-5.90) M/uL Hgb 11.6 L (13.0-17.0) g/dL Hct 34.7 L (38.0-50.0) % MCV 70.7 L (80.0-98.0) fL MCH 23.6 L (27.0-32.0) pg MCHC 33.4 (31.0-37.0) g/dL RDW Std Deviation 33.9 (28.0-62.0) fl RDW Coeff of Nadia 14 (11.0-15.0) % Plt Count 307 (150-400) K/uL MPV 10.00 (7.40-12.00) fL Neut % (Auto) 57.9 (48.0-80.0) % Lymph % (Auto) 31.9 (16.0-40.0) % [place] % (Auto) 8.3 (0.0-15.0) % Eos % (Auto) 1.6 (0.0-7.0) % Baso % (Auto) 0.3 (0.0-1.5) % Neut # (Auto) 4.3 (1.4-5.7) K/uL Lymph # (Auto) 2.4 (0.6-2.4) K/uL [place] # (Auto) 0.6 (0.0-0.8) K/uL Eos # (Auto) 0.1 (0.0-0.7) K/uL Baso # (Auto) 0.0 (0.0-0.1) K/uL INR 1.00 Sodium (136-148) mmol/L Potassium (3.5-5.1) mmol/L Chloride (98-107) mmol/L Carbon Dioxide (21.0-32.0) mmol/L BUN (7.0-18.0) mg/dL Creatinine (0.8-1.3) mg/dL Est Cr Clr Drug Dosing Estimated GFR (MDRD) ml/min Glucose (74-106) mg/dL POC Glucose (70-99) mg/dL Hemoglobin A1c (4.5 - 6.2) % Calcium (8.5-10.1) mg/dL Magnesium (1.8-2.4) mg/dL Total Bilirubin (0.2-1.0) mg/dL AST (15-37) IU/L ALT (14-63) IU/L Alkaline Phosphatase (46-116) U/L Troponin I (0.000-0.056) ng/mL Total Protein (6.4-8.2) g/dL Albumin (3.4-5.0) g/dL Globulin (2.6-4.0) g/dL Albumin/Globulin Ratio (0.9-1.6) Urine Color YELLOW Urine Appearance CLEAR Urine pH 6.0 (5.0-8.0) Ur Specific [place] 1.020 (1.001-1.035) Urine Protein 100 H (NEGATIVE) mg/dL Urine Glucose (UA) 500 H (NEGATIVE) mg/dL Urine Ketones NEGATIVE (NEGATIVE) mg/dL Urine Occult Blood TRACE-INTACT H (NEGATIVE) Urine Nitrite NEGATIVE (NEGATIVE) Urine Bilirubin NEGATIVE (NEGATIVE) Urine Urobilinogen 0.2 (<2.0) EU/dL Ur Leukocyte Esterase NEGATIVE (NEGATIVE) Urine RBC 0-1 (0-2/HPF) Urine WBC 0-1 (0-5/HPF) Ur Epithelial Cells FEW (NONE-FEW) Amorphous Sediment LIGHT (NEGATIVE) Urine Bacteria 1+ H (NEGATIVE) Urine Mucus LIGHT (NONE-MOD) Ethyl Alcohol mg/dL SARS-CoV-2 RNA (TEA) (NEGATIVE) 02/10/21 02/10/21 02/10/21 Range/Units 00:40 00:40 00:40 WBC (4.0-11.0) K/uL RBC (4.50-5.90) M/uL Hgb (13.0-17.0) g/dL Hct (38.0-50.0) % MCV (80.0-98.0) fL MCH (27.0-32.0) pg MCHC (31.0-37.0) g/dL RDW Std Deviation (28.0-62.0) fl RDW Coeff of Nadia (11.0-15.0) % Plt Count (150-400) K/uL MPV (7.40-12.00) fL Neut % (Auto) (48.0-80.0) % Lymph % (Auto) (16.0-40.0) % [place] % (Auto) (0.0-15.0) % Eos % (Auto) (0.0-7.0) % Baso % (Auto) (0.0-1.5) % Neut # (Auto) (1.4-5.7) K/uL Lymph # (Auto) (0.6-2.4) K/uL [place] # (Auto) (0.0-0.8) K/uL Eos # (Auto) (0.0-0.7) K/uL Baso # (Auto) (0.0-0.1) K/uL INR Sodium 143 (136-148) mmol/L Potassium 5.1 (3.5-5.1) mmol/L Chloride 106 (98-107) mmol/L Carbon Dioxide 29.2 (21.0-32.0) mmol/L BUN 32 H (7.0-18.0) mg/dL Creatinine 3.1 H (0.8-1.3) mg/dL Est Cr Clr Drug Dosing TNP Estimated GFR (MDRD) 23.1 ml/min Glucose 454 H (74-106) mg/dL POC Glucose (70-99) mg/dL Hemoglobin A1c (4.5 - 6.2) % Calcium 9.5 (8.5-10.1) mg/dL Magnesium 2.3 (1.8-2.4) mg/dL Total Bilirubin 0.8 (0.2-1.0) mg/dL AST 16 (15-37) IU/L ALT 17 (14-63) IU/L Alkaline Phosphatase 89 (46-116) U/L Troponin I 0.086 H* (0.000-0.056) ng/mL Total Protein 7.5 (6.4-8.2) g/dL Albumin 3.6 (3.4-5.0) g/dL Globulin 3.9 (2.6-4.0) g/dL Albumin/Globulin Ratio 0.9 (0.9-1.6) Urine Color Urine Appearance Urine pH (5.0-8.0) Ur Specific [place] (1.001-1.035) Urine Protein (NEGATIVE) mg/dL Urine Glucose (UA) (NEGATIVE) mg/dL Urine Ketones (NEGATIVE) mg/dL Urine Occult Blood (NEGATIVE) Urine Nitrite (NEGATIVE) Urine Bilirubin (NEGATIVE) Urine Urobilinogen (<2.0) EU/dL Ur Leukocyte Esterase (NEGATIVE) Urine RBC (0-2/HPF) Urine WBC (0-5/HPF) Ur Epithelial Cells (NONE-FEW) Amorphous Sediment (NEGATIVE) Urine Bacteria (NEGATIVE) Urine Mucus (NONE-MOD) Ethyl Alcohol 3 mg/dL SARS-CoV-2 RNA (TEA) (NEGATIVE) 02/10/21 02/10/21 02/10/21 Range/Units 00:40 01:30 02:30 WBC (4.0-11.0) K/uL RBC (4.50-5.90) M/uL Hgb (13.0-17.0) g/dL Hct (38.0-50.0) % MCV (80.0-98.0) fL MCH (27.0-32.0) pg MCHC (31.0-37.0) g/dL RDW Std Deviation (28.0-62.0) fl RDW Coeff of Nadia (11.0-15.0) % Plt Count (150-400) K/uL MPV (7.40-12.00) fL Neut % (Auto) (48.0-80.0) % Lymph % (Auto) (16.0-40.0) % [place] % (Auto) (0.0-15.0) % Eos % (Auto) (0.0-7.0) % Baso % (Auto) (0.0-1.5) % Neut # (Auto) (1.4-5.7) K/uL Lymph # (Auto) (0.6-2.4) K/uL [place] # (Auto) (0.0-0.8) K/uL Eos # (Auto) (0.0-0.7) K/uL Baso # (Auto) (0.0-0.1) K/uL INR Sodium 149 H (136-148) mmol/L Potassium 4.0 (3.5-5.1) mmol/L Chloride 111 H (98-107) mmol/L Carbon Dioxide 28.6 (21.0-32.0) mmol/L BUN 31 H (7.0-18.0) mg/dL Creatinine 3.0 H (0.8-1.3) mg/dL Est Cr Clr Drug Dosing TNP Estimated GFR (MDRD) 24.0 ml/min Glucose 185 H (74-106) mg/dL POC Glucose (70-99) mg/dL Hemoglobin A1c 8.1 H (4.5 - 6.2) % Calcium 9.8 (8.5-10.1) mg/dL Magnesium (1.8-2.4) mg/dL Total Bilirubin (0.2-1.0) mg/dL AST (15-37) IU/L ALT (14-63) IU/L Alkaline Phosphatase (46-116) U/L Troponin I (0.000-0.056) ng/mL Total Protein (6.4-8.2) g/dL Albumin (3.4-5.0) g/dL Globulin (2.6-4.0) g/dL Albumin/Globulin Ratio (0.9-1.6) Urine Color Urine Appearance Urine pH (5.0-8.0) Ur Specific [place] (1.001-1.035) Urine Protein (NEGATIVE) mg/dL Urine Glucose (UA) (NEGATIVE) mg/dL Urine Ketones (NEGATIVE) mg/dL Urine Occult Blood (NEGATIVE) Urine Nitrite (NEGATIVE) Urine Bilirubin (NEGATIVE) Urine Urobilinogen (<2.0) EU/dL Ur Leukocyte Esterase (NEGATIVE) Urine RBC (0-2/HPF) Urine WBC (0-5/HPF) Ur Epithelial Cells (NONE-FEW) Amorphous Sediment (NEGATIVE) Urine Bacteria (NEGATIVE) Urine Mucus (NONE-MOD) Ethyl Alcohol mg/dL SARS-CoV-2 RNA (TEA) NEGATIVE (NEGATIVE) 02/10/21 02/10/21 Range/Units 02:30 02:40 WBC (4.0-11.0) K/uL RBC (4.50-5.90) M/uL Hgb (13.0-17.0) g/dL Hct (38.0-50.0) % MCV (80.0-98.0) fL MCH (27.0-32.0) pg MCHC (31.0-37.0) g/dL RDW Std Deviation (28.0-62.0) fl RDW Coeff of Nadia (11.0-15.0) % Plt Count (150-400) K/uL MPV (7.40-12.00) fL Neut % (Auto) (48.0-80.0) % Lymph % (Auto) (16.0-40.0) % [place] % (Auto) (0.0-15.0) % Eos % (Auto) (0.0-7.0) % Baso % (Auto) (0.0-1.5) % Neut # (Auto) (1.4-5.7) K/uL Lymph # (Auto) (0.6-2.4) K/uL [place] # (Auto) (0.0-0.8) K/uL Eos # (Auto) (0.0-0.7) K/uL Baso # (Auto) (0.0-0.1) K/uL INR Sodium (136-148) mmol/L Potassium (3.5-5.1) mmol/L Chloride (98-107) mmol/L Carbon Dioxide (21.0-32.0) mmol/L BUN (7.0-18.0) mg/dL Creatinine (0.8-1.3) mg/dL Est Cr Clr Drug Dosing Estimated GFR (MDRD) ml/min Glucose (74-106) mg/dL POC Glucose 123 H (70-99) mg/dL Hemoglobin A1c (4.5 - 6.2) % Calcium (8.5-10.1) mg/dL Magnesium (1.8-2.4) mg/dL Total Bilirubin (0.2-1.0) mg/dL AST (15-37) IU/L ALT (14-63) IU/L Alkaline Phosphatase (46-116) U/L Troponin I 0.085 H* (0.000-0.056) ng/mL Total Protein (6.4-8.2) g/dL Albumin (3.4-5.0) g/dL Globulin (2.6-4.0) g/dL Albumin/Globulin Ratio (0.9-1.6) Urine Color Urine Appearance Urine pH (5.0-8.0) Ur Specific [place] (1.001-1.035) Urine Protein (NEGATIVE) mg/dL Urine Glucose (UA) (NEGATIVE) mg/dL Urine Ketones (NEGATIVE) mg/dL Urine Occult Blood (NEGATIVE) Urine Nitrite (NEGATIVE) Urine Bilirubin (NEGATIVE) Urine Urobilinogen (<2.0) EU/dL Ur Leukocyte Esterase (NEGATIVE) Urine RBC (0-2/HPF) Urine WBC (0-5/HPF) Ur Epithelial Cells (NONE-FEW) Amorphous Sediment (NEGATIVE) Urine Bacteria (NEGATIVE) Urine Mucus (NONE-MOD) Ethyl Alcohol mg/dL SARS-CoV-2 RNA (TEA) (NEGATIVE) Result Diagrams: 02/10/21 00:40 02/10/21 02:30 Sepsis Event Note - Evaluation Sepsis Screening Result: No Definite Risk - Focused Exam Vital Signs: Vital Signs Temp Pulse Resp BP BP Pulse Ox 02/10/21 07:13 84 17 194/91 H 97 02/10/21 06:09 263/132 H 02/10/21 05:40 36.1 C 86 17 263/132 H 98 02/10/21 04:51 89 18 154/109 H 98 02/10/21 04:12 36.1 C 88 18 194/101 H 98 02/10/21 02:54 104 H 16 218/88 H 96 02/10/21 01:15 90 18 179/115 H 100 02/10/21 00:25 36.3 C 97 18 243/117 H 95 - Problem List (1) Troponin I above reference range SNOMED Code(s): 728888950 ICD Code: R77.8 - OTHER SPECIFIED ABNORMALITIES OF PLASMA PROTEINS Status: Acute Current Visit: Yes (2) Diabetes mellitus SNOMED Code(s): 84202046 ICD Code: E11.9 - TYPE 2 DIABETES MELLITUS WITHOUT COMPLICATIONS Status: Acute Current Visit: Yes (3) Dehydration SNOMED Code(s): 03908534 ICD Code: E86.0 - DEHYDRATION Status: Acute Current Visit: Yes (4) Dehydration with hypernatremia SNOMED Code(s): 869033644 ICD Code: E86.0 - DEHYDRATION; E87.0 - HYPEROSMOLALITY AND HYPERNATREMIA Status: Acute Current Visit: Yes (5) Hyperlipemia SNOMED Code(s): 53810864 ICD Code: E78.5 - HYPERLIPIDEMIA, UNSPECIFIED Status: Chronic Current Visit: Yes (6) RANCHO (acute kidney injury) SNOMED Code(s): 90335621, 96981861 ICD Code: N17.9 - ACUTE KIDNEY FAILURE, UNSPECIFIED Status: Acute Current Visit: Yes (7) Hyperglycemia SNOMED Code(s): 94151570 ICD Code: R73.9 - HYPERGLYCEMIA, UNSPECIFIED Status: Acute Current Visit: Yes (8) Hypertensive emergency SNOMED Code(s): 439092659176470 ICD Code: I16.1 - HYPERTENSIVE EMERGENCY Status: Acute Current Visit: Yes (9) Weakness SNOMED Code(s): 31116347 ICD Code: R53.1 - WEAKNESS Status: Acute Current Visit: Yes (10) Chronic kidney disease SNOMED Code(s): 510387740 ICD Code: N18.9 - CHRONIC KIDNEY DISEASE, UNSPECIFIED Status: Chronic Current Visit: No (11) Hypertension SNOMED Code(s): 04944141 ICD Code: I10 - ESSENTIAL (PRIMARY) HYPERTENSION Status: Acute Current Visit: No Qualifiers: Hypertension type: essential hypertension Qualified Code(s): I10 - Essential (primary) hypertension (12) Renal insufficiency SNOMED Code(s): 880640263, 173088722 ICD Code: N28.9 - DISORDER OF KIDNEY AND URETER, UNSPECIFIED Status: Acute Current Visit: No Problem List Initiated/Reviewed/Updated: Yes Orders Last 24hrs: Active Orders 24 hr Category Date Time Status Admission Status [Patient Status] [ADT] Stat ADT 02/10/21 04:17 Active Accu Check [Blood Glucose Check, Bedside] [RC] TIDAC Care 02/10/21 07:30 Active EKG Documentation Completion [RC] AM Care 02/10/21 00:46 Active Telemetry Monitoring [Cardiac Monitoring] [RC] . Care 02/10/21 04:33 Active DIRECTED ADA Diabetic [[place] [employer] Diet] [DIET Diet 02/10/21 Breakfast Active ] TROPONIN I [CHEM] Q6H Lab 02/10/21 08:30 Ordered TROPONIN I [CHEM] Q6H Lab 02/10/21 14:30 Ordered Clopidogrel [Plavix] Med 02/10/21 09:00 Ordered 75 mg PO DAILY Dextrose 50% in Water Med 02/10/21 01:19 Active 50 ml IV ASDIRECTED PRN Dextrose 50% in Water Med 02/10/21 07:50 Ordered 50 ml IV ASDIRECTED PRN Glucagon,Human Recombinant [GlucaGen] Med 02/10/21 01:19 Active 1 mg IM ASDIRECTED PRN Glucagon,Human Recombinant [GlucaGen] Med 02/10/21 06:02 Active 1 mg IM ASDIRECTED PRN Glucagon,Human Recombinant [GlucaGen] Med 02/10/21 07:50 Ordered 1 mg IM ASDIRECTED PRN Insulin Aspart [NovoLOG] Med 02/10/21 07:30 Active See Protocol SUBCUT TIDA Insulin Glarg,Human.Rec.Analog [LantUS Solostar] Med 02/10/21 21:00 Ordered 5 units SUBCUT BEDTIME Sodium Chloride 0.45% @ 125 MLS/HR(1,000ml) Med 02/10/21 08:00 Ordered Sodium Chloride 0.45% 1,000 ml IV ASDIRECTED Sodium Chloride 0.9% [Saline Flush] Med 02/10/21 00:46 Active 10 ml FLUSH ASDIRECTED PRN Sodium Chloride 0.9% [Saline Flush] Med 02/10/21 00:46 Active 2.5 ml FLUSH ASDIRECTED PRN amLODIPine Besylate Med 02/10/21 09:00 Ordered 10 mg PO DAILY atorvaSTATin [Lipitor] Med 02/10/21 21:00 Ordered 40 mg PO BEDTIME lisinopriL [Prinivil] Med 02/10/21 09:00 Ordered 5 mg PO DAILY Obtain Past Medical Record [OM.PC] Routine Oth 02/10/21 06:58 Active Saline Lock Insert [OM.PC] Stat Oth 02/10/21 00:46 Ordered Medication Orders Atorvastatin Calcium (Atorvastatin 40 Mg Tab) 40 mg PO BEDTIME [place] Clopidogrel Bisulfate (Clopidogrel 75 Mg Tab) 75 mg PO DAILY [place] Dextrose/Water (50% Dextrose In Water 50 Ml Syringe) 50 ml IV ASDIRECTED PRN PRN Reason: Hypoglycemia Dextrose/Water (50% Dextrose In Water 50 Ml Syringe) 50 ml IV ASDIRECTED PRN PRN Reason: Hypoglycemia Glucagon (Glucagon,Human Recombinant 1 Mg Vial) 1 mg IM ASDIRECTED PRN PRN Reason: Hypoglycemia Glucagon (Glucagon,Human Recombinant 1 Mg Vial) 1 mg IM ASDIRECTED PRN PRN Reason: Hypoglycemia Glucagon (Glucagon,Human Recombinant 1 Mg Vial) 1 mg IM ASDIRECTED PRN PRN Reason: Hypoglycemia Sodium Chloride (Sodium Chloride 0.45%) 1,000 mls @ 125 mls/hr IV ASDIRECTED [place] Stop: 02/10/21 15:59 Insulin Aspart (Insulin Aspart 100 Units/Ml 3 Ml Pen) 0 unit SUBCUT TIDAC [place]; Protocol Insulin Glargine (Insulin Glargine,Human Rec. Analog 100 Units/Ml 3 Ml Pen) 5 units SUBCUT BEDTIME [place] Lisinopril (Lisinopril 5 Mg Tab) 5 mg PO DAILY [facility] Non-Formulary Medication (Amlodipine Besylate) 10 mg PO DAILY [place] Sodium Chloride (Sodium Chloride 0.9% 10 Ml Syringe) 10 ml FLUSH ASDIRECTED PRN PRN Reason: Keep Vein Open Last Admin: 02/10/21 01:01 Dose: 10 ml Documented by: SEAGMIC Sodium Chloride (Sodium Chloride 0.9% 2.5 Ml Syringe) 2.5 ml FLUSH ASDIRECTED PRN PRN Reason: Keep Vein Open Last Admin: 02/10/21 01:02 Dose: 2.5 ml Documented by: KAM Assessment/Plan Comment:: 89 yo male admitted for dehydration, hyperglycemia, acute on chronic renal disease, and hypertensive urgency. Dehydration/hypernatremia: continue resuscitation with IV fluids and trend sodium Hypertensive urgency: repeat BP on medical floor was 260 systolic, gave clonidine and will restart lisinopril and amlodipine Hyperglycemia: responded well to insulin will place on ssi insulin diabetic diet and lantus at bedtime acute on chronic renal disease: on IV fluids and will trend creatinine Elevated troponin: patient not complaining of any chest pain so ACS less likely, Troponin have been chronically elevated. Will obtain past medical records from hospitalization in [place]. Will resume Plavix which was on his medication list in November.
[2021-02-10] MEDS ORDERED: Lisinopril 5 MG Tab PO SCH (09:00)
--- NOTE | 2021-02-10 09:41 | PCM.SN.2 ---
- Free Text/Narrative Note: His repeat troponin is 0.119. Patient does not having any chest pain. Blood pressure has improved to 170 systolic. We will transfer to ICU to ensure closer monitoring of blood pressure.
[2021-02-10] MEDS: amLODIPine 5 MG Tab PO SCH (09:43)
[2021-02-10] MEDS: Insulin Aspart 100 Units/ML 3 ML Pen SUBCUT SCH ×3 (09:44→17:38)
[2021-02-10] MEDS: Clopidogrel 75 MG Tab PO SCH (09:44)
[2021-02-10] MEDS ORDERED: Aspirin 81 MG Tab.Chew PO ONE (09:44)
--- NOTE | 2021-02-10 11:11 | PN ---
THC Physician - Brief Progress [id number]/22/2021 11:09[facility] Steffen Clement, [place] - MWN (PAMELA) - MWN Lara MARQUEZlaura of Service 02/10/2021 11:09HPI/Events of Note eICU Admission [id number] admitted for hypertensive emergency. History obtained from review of EMR. Camera exam: Laying in bed. Vitals monitor reviewed. eICU Recommendations:Recommend reduction in MAP gradually to a total of 25 percent compared with presenting pressures in the first 24 hours. Defer ch oice of anti-hypertensive to primary service, we are available to assist further as desiredContinue t o trend troponin, anticipate it is likely related to a type 2 NSTEMI from hypertension rather than AC S, and such should downtrend with adequate blood pressure controlIn setting of RANCHO would hold lisinop rilStrict I/OAvoid nephrotoxic agentsDVT and GI prophylaxis as appropriate.Thank you for allowing us to participate in the care of this patient.Unless otherwise specified, defer implementation of above recommendations to discretion of bedside provider. Please do not hesitate to contact the eICU service for questions, clarification, or assistance with implementation.The above note transcribed with the assistance of dictation software. Please excuse any errors.Interventions Major-Hypertension - evaluat ion and management
[2021-02-10] MEDS: Heparin Sodium 5,000 Units/ML Vial SUBCUT SCH ×2 (12:07→19:55)
[2021-02-10 15:41] LABS: BLOOD UREA NITROGEN,BUN 30 mg/dL (7.0-18.0); CARBON DIOXIDE,CO2 23.9 mmol/L (21.0-32.0); GLUCOSE RANDOM 226 mg/dL (74-106)
[2021-02-10 15:48] LABS: CHLORIDE,CL 106 mmol/L (98-107); POTASSIUM,K 3.9 mmol/L (3.5-5.1); SODIUM,NA 140 mmol/L (136-148)
[2021-02-10] MEDS: atorvaSTATin 40 MG Tab PO SCH (20:28)
[2021-02-10] MEDS ORDERED: Insulin Glargine,Human Rec. Analog 100 Units/ML 3 ML Pen SUBCUT SCH (21:00)
[2021-02-11] MEDS: Heparin Sodium 5,000 Units/ML Vial SUBCUT SCH ×3 (03:25→20:30)
[2021-02-11 06:48] LABS: BLOOD UREA NITROGEN,BUN 33 mg/dL (7.0-18.0); CARBON DIOXIDE,CO2 24.7 mmol/L (21.0-32.0); CHLORIDE,CL 106 mmol/L (98-107); GLUCOSE RANDOM 231 mg/dL (74-106); POTASSIUM,K 4.1 mmol/L (3.5-5.1); SODIUM,NA 140 mmol/L (136-148)
[2021-02-11] MEDS: Insulin Aspart 100 Units/ML 3 ML Pen SUBCUT SCH ×3 (08:56→18:47)
[2021-02-11] MEDS: amLODIPine 5 MG Tab PO SCH (08:58)
[2021-02-11] MEDS: Clopidogrel 75 MG Tab PO SCH (08:59)
--- NOTE | 2021-02-11 12:16 | PN ---
THC Physician - Brief Progress [id number]/23/2021 11:49[facility] Steffen Clement, [place] - CHRISN (PAMELA) - JOSEPHINE Du MARQUEZ of Service 02/11/2021 11:49HPI/Events of Note eICU Progress NotePt is a 89 yo M who presented to the ED on 02/11 with Hypertensive urgency afte r not taking his medications for several weeks. BP has stabilized and improved after resuming po meds . BG is still elevated > 200 on Lantus 5 units QHS, will increase to 8 units and continue to monitor. He is sitting up in a chair in NAD with stable VS. He may be stable for transfer to the [facility] later to day. Case was discussed with his nurse Jojo. eICU Recommendations:1) Continue po BP meds2) Increase Lantus to 8 units QHS3) CM support upon discharge with possible [facility]4) Possible transfer out of the nit later todayThank you for allowing us to participate in the care of your patient.Interventions Int [id number] therapies (e.g. VTE, beta mabel, etc.), Communication with other healthcare providers and/or family, Hyperglycemia - evaluation and treatment, Medication change / dose adjustme nt
--- NOTE | 2021-02-11 20:18 | PCM.PN ---
- General Info Date of Service: 02/11/21 - Review of Systems Systems Review Comment:: feeling better, no chest pain, no shortness of breath - Patient Data Vitals - Most Recent: Last Vital Signs Temp 36.2 C 02/11/21 16:00 Pulse 84 02/10/21 07:13 Resp 14 02/11/21 18:00 BP 140/81 02/11/21 18:00 Pulse Ox 97 02/11/21 18:00 Weight - Most Recent: 58.604 kg I&O - Last 24 Hours: Intake & Output 02/11/21 02/11/21 02/11/21 06:59 14:59 22:59 Intake Total 950 1000 Output Total 750 2 Balance 200 998 Lab Results Last 24 Hours: Laboratory Results - last 24 hr 02/11/21 02/11/21 02/11/21 Range/Units 06:08 06:08 08:25 WBC 7.30 (4.0-11.0) K/uL RBC 4.65 (4.50-5.90) M/uL Hgb 11.1 L (13.0-17.0) g/dL Hct 33.6 L (38.0-50.0) % MCV 72.3 L (80.0-98.0) fL MCH 23.9 L (27.0-32.0) pg MCHC 33.0 (31.0-37.0) g/dL RDW Std Deviation 35.5 (28.0-62.0) fl RDW Coeff of Nadia 14 (11.0-15.0) % Plt Count 293 (150-400) K/uL MPV 10.20 (7.40-12.00) fL Neut % (Auto) 51.1 (48.0-80.0) % Lymph % (Auto) 39.3 (16.0-40.0) % [place] % (Auto) 6.8 (0.0-15.0) % Eos % (Auto) 2.5 (0.0-7.0) % Baso % (Auto) 0.3 (0.0-1.5) % Neut # (Auto) 3.7 (1.4-5.7) K/uL Lymph # (Auto) 2.9 H (0.6-2.4) K/uL [place] # (Auto) 0.5 (0.0-0.8) K/uL Eos # (Auto) 0.2 (0.0-0.7) K/uL Baso # (Auto) 0.0 (0.0-0.1) K/uL Nucleated RBC % 0.0 /100WBC Nucleated RBCs # 0 K/uL Sodium 140 (136-148) mmol/L Potassium 4.1 (3.5-5.1) mmol/L Chloride 106 (98-107) mmol/L Carbon Dioxide 24.7 (21.0-32.0) mmol/L BUN 33 H (7.0-18.0) mg/dL Creatinine 2.5 H (0.8-1.3) mg/dL Est Cr Clr Drug Dosing TNP Estimated GFR (MDRD) 29.6 ml/min Glucose 231 H (74-106) mg/dL POC Glucose 205 H (70-99) mg/dL Calcium 8.9 (8.5-10.1) mg/dL Troponin I 0.074 H* (0.000-0.056) ng/mL 02/11/21 Range/Units 12:39 WBC (4.0-11.0) K/uL RBC (4.50-5.90) M/uL Hgb (13.0-17.0) g/dL Hct (38.0-50.0) % MCV (80.0-98.0) fL MCH (27.0-32.0) pg MCHC (31.0-37.0) g/dL RDW Std Deviation (28.0-62.0) fl RDW Coeff of Nadia (11.0-15.0) % Plt Count (150-400) K/uL MPV (7.40-12.00) fL Neut % (Auto) (48.0-80.0) % Lymph % (Auto) (16.0-40.0) % [place] % (Auto) (0.0-15.0) % Eos % (Auto) (0.0-7.0) % Baso % (Auto) (0.0-1.5) % Neut # (Auto) (1.4-5.7) K/uL Lymph # (Auto) (0.6-2.4) K/uL [place] # (Auto) (0.0-0.8) K/uL Eos # (Auto) (0.0-0.7) K/uL Baso # (Auto) (0.0-0.1) K/uL Nucleated RBC % /100WBC Nucleated RBCs # K/uL Sodium (136-148) mmol/L Potassium (3.5-5.1) mmol/L Chloride (98-107) mmol/L Carbon Dioxide (21.0-32.0) mmol/L BUN (7.0-18.0) mg/dL Creatinine (0.8-1.3) mg/dL Est Cr Clr Drug Dosing Estimated GFR (MDRD) ml/min Glucose (74-106) mg/dL POC Glucose 204 H (70-99) mg/dL Calcium (8.5-10.1) mg/dL Troponin I (0.000-0.056) ng/mL Med Orders - Current: Current Medications Amlodipine Besylate (Amlodipine 5 Mg Tab) 10 mg PO DAILY [facility] Last Admin: 02/11/21 08:58 Dose: 10 mg Documented by: Atorvastatin Calcium (Atorvastatin 40 Mg Tab) 40 mg PO BEDTIME [facility] Last Admin: 02/10/21 20:28 Dose: 40 mg Documented by: Clopidogrel Bisulfate (Clopidogrel 75 Mg Tab) 75 mg PO DAILY [facility] Last Admin: 02/11/21 08:59 Dose: 75 mg Documented by: Dextrose/Water (50% Dextrose In Water 50 Ml Syringe) 50 ml IV ASDIRECTED PRN PRN Reason: Hypoglycemia Glucagon (Glucagon,Human Recombinant 1 Mg Vial) 1 mg IM ASDIRECTED PRN PRN Reason: Hypoglycemia Heparin Sodium (Porcine) (Heparin Sodium 5,000 Units/Ml Vial) 5,000 units SUBCUT Q8H [facility] Last Admin: 02/11/21 12:46 Dose: 5,000 units Documented by: Sodium Chloride (Normal Saline) 1,000 mls @ 50 mls/hr IV ASDIRECTED [place] Insulin Aspart (Insulin Aspart 100 Units/Ml 3 Ml Pen) 0 unit SUBCUT TIDAC [facility]; Protocol Last Admin: 02/11/21 18:47 Dose: 2 units Documented by: Insulin Glargine (Insulin Glargine,Human Rec. Analog 100 Units/Ml 3 Ml Pen) 8 units SUBCUT BEDTIME [place] Lisinopril (Lisinopril 5 Mg Tab) 5 mg PO DAILY [facility] Last Admin: 02/10/21 09:43 Dose: 5 mg Documented by: Sodium Chloride (Sodium Chloride 0.9% 10 Ml Syringe) 10 ml FLUSH ASDIRECTED PRN PRN Reason: Keep Vein Open Last Admin: 02/10/21 01:01 Dose: 10 ml Documented by: Sodium Chloride (Sodium Chloride 0.9% 2.5 Ml Syringe) 2.5 ml FLUSH ASDIRECTED PRN PRN Reason: Keep Vein Open Last Admin: 02/10/21 01:02 Dose: 2.5 ml Documented by: Discontinued Medications Aspirin (Aspirin 81 Mg Tab.Chew) 324 mg PO ONETIME ONE Stop: 02/10/21 09:45 Last Admin: 02/10/21 09:49 Dose: 324 mg Documented by: Clonidine HCl (Clonidine 0.1 Mg Tab) 0.1 mg PO ONETIME ONE Stop: 02/10/21 05:56 Last Admin: 02/10/21 06:09 Dose: 0.1 mg Documented by: Dextrose/Water (50% Dextrose In Water 50 Ml Syringe) 50 ml IV ASDIRECTED PRN PRN Reason: Hypoglycemia Dextrose/Water (50% Dextrose In Water 50 Ml Syringe) 50 ml IV ASDIRECTED PRN PRN Reason: Hypoglycemia Glucagon (Glucagon,Human Recombinant 1 Mg Vial) 1 mg IM ASDIRECTED PRN PRN Reason: Hypoglycemia Glucagon (Glucagon,Human Recombinant 1 Mg Vial) 1 mg IM ASDIRECTED PRN PRN Reason: Hypoglycemia Hydralazine HCl (Hydralazine 20 Mg/Ml Sdv) 10 mg IVPUSH ONETIME ONE Stop: 02/10/21 01:28 Last Admin: 02/10/21 01:34 Dose: 10 mg Documented by: Sodium Chloride (Normal Saline) 1,000 mls @ 1,000 mls/hr IV .Bolus ONE Stop: 02/10/21 01:46 Last Admin: 02/10/21 01:01 Dose: 1,000 mls/hr Documented by: Sodium Chloride (Sodium Chloride 0.45%) 1,000 mls @ 125 mls/hr IV ASDIRECTED [place] Stop: 02/10/21 15:59 Insulin Glargine (Insulin Glargine,Human Rec. Analog 100 Units/Ml 3 Ml Pen) 5 units SUBCUT BEDTIME [facility] Last Admin: 02/10/21 20:29 Dose: 5 units Documented by: Insulin Human Regular (Insulin Regular, Human 100 Units/Ml 10 Ml Vial) 10 unit IVPUSH ONETIME ONE; Protocol Stop: 02/10/21 01:20 Last Admin: 02/10/21 01:27 Dose: 10 units Documented by: Metoprolol Tartrate (Metoprolol Tartrate 25 Mg Tab) 25 mg PO Q12H [place] - Exam General: Alert, Oriented Neck: Supple Lungs: Clear to Auscultation, Normal Respiratory Effort Cardiovascular: Regular Rate, Regular Rhythm GI/Abdominal Exam: Normal Bowel Sounds, Soft, Non-Tender, No Distention Extremities: Non-Tender, No Pedal Edema Skin: Warm, Dry, Intact Neurological: No New Focal Deficit - Patient Data Lab Results Last 24 hrs: Laboratory Results - last 24 hr 02/11/21 02/11/21 02/11/21 Range/Units 06:08 06:08 08:25 WBC 7.30 (4.0-11.0) K/uL RBC 4.65 (4.50-5.90) M/uL Hgb 11.1 L (13.0-17.0) g/dL Hct 33.6 L (38.0-50.0) % MCV 72.3 L (80.0-98.0) fL MCH 23.9 L (27.0-32.0) pg MCHC 33.0 (31.0-37.0) g/dL RDW Std Deviation 35.5 (28.0-62.0) fl RDW Coeff of Nadia 14 (11.0-15.0) % Plt Count 293 (150-400) K/uL MPV 10.20 (7.40-12.00) fL Neut % (Auto) 51.1 (48.0-80.0) % Lymph % (Auto) 39.3 (16.0-40.0) % [place] % (Auto) 6.8 (0.0-15.0) % Eos % (Auto) 2.5 (0.0-7.0) % Baso % (Auto) 0.3 (0.0-1.5) % Neut # (Auto) 3.7 (1.4-5.7) K/uL Lymph # (Auto) 2.9 H (0.6-2.4) K/uL [place] # (Auto) 0.5 (0.0-0.8) K/uL Eos # (Auto) 0.2 (0.0-0.7) K/uL Baso # (Auto) 0.0 (0.0-0.1) K/uL Nucleated RBC % 0.0 /100WBC Nucleated RBCs # 0 K/uL Sodium 140 (136-148) mmol/L Potassium 4.1 (3.5-5.1) mmol/L Chloride 106 (98-107) mmol/L Carbon Dioxide 24.7 (21.0-32.0) mmol/L BUN 33 H (7.0-18.0) mg/dL Creatinine 2.5 H (0.8-1.3) mg/dL Est Cr Clr Drug Dosing TNP Estimated GFR (MDRD) 29.6 ml/min Glucose 231 H (74-106) mg/dL POC Glucose 205 H (70-99) mg/dL Calcium 8.9 (8.5-10.1) mg/dL Troponin I 0.074 H* (0.000-0.056) ng/mL 02/11/21 Range/Units 12:39 WBC (4.0-11.0) K/uL RBC (4.50-5.90) M/uL Hgb (13.0-17.0) g/dL Hct (38.0-50.0) % MCV (80.0-98.0) fL MCH (27.0-32.0) pg MCHC (31.0-37.0) g/dL RDW Std Deviation (28.0-62.0) fl RDW Coeff of Nadia (11.0-15.0) % Plt Count (150-400) K/uL MPV (7.40-12.00) fL Neut % (Auto) (48.0-80.0) % Lymph % (Auto) (16.0-40.0) % [place] % (Auto) (0.0-15.0) % Eos % (Auto) (0.0-7.0) % Baso % (Auto) (0.0-1.5) % Neut # (Auto) (1.4-5.7) K/uL Lymph # (Auto) (0.6-2.4) K/uL [place] # (Auto) (0.0-0.8) K/uL Eos # (Auto) (0.0-0.7) K/uL Baso # (Auto) (0.0-0.1) K/uL Nucleated RBC % /100WBC Nucleated RBCs # K/uL Sodium (136-148) mmol/L Potassium (3.5-5.1) mmol/L Chloride (98-107) mmol/L Carbon Dioxide (21.0-32.0) mmol/L BUN (7.0-18.0) mg/dL Creatinine (0.8-1.3) mg/dL Est Cr Clr Drug Dosing Estimated GFR (MDRD) ml/min Glucose (74-106) mg/dL POC Glucose 204 H (70-99) mg/dL Calcium (8.5-10.1) mg/dL Troponin I (0.000-0.056) ng/mL Result Diagrams: 02/11/21 06:08 02/11/21 06:08 Sepsis Event Note - Evaluation Sepsis Screening Result: No Definite Risk - Focused Exam Vital Signs: Vital Signs Temp Resp BP BP Pulse Ox 02/11/21 18:00 14 140/81 97 02/11/21 17:00 14 80/55 L 97 02/11/21 16:00 36.2 C 14 79/61 L 96 02/11/21 15:00 14 92/68 96 02/11/21 14:00 14 106/64 97 02/11/21 13:00 14 104/81 97 02/11/21 12:00 36.4 C 14 148/88 H 97 02/11/21 11:00 15 122/55 L 99 02/11/21 10:00 17 119/75 97 02/11/21 09:00 19 141/59 H 100 02/11/21 08:58 141/59 H - Problem List & Annotations (1) Troponin I above reference range SNOMED Code(s): 219673465 Code(s): R77.8 - OTHER SPECIFIED ABNORMALITIES OF PLASMA PROTEINS Status: Acute Current Visit: Yes (2) Diabetes mellitus SNOMED Code(s): 90986406 Code(s): E11.9 - TYPE 2 DIABETES MELLITUS WITHOUT COMPLICATIONS Status: Acute Current Visit: Yes (3) Dehydration SNOMED Code(s): 14858287 Code(s): E86.0 - DEHYDRATION Status: Acute Current Visit: Yes (4) Dehydration with hypernatremia SNOMED Code(s): 677094138 Code(s): E86.0 - DEHYDRATION; E87.0 - HYPEROSMOLALITY AND HYPERNATREMIA Status: Acute Current Visit: Yes (5) Hyperlipemia SNOMED Code(s): 28667735 Code(s): E78.5 - HYPERLIPIDEMIA, UNSPECIFIED Status: Chronic Current Visit: Yes (6) RANCHO (acute kidney injury) SNOMED Code(s): 37598529, 91927710 Code(s): N17.9 - ACUTE KIDNEY FAILURE, UNSPECIFIED Status: Acute Current Visit: Yes (7) Hyperglycemia SNOMED Code(s): 60258686 Code(s): R73.9 - HYPERGLYCEMIA, UNSPECIFIED Status: Acute Current Visit: Yes (8) Hypertensive emergency SNOMED Code(s): 332549316771791 Code(s): I16.1 - HYPERTENSIVE EMERGENCY Status: Acute Current Visit: Yes (9) Weakness SNOMED Code(s): 27620394 Code(s): R53.1 - WEAKNESS Status: Acute Current Visit: Yes (10) Chronic kidney disease SNOMED Code(s): 312205977 Code(s): N18.9 - CHRONIC KIDNEY DISEASE, UNSPECIFIED Status: Chronic Current Visit: No (11) Hypertension SNOMED Code(s): 59565773 Code(s): I10 - ESSENTIAL (PRIMARY) HYPERTENSION Status: Acute Current Visit: No Qualifiers: Hypertension type: essential hypertension Qualified Code(s): I10 - Essential (primary) hypertension (12) Renal insufficiency SNOMED Code(s): 091602736, 342985305 Code(s): N28.9 - DISORDER OF KIDNEY AND URETER, UNSPECIFIED Status: Acute Current Visit: No - Problem List Review Problem List Initiated/Reviewed/Updated: Yes - My Orders Last 24 Hours: My Active Orders 02/10/21 21:00 atorvaSTATin [Lipitor] 40 mg PO BEDTIME 02/11/21 19:39 Transfer Patient (Change bed) [ADT] Routine 02/11/21 19:45 Sodium Chloride 0.9% [Normal Saline] 1,000 ml IV ASDIRECTED 02/12/21 05:11 BASIC METABOLIC PANEL,BMP [CHEM] AM CBC WITH AUTO DIFF [HEME] AM - Plan Plan:: 89 yo male admitted for dehydration, hyperglycemia, acute on chronic renal d isease, and hypertensive urgency. Dehydration/hypernatremia: will continue IV fluids at maintinance rate Hypertensive urgency: BP has improved on oral amlodipine, lisinopril hold due to RANCHO DM: on insulin diabetic diet and lantus increased to 8 at bedtime acute on chronic renal disease: on IV fluids and will trend creatinine Elevated troponin: likely due to hypertension, troponin has remained stable
[2021-02-11] MEDS: atorvaSTATin 40 MG Tab PO SCH (20:50)
[2021-02-11] MEDS: Insulin Glargine,Human Rec. Analog 100 Units/ML 3 ML Pen SUBCUT SCH (20:51)
[2021-02-11] MEDS: Sodium Chloride 0.9% 1,000 ML IV SCH (22:29)
[2021-02-12] MEDS: Heparin Sodium 5,000 Units/ML Vial SUBCUT SCH ×3 (03:30→19:36)
[2021-02-12 06:21] LABS: CARBON DIOXIDE,CO2 25.5 mmol/L (21.0-32.0); POTASSIUM,K 3.5 mmol/L (3.5-5.1)
[2021-02-12] MEDS: Insulin Aspart 100 Units/ML 3 ML Pen SUBCUT SCH ×3 (07:41→18:44)
[2021-02-12] MEDS: amLODIPine 5 MG Tab PO SCH (08:27)
[2021-02-12] MEDS: Clopidogrel 75 MG Tab PO SCH (08:27)
[2021-02-12] MEDS ORDERED: 50% Dextrose in Water 50 ML Syringe IV PRN (09:29)
[2021-02-12] MEDS ORDERED: Glucagon,Human Recombinant 1 MG Vial IM PRN (09:29)
--- NOTE | 2021-02-12 12:54 | PCM.PN ---
- General Info Date of Service: 02/12/21 Admission Dx/Problem (Free Text): Admission Diagnosis/Problem Admission Diagnosis/Problem Hypertension Subjective Update: seen at bedside, no acute distress, resting - Review of Systems General: Denies: Fever, Weakness, Fatigue Pulmonary: Denies: Shortness of Breath, Pleuritic Chest Pain Cardiovascular: Denies: Chest Pain, Palpitations Gastrointestinal: Denies: Abdominal Pain, Constipation, Decreased Appetite, Nausea Genitourinary: Denies: Dysuria, Frequency Neurological: Reports: Difficulty Walking, Weakness, Gait Disturbance - Patient Data Vitals - Most Recent: Last Vital Signs Temp 36.7 C 02/12/21 08:00 Pulse 84 02/10/21 07:13 Resp 20 02/12/21 08:00 BP 164/71 H 02/12/21 08:27 Pulse Ox 96 02/12/21 08:00 Weight - Most Recent: 58.604 kg I&O - Last 24 Hours: Intake & Output 02/11/21 02/12/21 02/12/21 22:59 06:59 14:59 Intake Total 1000 891 Output Total 2 350 Balance 998 541 Lab Results Last 24 Hours: Laboratory Results - last 24 hr 02/11/21 02/11/21 02/12/21 Range/Units 18:45 20:47 05:35 WBC 7.02 (4.0-11.0) K/uL RBC 4.54 (4.50-5.90) M/uL Hgb 11.0 L (13.0-17.0) g/dL Hct 32.7 L (38.0-50.0) % MCV 72.0 L (80.0-98.0) fL MCH 24.2 L (27.0-32.0) pg MCHC 33.6 (31.0-37.0) g/dL RDW Std Deviation 35.6 (28.0-62.0) fl RDW Coeff of Nadia 14 (11.0-15.0) % Plt Count 322 (150-400) K/uL MPV 10.50 (7.40-12.00) fL Neut % (Auto) 49.0 (48.0-80.0) % Lymph % (Auto) 41.3 H (16.0-40.0) % [place] % (Auto) 6.8 (0.0-15.0) % Eos % (Auto) 2.6 (0.0-7.0) % Baso % (Auto) 0.3 (0.0-1.5) % Neut # (Auto) 3.4 (1.4-5.7) K/uL Lymph # (Auto) 2.9 H (0.6-2.4) K/uL [place] # (Auto) 0.5 (0.0-0.8) K/uL Eos # (Auto) 0.2 (0.0-0.7) K/uL Baso # (Auto) 0.0 (0.0-0.1) K/uL Nucleated RBC % 0.0 /100WBC Nucleated RBCs # 0 K/uL Sodium (136-148) mmol/L Potassium (3.5-5.1) mmol/L Chloride (98-107) mmol/L Carbon Dioxide (21.0-32.0) mmol/L BUN (7.0-18.0) mg/dL Creatinine (0.8-1.3) mg/dL Est Cr Clr Drug Dosing mL/min Estimated GFR (MDRD) ml/min Glucose (74-106) mg/dL POC Glucose 224 H 182 H (70-99) mg/dL Calcium (8.5-10.1) mg/dL 02/12/21 02/12/21 02/12/21 Range/Units 05:35 06:35 06:51 WBC (4.0-11.0) K/uL RBC (4.50-5.90) M/uL Hgb (13.0-17.0) g/dL Hct (38.0-50.0) % MCV (80.0-98.0) fL MCH (27.0-32.0) pg MCHC (31.0-37.0) g/dL RDW Std Deviation (28.0-62.0) fl RDW Coeff of Nadia (11.0-15.0) % Plt Count (150-400) K/uL MPV (7.40-12.00) fL Neut % (Auto) (48.0-80.0) % Lymph % (Auto) (16.0-40.0) % [place] % (Auto) (0.0-15.0) % Eos % (Auto) (0.0-7.0) % Baso % (Auto) (0.0-1.5) % Neut # (Auto) (1.4-5.7) K/uL Lymph # (Auto) (0.6-2.4) K/uL [place] # (Auto) (0.0-0.8) K/uL Eos # (Auto) (0.0-0.7) K/uL Baso # (Auto) (0.0-0.1) K/uL Nucleated RBC % /100WBC Nucleated RBCs # K/uL Sodium 140 (136-148) mmol/L Potassium 3.5 (3.5-5.1) mmol/L Chloride 105 (98-107) mmol/L Carbon Dioxide 25.5 (21.0-32.0) mmol/L BUN 28 H (7.0-18.0) mg/dL Creatinine 2.5 H (0.8-1.3) mg/dL Est Cr Clr Drug Dosing 16.60 mL/min Estimated GFR (MDRD) 29.6 ml/min Glucose 71 L (74-106) mg/dL POC Glucose 71 70 (70-99) mg/dL Calcium 8.8 (8.5-10.1) mg/dL 02/12/21 02/12/21 Range/Units 08:26 12:04 WBC (4.0-11.0) K/uL RBC (4.50-5.90) M/uL Hgb (13.0-17.0) g/dL Hct (38.0-50.0) % MCV (80.0-98.0) fL MCH (27.0-32.0) pg MCHC (31.0-37.0) g/dL RDW Std Deviation (28.0-62.0) fl RDW Coeff of Nadia (11.0-15.0) % Plt Count (150-400) K/uL MPV (7.40-12.00) fL Neut % (Auto) (48.0-80.0) % Lymph % (Auto) (16.0-40.0) % [place] % (Auto) (0.0-15.0) % Eos % (Auto) (0.0-7.0) % Baso % (Auto) (0.0-1.5) % Neut # (Auto) (1.4-5.7) K/uL Lymph # (Auto) (0.6-2.4) K/uL [place] # (Auto) (0.0-0.8) K/uL Eos # (Auto) (0.0-0.7) K/uL Baso # (Auto) (0.0-0.1) K/uL Nucleated RBC % /100WBC Nucleated RBCs # K/uL Sodium (136-148) mmol/L Potassium (3.5-5.1) mmol/L Chloride (98-107) mmol/L Carbon Dioxide (21.0-32.0) mmol/L BUN (7.0-18.0) mg/dL Creatinine (0.8-1.3) mg/dL Est Cr Clr Drug Dosing mL/min Estimated GFR (MDRD) ml/min Glucose (74-106) mg/dL POC Glucose 154 H 182 H (70-99) mg/dL Calcium (8.5-10.1) mg/dL Med Orders - Current: Current Medications Amlodipine Besylate (Amlodipine 5 Mg Tab) 10 mg PO DAILY [facility] Last Admin: 02/12/21 08:27 Dose: 10 mg Documented by: Atorvastatin Calcium (Atorvastatin 40 Mg Tab) 40 mg PO BEDTIME [facility] Last Admin: 02/11/21 20:50 Dose: 40 mg Documented by: Clopidogrel Bisulfate (Clopidogrel 75 Mg Tab) 75 mg PO DAILY [facility] Last Admin: 02/12/21 08:27 Dose: 75 mg Documented by: Dextrose/Water (50% Dextrose In Water 50 Ml Syringe) 50 ml IV ASDIRECTED PRN PRN Reason: Hypoglycemia Glucagon (Glucagon,Human Recombinant 1 Mg Vial) 1 mg IM ASDIRECTED PRN PRN Reason: Hypoglycemia Heparin Sodium (Porcine) (Heparin Sodium 5,000 Units/Ml Vial) 5,000 units SUBCUT Q8H [facility] Last Admin: 02/12/21 12:20 Dose: 5,000 units Documented by: Sodium Chloride (Normal Saline) 1,000 mls @ 50 mls/hr IV ASDIRECTED [facility] Last Admin: 02/11/21 22:29 Dose: 50 mls/hr Documented by: Insulin Aspart (Insulin Aspart 100 Units/Ml 3 Ml Pen) 0 unit SUBCUT TIDAC [facility]; Protocol Last Admin: 02/12/21 07:41 Dose: Not Given Documented by: Insulin Glargine (Insulin Glargine,Human Rec. Analog 100 Units/Ml 3 Ml Pen) 8 units SUBCUT BEDTIME [facility] Last Admin: 02/11/21 20:51 Dose: 8 units Documented by: Lisinopril (Lisinopril 5 Mg Tab) 5 mg PO DAILY [facility] Last Admin: 02/10/21 09:43 Dose: 5 mg Documented by: Sodium Chloride (Sodium Chloride 0.9% 10 Ml Syringe) 10 ml FLUSH ASDIRECTED PRN PRN Reason: Keep Vein Open Last Admin: 02/10/21 01:01 Dose: 10 ml Documented by: Sodium Chloride (Sodium Chloride 0.9% 2.5 Ml Syringe) 2.5 ml FLUSH ASDIRECTED PRN PRN Reason: Keep Vein Open Last Admin: 02/10/21 01:02 Dose: 2.5 ml Documented by: Discontinued Medications Aspirin (Aspirin 81 Mg Tab.Chew) 324 mg PO ONETIME ONE Stop: 02/10/21 09:45 Last Admin: 02/10/21 09:49 Dose: 324 mg Documented by: Clonidine HCl (Clonidine 0.1 Mg Tab) 0.1 mg PO ONETIME ONE Stop: 02/10/21 05:56 Last Admin: 02/10/21 06:09 Dose: 0.1 mg Documented by: Dextrose/Water (50% Dextrose In Water 50 Ml Syringe) 50 ml IV ASDIRECTED PRN PRN Reason: Hypoglycemia Dextrose/Water (50% Dextrose In Water 50 Ml Syringe) 50 ml IV ASDIRECTED PRN PRN Reason: Hypoglycemia Glucagon (Glucagon,Human Recombinant 1 Mg Vial) 1 mg IM ASDIRECTED PRN PRN Reason: Hypoglycemia Glucagon (Glucagon,Human Recombinant 1 Mg Vial) 1 mg IM ASDIRECTED PRN PRN Reason: Hypoglycemia Hydralazine HCl (Hydralazine 20 Mg/Ml Sdv) 10 mg IVPUSH ONETIME ONE Stop: 02/10/21 01:28 Last Admin: 02/10/21 01:34 Dose: 10 mg Documented by: Sodium Chloride (Normal Saline) 1,000 mls @ 1,000 mls/hr IV .Bolus ONE Stop: 02/10/21 01:46 Last Admin: 02/10/21 01:01 Dose: 1,000 mls/hr Documented by: Sodium Chloride (Sodium Chloride 0.45%) 1,000 mls @ 125 mls/hr IV ASDIRECTED [place] Stop: 02/10/21 15:59 Insulin Glargine (Insulin Glargine,Human Rec. Analog 100 Units/Ml 3 Ml Pen) 5 units SUBCUT BEDTIME [facility] Last Admin: 02/10/21 20:29 Dose: 5 units Documented by: Insulin Human Regular (Insulin Regular, Human 100 Units/Ml 10 Ml Vial) 10 unit IVPUSH ONETIME ONE; Protocol Stop: 02/10/21 01:20 Last Admin: 02/10/21 01:27 Dose: 10 units Documented by: Metoprolol Tartrate (Metoprolol Tartrate 25 Mg Tab) 25 mg PO Q12H [facility] - Exam General: Alert, Oriented, Cooperative, No Acute Distress Lungs: Clear to Auscultation, Normal Respiratory Effort Cardiovascular: Regular Rate, Regular Rhythm GI/Abdominal Exam: Normal Bowel Sounds, Soft, Non-Tender Extremities: Normal Inspection, Normal Range of Motion - Patient Data Lab Results Last 24 hrs: Laboratory Results - last 24 hr 02/11/21 02/11/21 02/12/21 Range/Units 18:45 20:47 05:35 WBC 7.02 (4.0-11.0) K/uL RBC 4.54 (4.50-5.90) M/uL Hgb 11.0 L (13.0-17.0) g/dL Hct 32.7 L (38.0-50.0) % MCV 72.0 L (80.0-98.0) fL MCH 24.2 L (27.0-32.0) pg MCHC 33.6 (31.0-37.0) g/dL RDW Std Deviation 35.6 (28.0-62.0) fl RDW Coeff of Nadia 14 (11.0-15.0) % Plt Count 322 (150-400) K/uL MPV 10.50 (7.40-12.00) fL Neut % (Auto) 49.0 (48.0-80.0) % Lymph % (Auto) 41.3 H (16.0-40.0) % [place] % (Auto) 6.8 (0.0-15.0) % Eos % (Auto) 2.6 (0.0-7.0) % Baso % (Auto) 0.3 (0.0-1.5) % Neut # (Auto) 3.4 (1.4-5.7) K/uL Lymph # (Auto) 2.9 H (0.6-2.4) K/uL [place] # (Auto) 0.5 (0.0-0.8) K/uL Eos # (Auto) 0.2 (0.0-0.7) K/uL Baso # (Auto) 0.0 (0.0-0.1) K/uL Nucleated RBC % 0.0 /100WBC Nucleated RBCs # 0 K/uL Sodium (136-148) mmol/L Potassium (3.5-5.1) mmol/L Chloride (98-107) mmol/L Carbon Dioxide (21.0-32.0) mmol/L BUN (7.0-18.0) mg/dL Creatinine (0.8-1.3) mg/dL Est Cr Clr Drug Dosing mL/min Estimated GFR (MDRD) ml/min Glucose (74-106) mg/dL POC Glucose 224 H 182 H (70-99) mg/dL Calcium (8.5-10.1) mg/dL 02/12/21 02/12/21 02/12/21 Range/Units 05:35 06:35 06:51 WBC (4.0-11.0) K/uL RBC (4.50-5.90) M/uL Hgb (13.0-17.0) g/dL Hct (38.0-50.0) % MCV (80.0-98.0) fL MCH (27.0-32.0) pg MCHC (31.0-37.0) g/dL RDW Std Deviation (28.0-62.0) fl RDW Coeff of Nadia (11.0-15.0) % Plt Count (150-400) K/uL MPV (7.40-12.00) fL Neut % (Auto) (48.0-80.0) % Lymph % (Auto) (16.0-40.0) % [place] % (Auto) (0.0-15.0) % Eos % (Auto) (0.0-7.0) % Baso % (Auto) (0.0-1.5) % Neut # (Auto) (1.4-5.7) K/uL Lymph # (Auto) (0.6-2.4) K/uL [place] # (Auto) (0.0-0.8) K/uL Eos # (Auto) (0.0-0.7) K/uL Baso # (Auto) (0.0-0.1) K/uL Nucleated RBC % /100WBC Nucleated RBCs # K/uL Sodium 140 (136-148) mmol/L Potassium 3.5 (3.5-5.1) mmol/L Chloride 105 (98-107) mmol/L Carbon Dioxide 25.5 (21.0-32.0) mmol/L BUN 28 H (7.0-18.0) mg/dL Creatinine 2.5 H (0.8-1.3) mg/dL Est Cr Clr Drug Dosing 16.60 mL/min Estimated GFR (MDRD) 29.6 ml/min Glucose 71 L (74-106) mg/dL POC Glucose 71 70 (70-99) mg/dL Calcium 8.8 (8.5-10.1) mg/dL 02/12/21 02/12/21 Range/Units 08:26 12:04 WBC (4.0-11.0) K/uL RBC (4.50-5.90) M/uL Hgb (13.0-17.0) g/dL Hct (38.0-50.0) % MCV (80.0-98.0) fL MCH (27.0-32.0) pg MCHC (31.0-37.0) g/dL RDW Std Deviation (28.0-62.0) fl RDW Coeff of Nadia (11.0-15.0) % Plt Count (150-400) K/uL MPV (7.40-12.00) fL Neut % (Auto) (48.0-80.0) % Lymph % (Auto) (16.0-40.0) % [place] % (Auto) (0.0-15.0) % Eos % (Auto) (0.0-7.0) % Baso % (Auto) (0.0-1.5) % Neut # (Auto) (1.4-5.7) K/uL Lymph # (Auto) (0.6-2.4) K/uL [place] # (Auto) (0.0-0.8) K/uL Eos # (Auto) (0.0-0.7) K/uL Baso # (Auto) (0.0-0.1) K/uL Nucleated RBC % /100WBC Nucleated RBCs # K/uL Sodium (136-148) mmol/L Potassium (3.5-5.1) mmol/L Chloride (98-107) mmol/L Carbon Dioxide (21.0-32.0) mmol/L BUN (7.0-18.0) mg/dL Creatinine (0.8-1.3) mg/dL Est Cr Clr Drug Dosing mL/min Estimated GFR (MDRD) ml/min Glucose (74-106) mg/dL POC Glucose 154 H 182 H (70-99) mg/dL Calcium (8.5-10.1) mg/dL Result Diagrams: 02/12/21 05:35 02/12/21 05:35 Sepsis Event Note - Evaluation Sepsis Screening Result: No Definite Risk - Focused Exam Vital Signs: Vital Signs Temp Resp BP BP Pulse Ox 02/12/21 08:27 164/71 H 02/12/21 08:00 36.7 C 20 164/71 H 96 02/12/21 03:47 36.6 C 20 136/83 100 - Problem List & Annotations (1) Ambulatory dysfunction SNOMED Code(s): 909373710 Code(s): R26.2 - DIFFICULTY IN WALKING, NOT ELSEWHERE CLASSIFIED Status: Acute Current Visit: Yes (2) RANCHO (acute kidney injury) SNOMED Code(s): 80170750, 69270603 Code(s): N17.9 - ACUTE KIDNEY FAILURE, UNSPECIFIED Status: Acute Current Visit: Yes (3) Diabetes mellitus SNOMED Code(s): 50065688 Code(s): E11.9 - TYPE 2 DIABETES MELLITUS WITHOUT COMPLICATIONS Status: Acute Current Visit: Yes (4) Hypertensive emergency SNOMED Code(s): 046946388897469 Code(s): I16.1 - HYPERTENSIVE EMERGENCY Status: Acute Current Visit: Yes (5) Troponin I above reference range SNOMED Code(s): 420040742 Code(s): R77.8 - OTHER SPECIFIED ABNORMALITIES OF PLASMA PROTEINS Status: Acute Current Visit: Yes (6) Weakness SNOMED Code(s): 86798291 Code(s): R53.1 - WEAKNESS Status: Acute Current Visit: Yes - Problem List Review Problem List Initiated/Reviewed/Updated: Yes - My Orders Last 24 Hours: My Active Orders 02/12/21 10:22 [facility] Assessment [RC] Q4H 02/12/21 10:23 PT Evaluation and Treatment [CONS] Routine - Plan Plan:: 89 yo male admitted for dehydration, hyperglycemia, acute on chronic renal disease, and hypertensive urgency. Dehydration/hypernatremia: will continue IV fluids at maintenance rate Hypertensive urgency: BP has improved on oral amlodipine, resime lisinopril DM: on insulin diabetic diet and lantus increased to 8 at bedtime acute on chronic renal disease: on IV fluids and will trend creatinine, creatinine appeares to have reached new baseline, likely CKD due to uncontrolled HTN Elevated troponin: likely due to hypertension, troponin has remained stable PT consult
[2021-02-12] MEDS: Sodium Chloride 0.9% 1,000 ML IV SCH (17:45)
[2021-02-12] MEDS: Folic Acid 1 MG Tab PO SCH (17:47)
[2021-02-12] MEDS: atorvaSTATin 40 MG Tab PO SCH (20:06)
[2021-02-12] MEDS: Thiamine 100 MG Tab PO SCH (20:06)
[2021-02-12] MEDS: Insulin Glargine,Human Rec. Analog 100 Units/ML 3 ML Pen SUBCUT SCH (20:06)
[2021-02-12] MEDS ORDERED: atorvaSTATin 40 MG Tab PO SCH (21:00)
[2021-02-13] MEDS: Heparin Sodium 5,000 Units/ML Vial SUBCUT SCH ×3 (04:10→20:21)
[2021-02-13 06:07] LABS: POTASSIUM,K 4.4 mmol/L (3.5-5.1)
[2021-02-13] MEDS: amLODIPine 5 MG Tab PO SCH (08:13)
[2021-02-13] MEDS: Lisinopril/Hydrochlorothiazide 10-12.5 MG Tab PO SCH (08:14)
[2021-02-13] MEDS: Folic Acid 1 MG Tab PO SCH (08:14)
[2021-02-13] MEDS: Clopidogrel 75 MG Tab PO SCH (08:14)
[2021-02-13] MEDS: Insulin Aspart 100 Units/ML 3 ML Pen SUBCUT SCH ×3 (08:53→17:13)
[2021-02-13] MEDS ORDERED: Insulin Glargine,Human Rec. Analog 100 Units/ML 3 ML Pen SUBCUT SCH (09:00)
--- NOTE | 2021-02-13 12:34 | PCM.PN ---
- General Info Date of Service: 02/13/21 Admission Dx/Problem (Free Text): Admission Diagnosis/Problem Admission Diagnosis/Problem Hypertension Subjective Update: seen at bedside, no acute distress, resting, unsteady on his feet Functional Status: Reports: Pain Controlled, Tolerating Diet, Urinating - Review of Systems General: Denies: Fever, Weakness Pulmonary: Denies: Shortness of Breath, Pleuritic Chest Pain Cardiovascular: Denies: Chest Pain, Palpitations Gastrointestinal: Denies: Abdominal Pain, Constipation, Decreased Appetite Genitourinary: Denies: Dysuria, Frequency, Burning Neurological: Reports: Difficulty Walking, Weakness, Gait Disturbance - Patient Data Vitals - Most Recent: Last Vital Signs Temp 36.8 C 02/13/21 08:00 Pulse 84 02/10/21 07:13 Resp 14 02/13/21 08:00 BP 177/69 H 02/13/21 08:13 Pulse Ox 97 02/13/21 08:00 Weight - Most Recent: 58.604 kg I&O - Last 24 Hours: Intake & Output 02/12/21 02/13/21 02/13/21 22:59 06:59 14:59 Intake Total 1200 978 Output Total 451 1050 Balance 749 -72 Lab Results Last 24 Hours: Laboratory Results - last 24 hr 02/12/21 02/12/21 02/13/21 Range/Units 18:02 20:12 05:05 WBC 7.29 (4.0-11.0) K/uL RBC 5.04 (4.50-5.90) M/uL Hgb 11.9 L (13.0-17.0) g/dL Hct 36.7 L (38.0-50.0) % MCV 72.8 L (80.0-98.0) fL MCH 23.6 L (27.0-32.0) pg MCHC 32.4 (31.0-37.0) g/dL RDW Std Deviation 36.1 (28.0-62.0) fl RDW Coeff of Nadia 14 (11.0-15.0) % Plt Count 323 (150-400) K/uL MPV 11.00 (7.40-12.00) fL Neut % (Auto) 61.0 (48.0-80.0) % Lymph % (Auto) 29.1 (16.0-40.0) % Sierra % (Auto) 7.5 (0.0-15.0) % Eos % (Auto) 2.1 (0.0-7.0) % Baso % (Auto) 0.3 (0.0-1.5) % Neut # (Auto) 4.5 (1.4-5.7) K/uL Lymph # (Auto) 2.1 (0.6-2.4) K/uL Sierra # (Auto) 0.6 (0.0-0.8) K/uL Eos # (Auto) 0.2 (0.0-0.7) K/uL Baso # (Auto) 0.0 (0.0-0.1) K/uL Nucleated RBC % 0.0 /100WBC Nucleated RBCs # 0 K/uL Sodium (136-148) mmol/L Potassium (3.5-5.1) mmol/L Chloride (98-107) mmol/L Carbon Dioxide (21.0-32.0) mmol/L BUN (7.0-18.0) mg/dL Creatinine (0.8-1.3) mg/dL Est Cr Clr Drug Dosing mL/min Estimated GFR (MDRD) ml/min Glucose (74-106) mg/dL POC Glucose 119 H 256 H (70-99) mg/dL Calcium (8.5-10.1) mg/dL Phosphorus (2.6-4.7) mg/dL Magnesium (1.8-2.4) mg/dL 02/13/21 02/13/21 02/13/21 Range/Units 05:05 06:43 08:51 WBC (4.0-11.0) K/uL RBC (4.50-5.90) M/uL Hgb (13.0-17.0) g/dL Hct (38.0-50.0) % MCV (80.0-98.0) fL MCH (27.0-32.0) pg MCHC (31.0-37.0) g/dL RDW Std Deviation (28.0-62.0) fl RDW Coeff of Nadia (11.0-15.0) % Plt Count (150-400) K/uL MPV (7.40-12.00) fL Neut % (Auto) (48.0-80.0) % Lymph % (Auto) (16.0-40.0) % Sierra % (Auto) (0.0-15.0) % Eos % (Auto) (0.0-7.0) % Baso % (Auto) (0.0-1.5) % Neut # (Auto) (1.4-5.7) K/uL Lymph # (Auto) (0.6-2.4) K/uL Sierra # (Auto) (0.0-0.8) K/uL Eos # (Auto) (0.0-0.7) K/uL Baso # (Auto) (0.0-0.1) K/uL Nucleated RBC % /100WBC Nucleated RBCs # K/uL Sodium 140 (136-148) mmol/L Potassium 4.4 (3.5-5.1) mmol/L Chloride 104 (98-107) mmol/L Carbon Dioxide 26.0 (21.0-32.0) mmol/L BUN 28 H (7.0-18.0) mg/dL Creatinine 2.4 H (0.8-1.3) mg/dL Est Cr Clr Drug Dosing 17.30 mL/min Estimated GFR (MDRD) 31.0 ml/min Glucose 307 H (74-106) mg/dL POC Glucose 250 H 190 H (70-99) mg/dL Calcium 8.9 (8.5-10.1) mg/dL Phosphorus 3.5 (2.6-4.7) mg/dL Magnesium 1.9 (1.8-2.4) mg/dL Med Orders - Current: Current Medications Amlodipine Besylate (Amlodipine 5 Mg Tab) 10 mg PO DAILY [facility] Last Admin: 02/13/21 08:13 Dose: 10 mg Documented by: Atorvastatin Calcium (Atorvastatin 40 Mg Tab) 40 mg PO BEDTIME [facility] Last Admin: 02/12/21 20:06 Dose: 40 mg Documented by: Clopidogrel Bisulfate (Clopidogrel 75 Mg Tab) 75 mg PO DAILY [facility] Last Admin: 02/13/21 08:14 Dose: 75 mg Documented by: Dextrose/Water (50% Dextrose In Water 50 Ml Syringe) 50 ml IV ASDIRECTED PRN PRN Reason: Hypoglycemia Folic Acid (Folic Acid 1 Mg Tab) 1 mg PO DAILY [facility] Last Admin: 02/13/21 08:14 Dose: 1 mg Documented by: Glucagon (Glucagon,Human Recombinant 1 Mg Vial) 1 mg IM ASDIRECTED PRN PRN Reason: Hypoglycemia Lisinopril/HCTZ (Lisinopril/Hydrochlorothiazide 10-12.5 Mg Tab) 1 tab PO DAILY [facility] Last Admin: 02/13/21 08:14 Dose: 1 tab Documented by: Heparin Sodium (Porcine) (Heparin Sodium 5,000 Units/Ml Vial) 5,000 units SUBCUT Q8H [facility] Last Admin: 02/13/21 04:10 Dose: 5,000 units Documented by: Sodium Chloride (Normal Saline) 1,000 mls @ 50 mls/hr IV ASDIRECTED [facility] Last Admin: 02/12/21 17:45 Dose: 50 mls/hr Documented by: Insulin Aspart (Insulin Aspart 100 Units/Ml 3 Ml Pen) 0 unit SUBCUT TIDAC [facility]; Protocol Last Admin: 02/13/21 08:53 Dose: 1 units Documented by: Insulin Glargine (Insulin Glargine,Human Rec. Analog 100 Units/Ml 3 Ml Pen) 8 units SUBCUT BEDTIME [facility] Last Admin: 02/12/21 20:06 Dose: 8 units Documented by: Sodium Chloride (Sodium Chloride 0.9% 10 Ml Syringe) 10 ml FLUSH ASDIRECTED PRN PRN Reason: Keep Vein Open Last Admin: 02/10/21 01:01 Dose: 10 ml Documented by: Sodium Chloride (Sodium Chloride 0.9% 2.5 Ml Syringe) 2.5 ml FLUSH ASDIRECTED PRN PRN Reason: Keep Vein Open Last Admin: 02/10/21 01:02 Dose: 2.5 ml Documented by: Thiamine HCl (Thiamine 100 Mg Tab) 100 mg PO BEDTIME [facility] Last Admin: 02/12/21 20:06 Dose: 100 mg Documented by: Discontinued Medications Aspirin (Aspirin 81 Mg Tab.Chew) 324 mg PO ONETIME ONE Stop: 02/10/21 09:45 Last Admin: 02/10/21 09:49 Dose: 324 mg Documented by: Clonidine HCl (Clonidine 0.1 Mg Tab) 0.1 mg PO ONETIME ONE Stop: 02/10/21 05:56 Last Admin: 02/10/21 06:09 Dose: 0.1 mg Documented by: Dextrose/Water (50% Dextrose In Water 50 Ml Syringe) 50 ml IV ASDIRECTED PRN PRN Reason: Hypoglycemia Dextrose/Water (50% Dextrose In Water 50 Ml Syringe) 50 ml IV ASDIRECTED PRN PRN Reason: Hypoglycemia Glucagon (Glucagon,Human Recombinant 1 Mg Vial) 1 mg IM ASDIRECTED PRN PRN Reason: Hypoglycemia Glucagon (Glucagon,Human Recombinant 1 Mg Vial) 1 mg IM ASDIRECTED PRN PRN Reason: Hypoglycemia Hydralazine HCl (Hydralazine 20 Mg/Ml Sdv) 10 mg IVPUSH ONETIME ONE Stop: 02/10/21 01:28 Last Admin: 02/10/21 01:34 Dose: 10 mg Documented by: Sodium Chloride (Normal Saline) 1,000 mls @ 1,000 mls/hr IV .Bolus ONE Stop: 02/10/21 01:46 Last Admin: 02/10/21 01:01 Dose: 1,000 mls/hr Documented by: Sodium Chloride (Sodium Chloride 0.45%) 1,000 mls @ 125 mls/hr IV ASDIRECTED [facility] Stop: 02/10/21 15:59 Insulin Glargine (Insulin Glargine,Human Rec. Analog 100 Units/Ml 3 Ml Pen) 5 units SUBCUT BEDTIME [facility] Last Admin: 02/10/21 20:29 Dose: 5 units Documented by: Insulin Human Regular (Insulin Regular, Human 100 Units/Ml 10 Ml Vial) 10 unit IVPUSH ONETIME ONE; Protocol Stop: 02/10/21 01:20 Last Admin: 02/10/21 01:27 Dose: 10 units Documented by: Lisinopril (Lisinopril 5 Mg Tab) 5 mg PO DAILY [facility] Last Admin: 02/10/21 09:43 Dose: 5 mg Documented by: Metoprolol Tartrate (Metoprolol Tartrate 25 Mg Tab) 25 mg PO Q12H [facility] - Exam General: Alert, Oriented Neck: Supple Lungs: Clear to Auscultation, Normal Respiratory Effort Cardiovascular: Regular Rate, Regular Rhythm GI/Abdominal Exam: Normal Bowel Sounds, Soft, Non-Tender Back Exam: Normal Inspection, Full Range of Motion Extremities: Normal Inspection Neurological: No New Focal Deficit, Reflexes Equal Bilateral, Sensation Intact. No: Normal Gait Psy/Mental Status: Normal Affect, Normal Mood - Patient Data Lab Results Last 24 hrs: Laboratory Results - last 24 hr 02/12/21 02/12/21 02/13/21 Range/Units 18:02 20:12 05:05 WBC 7.29 (4.0-11.0) K/uL RBC 5.04 (4.50-5.90) M/uL Hgb 11.9 L (13.0-17.0) g/dL Hct 36.7 L (38.0-50.0) % MCV 72.8 L (80.0-98.0) fL MCH 23.6 L (27.0-32.0) pg MCHC 32.4 (31.0-37.0) g/dL RDW Std Deviation 36.1 (28.0-62.0) fl RDW Coeff of Nadia 14 (11.0-15.0) % Plt Count 323 (150-400) K/uL MPV 11.00 (7.40-12.00) fL Neut % (Auto) 61.0 (48.0-80.0) % Lymph % (Auto) 29.1 (16.0-40.0) % Sierra % (Auto) 7.5 (0.0-15.0) % Eos % (Auto) 2.1 (0.0-7.0) % Baso % (Auto) 0.3 (0.0-1.5) % Neut # (Auto) 4.5 (1.4-5.7) K/uL Lymph # (Auto) 2.1 (0.6-2.4) K/uL Sierra # (Auto) 0.6 (0.0-0.8) K/uL Eos # (Auto) 0.2 (0.0-0.7) K/uL Baso # (Auto) 0.0 (0.0-0.1) K/uL Nucleated RBC % 0.0 /100WBC Nucleated RBCs # 0 K/uL Sodium (136-148) mmol/L Potassium (3.5-5.1) mmol/L Chloride (98-107) mmol/L Carbon Dioxide (21.0-32.0) mmol/L BUN (7.0-18.0) mg/dL Creatinine (0.8-1.3) mg/dL Est Cr Clr Drug Dosing mL/min Estimated GFR (MDRD) ml/min Glucose (74-106) mg/dL POC Glucose 119 H 256 H (70-99) mg/dL Calcium (8.5-10.1) mg/dL Phosphorus (2.6-4.7) mg/dL Magnesium (1.8-2.4) mg/dL 02/13/21 02/13/21 02/13/21 Range/Units 05:05 06:43 08:51 WBC (4.0-11.0) K/uL RBC (4.50-5.90) M/uL Hgb (13.0-17.0) g/dL Hct (38.0-50.0) % MCV (80.0-98.0) fL MCH (27.0-32.0) pg MCHC (31.0-37.0) g/dL RDW Std Deviation (28.0-62.0) fl RDW Coeff of Nadia (11.0-15.0) % Plt Count (150-400) K/uL MPV (7.40-12.00) fL Neut % (Auto) (48.0-80.0) % Lymph % (Auto) (16.0-40.0) % Sierra % (Auto) (0.0-15.0) % Eos % (Auto) (0.0-7.0) % Baso % (Auto) (0.0-1.5) % Neut # (Auto) (1.4-5.7) K/uL Lymph # (Auto) (0.6-2.4) K/uL Sierra # (Auto) (0.0-0.8) K/uL Eos # (Auto) (0.0-0.7) K/uL Baso # (Auto) (0.0-0.1) K/uL Nucleated RBC % /100WBC Nucleated RBCs # K/uL Sodium 140 (136-148) mmol/L Potassium 4.4 (3.5-5.1) mmol/L Chloride 104 (98-107) mmol/L Carbon Dioxide 26.0 (21.0-32.0) mmol/L BUN 28 H (7.0-18.0) mg/dL Creatinine 2.4 H (0.8-1.3) mg/dL Est Cr Clr Drug Dosing 17.30 mL/min Estimated GFR (MDRD) 31.0 ml/min Glucose 307 H (74-106) mg/dL POC Glucose 250 H 190 H (70-99) mg/dL Calcium 8.9 (8.5-10.1) mg/dL Phosphorus 3.5 (2.6-4.7) mg/dL Magnesium 1.9 (1.8-2.4) mg/dL Result Diagrams: 02/13/21 05:05 02/13/21 05:05 Sepsis Event Note - Evaluation Sepsis Screening Result: No Definite Risk - Focused Exam Vital Signs: Vital Signs Temp Resp BP BP Pulse Ox 02/13/21 08:13 177/69 H 02/13/21 08:00 36.8 C 14 177/96 H 97 02/13/21 04:00 18 176/91 H 98 - Problem List & Annotations (1) Ambulatory dysfunction SNOMED Code(s): 415700129 Code(s): R26.2 - DIFFICULTY IN WALKING, NOT ELSEWHERE CLASSIFIED Status: Acute Current Visit: Yes (2) RANCHO (acute kidney injury) SNOMED Code(s): 02004492, 52108936 Code(s): N17.9 - ACUTE KIDNEY FAILURE, UNSPECIFIED Status: Acute Current Visit: Yes (3) Diabetes mellitus SNOMED Code(s): 67951868 Code(s): E11.9 - TYPE 2 DIABETES MELLITUS WITHOUT COMPLICATIONS Status: Acute Current Visit: Yes (4) Hypertensive emergency SNOMED Code(s): 398365268444440 Code(s): I16.1 - HYPERTENSIVE EMERGENCY Status: Acute Current Visit: Yes (5) Troponin I above reference range SNOMED Code(s): 361933063 Code(s): R77.8 - OTHER SPECIFIED ABNORMALITIES OF PLASMA PROTEINS Status: Acute Current Visit: Yes (6) Weakness SNOMED Code(s): 74795674 Code(s): R53.1 - WEAKNESS Status: Acute Current Visit: Yes - Problem List Review Problem List Initiated/Reviewed/Updated: Yes - My Orders Last 24 Hours: My Active Orders 02/12/21 17:00 Folic Acid 1 mg PO DAILY 02/12/21 21:00 Thiamine [Vitamin B-1] 100 mg PO BEDTIME 02/13/21 09:00 Lisinopril/Hydrochlorothiazide [Lisinopril-HCTZ 10-12.5 MG] 1 tab PO DAILY - Plan Plan:: 89 yo male admitted for dehydration, hyperglycemia, acute on chronic renal disease, and hypertensive urgency. 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 They also requested social work help to help "transfer medicare insurance from a different state to [place]" as he is unable to get his meds without that.
[2021-02-13] MEDS: Thiamine 100 MG Tab PO SCH (20:17)
[2021-02-13] MEDS: atorvaSTATin 40 MG Tab PO SCH (20:17)
[2021-02-13] MEDS: Insulin Glargine,Human Rec. Analog 100 Units/ML 3 ML Pen SUBCUT SCH (20:21)
[2021-02-14] MEDS: Heparin Sodium 5,000 Units/ML Vial SUBCUT SCH ×3 (03:37→19:30)
[2021-02-14 06:11] LABS: CARBON DIOXIDE,CO2 27.3 mmol/L (21.0-32.0); POTASSIUM,K 3.9 mmol/L (3.5-5.1)
[2021-02-14] MEDS: Insulin Aspart 100 Units/ML 3 ML Pen SUBCUT SCH ×3 (06:51→17:59)
[2021-02-14] MEDS: Clopidogrel 75 MG Tab PO SCH (09:06)
[2021-02-14] MEDS: amLODIPine 5 MG Tab PO SCH (09:06)
[2021-02-14] MEDS: Folic Acid 1 MG Tab PO SCH (09:06)
[2021-02-14] MEDS: Lisinopril/Hydrochlorothiazide 10-12.5 MG Tab PO SCH (09:07)
--- NOTE | 2021-02-14 11:12 | PCM.PN ---
- General Info Date of Service: 02/14/21 Admission Dx/Problem (Free Text): Admission Diagnosis/Problem Admission Diagnosis/Problem Hypertension Subjective Update: Reports he is doing well today. Denies any chest pain. No family at bedside as of yet. Will have patient see PT today and get medication coverage figured out with case management/social work Functional Status: Reports: Pain Controlled, Tolerating Diet, Ambulating (With assistance), Urinating - Review of Systems General: Reports: Weakness (Generalized) Pulmonary: Reports: No Symptoms. Denies: Shortness of Breath Cardiovascular: Reports: No Symptoms. Denies: Chest Pain Gastrointestinal: Reports: No Symptoms. Denies: Abdominal Pain, Nausea, Vomiting Genitourinary: Reports: No Symptoms Musculoskeletal: Reports: No Symptoms Skin: Reports: No Symptoms Neurological: Reports: No Symptoms Psychiatric: Reports: No Symptoms - Patient Data Vitals - Most Recent: Last Vital Signs Temp 98.1 F 02/14/21 09:04 Pulse 82 02/14/21 03:38 Resp 14 02/14/21 09:04 BP 138/81 02/14/21 09:06 Pulse Ox 96 02/14/21 09:04 Weight - Most Recent: 58.604 kg I&O - Last 24 Hours: Intake & Output 02/13/21 02/14/21 02/14/21 22:59 06:59 14:59 Intake Total 1000 650 Output Total 4 550 Balance 996 100 Lab Results Last 24 Hours: Laboratory Results - last 24 hr 02/13/21 02/13/21 02/13/21 Range/Units 12:38 17:11 20:20 WBC (4.0-11.0) K/uL RBC (4.50-5.90) M/uL Hgb (13.0-17.0) g/dL Hct (38.0-50.0) % MCV (80.0-98.0) fL MCH (27.0-32.0) pg MCHC (31.0-37.0) g/dL RDW Std Deviation (28.0-62.0) fl RDW Coeff of Nadia (11.0-15.0) % Plt Count (150-400) K/uL MPV (7.40-12.00) fL Neut % (Auto) (48.0-80.0) % Lymph % (Auto) (16.0-40.0) % Levy % (Auto) (0.0-15.0) % Eos % (Auto) (0.0-7.0) % Baso % (Auto) (0.0-1.5) % Neut # (Auto) (1.4-5.7) K/uL Lymph # (Auto) (0.6-2.4) K/uL Levy # (Auto) (0.0-0.8) K/uL Eos # (Auto) (0.0-0.7) K/uL Baso # (Auto) (0.0-0.1) K/uL Nucleated RBC % /100WBC Nucleated RBCs # K/uL Sodium (136-148) mmol/L Potassium (3.5-5.1) mmol/L Chloride (98-107) mmol/L Carbon Dioxide (21.0-32.0) mmol/L BUN (7.0-18.0) mg/dL Creatinine (0.8-1.3) mg/dL Est Cr Clr Drug Dosing mL/min Estimated GFR (MDRD) ml/min Glucose (74-106) mg/dL POC Glucose 359 H 399 H 211 H (70-99) mg/dL Calcium (8.5-10.1) mg/dL Phosphorus (2.6-4.7) mg/dL Magnesium (1.8-2.4) mg/dL 02/14/21 02/14/21 02/14/21 Range/Units 05:00 05:00 06:50 WBC 7.44 (4.0-11.0) K/uL RBC 4.51 (4.50-5.90) M/uL Hgb 10.7 L (13.0-17.0) g/dL Hct 32.5 L (38.0-50.0) % MCV 72.1 L (80.0-98.0) fL MCH 23.7 L (27.0-32.0) pg MCHC 32.9 (31.0-37.0) g/dL RDW Std Deviation 35.1 (28.0-62.0) fl RDW Coeff of Nadia 13 (11.0-15.0) % Plt Count 306 (150-400) K/uL MPV 10.60 (7.40-12.00) fL Neut % (Auto) 57.3 (48.0-80.0) % Lymph % (Auto) 34.4 (16.0-40.0) % Levy % (Auto) 6.5 (0.0-15.0) % Eos % (Auto) 1.7 (0.0-7.0) % Baso % (Auto) 0.1 (0.0-1.5) % Neut # (Auto) 4.3 (1.4-5.7) K/uL Lymph # (Auto) 2.6 H (0.6-2.4) K/uL Levy # (Auto) 0.5 (0.0-0.8) K/uL Eos # (Auto) 0.1 (0.0-0.7) K/uL Baso # (Auto) 0.0 (0.0-0.1) K/uL Nucleated RBC % 0.0 /100WBC Nucleated RBCs # 0 K/uL Sodium 140 (136-148) mmol/L Potassium 3.9 (3.5-5.1) mmol/L Chloride 104 (98-107) mmol/L Carbon Dioxide 27.3 (21.0-32.0) mmol/L BUN 29 H (7.0-18.0) mg/dL Creatinine 2.3 H (0.8-1.3) mg/dL Est Cr Clr Drug Dosing 18.05 mL/min Estimated GFR (MDRD) 32.6 ml/min Glucose 99 (74-106) mg/dL POC Glucose 102 H (70-99) mg/dL Calcium 8.8 (8.5-10.1) mg/dL Phosphorus 3.6 (2.6-4.7) mg/dL Magnesium 1.8 (1.8-2.4) mg/dL Med Orders - Current: Current Medications Amlodipine Besylate (Amlodipine 5 Mg Tab) 10 mg PO DAILY [facility] Last Admin: 02/14/21 09:06 Dose: 10 mg Documented by: Atorvastatin Calcium (Atorvastatin 40 Mg Tab) 40 mg PO BEDTIME [facility] Last Admin: 02/13/21 20:17 Dose: 40 mg Documented by: Clopidogrel Bisulfate (Clopidogrel 75 Mg Tab) 75 mg PO DAILY [facility] Last Admin: 02/14/21 09:06 Dose: 75 mg Documented by: Dextrose/Water (50% Dextrose In Water 50 Ml Syringe) 50 ml IV ASDIRECTED PRN PRN Reason: Hypoglycemia Folic Acid (Folic Acid 1 Mg Tab) 1 mg PO DAILY [facility] Last Admin: 02/14/21 09:06 Dose: 1 mg Documented by: Glucagon (Glucagon,Human Recombinant 1 Mg Vial) 1 mg IM ASDIRECTED PRN PRN Reason: Hypoglycemia Lisinopril/HCTZ (Lisinopril/Hydrochlorothiazide 10-12.5 Mg Tab) 1 tab PO DAILY [facility] Last Admin: 02/14/21 09:07 Dose: 1 tab Documented by: Heparin Sodium (Porcine) (Heparin Sodium 5,000 Units/Ml Vial) 5,000 units SUBCUT Q8H [facility] Last Admin: 02/14/21 03:37 Dose: 5,000 units Documented by: Insulin Aspart (Insulin Aspart 100 Units/Ml 3 Ml Pen) 0 unit SUBCUT TIDAC [facility]; Protocol Last Admin: 02/14/21 06:51 Dose: Not Given Documented by: Insulin Glargine (Insulin Glargine,Human Rec. Analog 100 Units/Ml 3 Ml Pen) 8 units SUBCUT BEDTIME [facility] Last Admin: 02/13/21 20:21 Dose: 8 units Documented by: Sodium Chloride (Sodium Chloride 0.9% 10 Ml Syringe) 10 ml FLUSH ASDIRECTED PRN PRN Reason: Keep Vein Open Last Admin: 02/10/21 01:01 Dose: 10 ml Documented by: Sodium Chloride (Sodium Chloride 0.9% 2.5 Ml Syringe) 2.5 ml FLUSH ASDIRECTED PRN PRN Reason: Keep Vein Open Last Admin: 02/10/21 01:02 Dose: 2.5 ml Documented by: Thiamine HCl (Thiamine 100 Mg Tab) 100 mg PO BEDTIME [facility] Last Admin: 02/13/21 20:17 Dose: 100 mg Documented by: Discontinued Medications Aspirin (Aspirin 81 Mg Tab.Chew) 324 mg PO ONETIME ONE Stop: 02/10/21 09:45 Last Admin: 02/10/21 09:49 Dose: 324 mg Documented by: Clonidine HCl (Clonidine 0.1 Mg Tab) 0.1 mg PO ONETIME ONE Stop: 02/10/21 05:56 Last Admin: 02/10/21 06:09 Dose: 0.1 mg Documented by: Dextrose/Water (50% Dextrose In Water 50 Ml Syringe) 50 ml IV ASDIRECTED PRN PRN Reason: Hypoglycemia Dextrose/Water (50% Dextrose In Water 50 Ml Syringe) 50 ml IV ASDIRECTED PRN PRN Reason: Hypoglycemia Glucagon (Glucagon,Human Recombinant 1 Mg Vial) 1 mg IM ASDIRECTED PRN PRN Reason: Hypoglycemia Glucagon (Glucagon,Human Recombinant 1 Mg Vial) 1 mg IM ASDIRECTED PRN PRN Reason: Hypoglycemia Hydralazine HCl (Hydralazine 20 Mg/Ml Sdv) 10 mg IVPUSH ONETIME ONE Stop: 02/10/21 01:28 Last Admin: 02/10/21 01:34 Dose: 10 mg Documented by: Sodium Chloride (Normal Saline) 1,000 mls @ 1,000 mls/hr IV .Bolus ONE Stop: 02/10/21 01:46 Last Admin: 02/10/21 01:01 Dose: 1,000 mls/hr Documented by: Sodium Chloride (Sodium Chloride 0.45%) 1,000 mls @ 125 mls/hr IV ASDIRECTED [facility] Stop: 02/10/21 15:59 Sodium Chloride (Normal Saline) 1,000 mls @ 50 mls/hr IV ASDIRECTED [facility] Last Admin: 02/12/21 17:45 Dose: 50 mls/hr Documented by: Insulin Glargine (Insulin Glargine,Human Rec. Analog 100 Units/Ml 3 Ml Pen) 5 units SUBCUT BEDTIME [facility] Last Admin: 02/10/21 20:29 Dose: 5 units Documented by: Insulin Human Regular (Insulin Regular, Human 100 Units/Ml 10 Ml Vial) 10 unit IVPUSH ONETIME ONE; Protocol Stop: 02/10/21 01:20 Last Admin: 02/10/21 01:27 Dose: 10 units Documented by: Lisinopril (Lisinopril 5 Mg Tab) 5 mg PO DAILY [facility] Last Admin: 02/10/21 09:43 Dose: 5 mg Documented by: Metoprolol Tartrate (Metoprolol Tartrate 25 Mg Tab) 25 mg PO Q12H [facility] - Exam General: Alert, Oriented, Cooperative, No Acute Distress Lungs: Clear to Auscultation, Normal Respiratory Effort Cardiovascular: Regular Rate, Regular Rhythm GI/Abdominal Exam: Normal Bowel Sounds, Soft, Non-Tender Extremities: Normal Inspection, Normal Range of Motion, Non-Tender, No Pedal Edema Neurological: No New Focal Deficit Psy/Mental Status: Alert, Normal Affect, Normal Mood - Patient Data Lab Results Last 24 hrs: Laboratory Results - last 24 hr 02/13/21 02/13/21 02/13/21 Range/Units 12:38 17:11 20:20 WBC (4.0-11.0) K/uL RBC (4.50-5.90) M/uL Hgb (13.0-17.0) g/dL Hct (38.0-50.0) % MCV (80.0-98.0) fL MCH (27.0-32.0) pg MCHC (31.0-37.0) g/dL RDW Std Deviation (28.0-62.0) fl RDW Coeff of Nadia (11.0-15.0) % Plt Count (150-400) K/uL MPV (7.40-12.00) fL Neut % (Auto) (48.0-80.0) % Lymph % (Auto) (16.0-40.0) % Levy % (Auto) (0.0-15.0) % Eos % (Auto) (0.0-7.0) % Baso % (Auto) (0.0-1.5) % Neut # (Auto) (1.4-5.7) K/uL Lymph # (Auto) (0.6-2.4) K/uL Levy # (Auto) (0.0-0.8) K/uL Eos # (Auto) (0.0-0.7) K/uL Baso # (Auto) (0.0-0.1) K/uL Nucleated RBC % /100WBC Nucleated RBCs # K/uL Sodium (136-148) mmol/L Potassium (3.5-5.1) mmol/L Chloride (98-107) mmol/L Carbon Dioxide (21.0-32.0) mmol/L BUN (7.0-18.0) mg/dL Creatinine (0.8-1.3) mg/dL Est Cr Clr Drug Dosing mL/min Estimated GFR (MDRD) ml/min Glucose (74-106) mg/dL POC Glucose 359 H 399 H 211 H (70-99) mg/dL Calcium (8.5-10.1) mg/dL Phosphorus (2.6-4.7) mg/dL Magnesium (1.8-2.4) mg/dL 02/14/21 02/14/21 02/14/21 Range/Units 05:00 05:00 06:50 WBC 7.44 (4.0-11.0) K/uL RBC 4.51 (4.50-5.90) M/uL Hgb 10.7 L (13.0-17.0) g/dL Hct 32.5 L (38.0-50.0) % MCV 72.1 L (80.0-98.0) fL MCH 23.7 L (27.0-32.0) pg MCHC 32.9 (31.0-37.0) g/dL RDW Std Deviation 35.1 (28.0-62.0) fl RDW Coeff of Nadia 13 (11.0-15.0) % Plt Count 306 (150-400) K/uL MPV 10.60 (7.40-12.00) fL Neut % (Auto) 57.3 (48.0-80.0) % Lymph % (Auto) 34.4 (16.0-40.0) % Levy % (Auto) 6.5 (0.0-15.0) % Eos % (Auto) 1.7 (0.0-7.0) % Baso % (Auto) 0.1 (0.0-1.5) % Neut # (Auto) 4.3 (1.4-5.7) K/uL Lymph # (Auto) 2.6 H (0.6-2.4) K/uL Levy # (Auto) 0.5 (0.0-0.8) K/uL Eos # (Auto) 0.1 (0.0-0.7) K/uL Baso # (Auto) 0.0 (0.0-0.1) K/uL Nucleated RBC % 0.0 /100WBC Nucleated RBCs # 0 K/uL Sodium 140 (136-148) mmol/L Potassium 3.9 (3.5-5.1) mmol/L Chloride 104 (98-107) mmol/L Carbon Dioxide 27.3 (21.0-32.0) mmol/L BUN 29 H (7.0-18.0) mg/dL Creatinine 2.3 H (0.8-1.3) mg/dL Est Cr Clr Drug Dosing 18.05 mL/min Estimated GFR (MDRD) 32.6 ml/min Glucose 99 (74-106) mg/dL POC Glucose 102 H (70-99) mg/dL Calcium 8.8 (8.5-10.1) mg/dL Phosphorus 3.6 (2.6-4.7) mg/dL Magnesium 1.8 (1.8-2.4) mg/dL Result Diagrams: 02/14/21 05:00 02/14/21 05:00 Sepsis Event Note - Evaluation Sepsis Screening Result: No Definite Risk - Focused Exam Vital Signs: Vital Signs Temp Pulse Resp BP BP Pulse Ox 02/14/21 09:06 138/81 02/14/21 09:04 98.1 F 14 138/81 96 02/14/21 03:38 98.2 F 82 16 177/66 H 96 02/14/21 00:00 98.2 F 16 168/58 H 98 - Problem List & Annotations (1) Dementia SNOMED Code(s): 93339534 Code(s): F03.90 - UNSPECIFIED DEMENTIA WITHOUT BEHAVIORAL DISTURBANCE Status: Chronic Current Visit: Yes (2) RANCHO (acute kidney injury) SNOMED Code(s): 76050567, 08995958 Code(s): N17.9 - ACUTE KIDNEY FAILURE, UNSPECIFIED Status: Acute Current Visit: Yes (3) Ambulatory dysfunction SNOMED Code(s): 804104684 Code(s): R26.2 - DIFFICULTY IN WALKING, NOT ELSEWHERE CLASSIFIED Status: Acute Current Visit: Yes (4) Dehydration with hypernatremia SNOMED Code(s): 824894133 Code(s): E86.0 - DEHYDRATION; E87.0 - HYPEROSMOLALITY AND HYPERNATREMIA Status: Acute Current Visit: Yes (5) Diabetes mellitus SNOMED Code(s): 14759389 Code(s): E11.9 - TYPE 2 DIABETES MELLITUS WITHOUT COMPLICATIONS Status: Acute Current Visit: Yes (6) Hyperglycemia SNOMED Code(s): 33469687 Code(s): R73.9 - HYPERGLYCEMIA, UNSPECIFIED Status: Acute Current Visit: Yes (7) Hypertensive emergency SNOMED Code(s): 831693409358940 Code(s): I16.1 - HYPERTENSIVE EMERGENCY Status: Acute Current Visit: Yes (8) Troponin I above reference range SNOMED Code(s): 270471327 Code(s): R77.8 - OTHER SPECIFIED ABNORMALITIES OF PLASMA PROTEINS Status: Acute Current Visit: Yes (9) Weakness SNOMED Code(s): 36928557 Code(s): R53.1 - WEAKNESS Status: Acute Current Visit: Yes (10) Chronic kidney disease SNOMED Code(s): 889463556 Code(s): N18.9 - CHRONIC KIDNEY DISEASE, UNSPECIFIED Status: Chronic Current Visit: No - Problem List Review Problem List Initiated/Reviewed/Updated: Yes - My Orders Last 24 Hours: My Active Orders 02/14/21 09:33 Consult to Home Health [CONS] Routine - Plan Plan:: 89 yo male admitted for dehydration, hyperglycemia, acute on chronic renal disease, and hypertensive urgency. Dehydration/hypernatremia: -Resolved we will stop IV fluids continue monitor intake orally. Hypertensive urgency: - Hypertensive urgency resolved. - BP has improved on oral amlodipine, resumed lisinopril, continue HCTZ DM: -on insulin diabetic diet and lantus increased to 8 at bedtime acute on chronic renal disease: -creatinine appears to have reached new baseline likely CKD due to uncontrolled HTN Elevated troponin: -likely due to hypertension, troponin has remained stable Ambulatory dysfunction PT consult , patient has very unsteady gait, Dispo: Dr. Lucas spoke with patient , she states she goes to work and during that time patient is by himself and is usually bed bound as he is unable to get out of bed safely unassisted, he does have a walker at home, patients will be at bedside today they also requested social work help to help "transfer medicare insurance from a different state to [place]" as he is unable to get his meds without that. Will likely need home health and wheelchair at discharge. Possible home in a.m. when social issues have been resolved.
[2021-02-14] MEDS: atorvaSTATin 40 MG Tab PO SCH (20:59)
[2021-02-14] MEDS: Thiamine 100 MG Tab PO SCH (20:59)
[2021-02-14] MEDS: Insulin Glargine,Human Rec. Analog 100 Units/ML 3 ML Pen SUBCUT SCH (21:00)
[2021-02-15] MEDS: Heparin Sodium 5,000 Units/ML Vial SUBCUT SCH ×2 (03:12→11:23)
[2021-02-15] MEDS: amLODIPine 5 MG Tab PO SCH (10:07)
[2021-02-15] MEDS: Clopidogrel 75 MG Tab PO SCH (10:11)
[2021-02-15] MEDS: Lisinopril/Hydrochlorothiazide 10-12.5 MG Tab PO SCH (10:11)
[2021-02-15] MEDS: Folic Acid 1 MG Tab PO SCH (10:12)
[2021-02-15] MEDS: Insulin Aspart 100 Units/ML 3 ML Pen SUBCUT SCH ×2 (10:12→13:33)
--- NOTE | 2021-02-15 11:29 | PCM.DCSUM1 ---
Discharge Summary - Hospital Course Brief History: 89 yo male with pmh of hypertension, CVA, DM who was transferred to [facility] in November for elevated troponins. Patient reports he has been neglecting himself for the past several months. According to his pharmacy records he hasn't fill any prescriptions since November which were only a month supply. Patient reports increased weakness and poor apatite. He also reports increased thirst and urination. Patient reports his works. I have tried calling family but have not had any response. Patient denies any fevers, chills, shortness of breath, chest pain, or headache. He denies any nausea, vomiting, or blood in stool. In the ED patient was noted to have Blood pressure in the 240s systolic. His sodium was 143, glucose 454, troponin, 0.086, Creatinine 3.0. After a liter of fluid and 10 units of insulin and hydralazin his blood pressure did improving and his sodium increased to 149 and glucose improved to 185. Diagnosis: Stroke: No - Discharge Data Discharge Date: 02/15/21 Discharge Disposition: Home, W Home Health Agency 06 Condition: Good - Referral to Home Health Date of Face to Face Encounter: 02/15/21 Reason for Homebound Status: Patient is homebound as he is not in need of assistive device as well as caregiver/spouse to bring him to doctor's appointments and take him out of the house. Primary Care Physician: Dr Malone Skilled Need: Evgeny is in need of fdc care to help monitor blood sugars as well as vital signs due to recent admissions for uncontrolled hypertension and hypertensive urgency. He is also in need of monitoring for med administration. He is in no physical therapy as well as occupational therapy to evaluate gait and home safety at home due to his unsteady gait and deconditioning. - Discharge Diagnosis/Problem(s) (1) Dementia SNOMED Code(s): 31702372 ICD Code: F03.90 - UNSPECIFIED DEMENTIA WITHOUT BEHAVIORAL DISTURBANCE Status: Chronic Current Visit: Yes (2) RANCHO (acute kidney injury) SNOMED Code(s): 95777152, 91596157 ICD Code: N17.9 - ACUTE KIDNEY FAILURE, UNSPECIFIED Status: Acute Current Visit: Yes (3) Ambulatory dysfunction SNOMED Code(s): 942846879 ICD Code: R26.2 - DIFFICULTY IN WALKING, NOT ELSEWHERE CLASSIFIED Status: Acute Current Visit: Yes (4) Dehydration with hypernatremia SNOMED Code(s): 888799980 ICD Code: E86.0 - DEHYDRATION; E87.0 - HYPEROSMOLALITY AND HYPERNATREMIA Status: Acute Current Visit: Yes (5) Diabetes mellitus SNOMED Code(s): 50701585 ICD Code: E11.9 - TYPE 2 DIABETES MELLITUS WITHOUT COMPLICATIONS Status: Acute Current Visit: Yes (6) Hyperglycemia SNOMED Code(s): 44710688 ICD Code: R73.9 - HYPERGLYCEMIA, UNSPECIFIED Status: Acute Current Visit: Yes (7) Hypertensive emergency SNOMED Code(s): 257133889949240 ICD Code: I16.1 - HYPERTENSIVE EMERGENCY Status: Acute Current Visit: Yes (8) Troponin I above reference range SNOMED Code(s): 298780671 ICD Code: R77.8 - OTHER SPECIFIED ABNORMALITIES OF PLASMA PROTEINS Status: Acute Current Visit: Yes (9) Weakness SNOMED Code(s): 12931297 ICD Code: R53.1 - WEAKNESS Status: Acute Current Visit: Yes (10) Chronic kidney disease SNOMED Code(s): 467079132 ICD Code: N18.9 - CHRONIC KIDNEY DISEASE, UNSPECIFIED Status: Chronic Current Visit: No - Patient Summary/Data Consults: Consultations 02/12/21 10:23 PT Evaluation and Treatment [CONS] Routine 02/13/21 12:35 Consult to Case Management/Frame Trimmer [CONS] Routine 02/14/21 09:33 Consult to Home Health [CONS] Routine Hospital Course: Admission diagnoses hypertensive urgency Elevated troponin RANCHO Hyperglycemia Discharge diagnoses Hypertensive urgency resolved Elevated troponin stable RANCHO resolved Hyperglycemia resolved Other PMH Poorly controlled hypertension CVA DM type II CKD Evgeny was admitted secondary to severely elevated blood pressures he was also noted to have a slightly elevated troponin which recently has been his baseline. In the ER he was given hydralazine with proving blood pressure but soon his blood pressure did continue to increase. He was transferred to the ICU for better management and hypertensive urgency. Troponin did elevate slightly but this is likely secondary to severe hypertension. Patient had no EKG changes and ACS less likely. He is also noted to have dehydration and hyperglycemia. He was treated with IV fluid resuscitation and trended sodiums. Patient was given insulin and diabetic diet along with restarting home medications. Patient blood pressure improved with restarting lisinopril and amlodipine. With discussion with family it appears that he is unable to afford medications as his Medicaid has not been transferred from [place] to [place]. Social work as well as financial consultants have been helping get this adjusted. This may take 1 to 2 months in the meantime we will provide 3 months prescription for hypertensive medications as well as Plavix. We will have him follow-up with diabetic education along with sending his Lantus that he is not using in the hospital. He will need to follow-up closely with primary care for better management. This was discussed with as well as [id number] who speaks much more fluent Spanish. They are understanding and will follow up with primary care and give medications. Today he is feeling much better denies any chest pain blood pressure is much better controlled on amlodipine and lisinopril. Hydrochlorothiazide was also added. He will continue with Plavix as well as statin at home. He is to return to the ER or clinic if concerns should arise follow-up with PCP as scheduled. He will be discharged home with home health to continue to follow at home. - Patient Instructions Diet: Low Sodium, Diabetic Diet Activity: No Strenuous Activities Driving: Do Not Drive Showering/Bathing: May Shower Notify Provider of: Fever, Increased Pain, Swelling and Redness, Drainage, Nausea and/or Vomiting - Discharge Plan *PRESCRIPTION DRUG MONITORING PROGRAM REVIEWED*: Not Applicable *COPY OF PRESCRIPTION DRUG MONITORING REPORT IN PATIENT [place]: Not Applicable Prescriptions/Med Rec: amLODIPine Besylate [Amlodipine Besylate] 10 mg PO DAILY 90 Days #90 tab atorvaSTATin [Lipitor] 40 mg PO BEDTIME #90 tab Lisinopril/Hydrochlorothiazide [Lisinopril-HCTZ 10-12.5 MG] 1 tab PO DAILY #90 tablet Clopidogrel [Plavix] 75 mg PO DAILY #90 tab Home Medications: Home Meds Insulin Glargine,Hum.Rec.Anlog [Gaurav Frye U-100] 12 unit SUBCUT DAILY [History] Pantoprazole [ProTONIX] 40 mg PO DAILY 02/10/21 [History] metFORMIN HCl [Metformin HCl ER] 500 mg PO WITHDINNER 02/10/21 [History] Clopidogrel [Plavix] 75 mg PO DAILY #90 tab 02/14/21 [Rx] Lisinopril/Hydrochlorothiazide [Lisinopril-HCTZ 10-12.5 MG] 1 tab PO DAILY #90 tablet 02/14/21 [Rx] amLODIPine Besylate [Amlodipine Besylate] 10 mg PO DAILY 90 Days #90 tab 02/14/21 [Rx] atorvaSTATin [Lipitor] 40 mg PO BEDTIME #90 tab 02/14/21 [Rx] Patient Handouts: Acute Kidney Injury, Adult, Weakness, [id number], Clopidogrel tablets, Hyperglycemia, [id number], Lisinopril; Hydrochlorothiazide, HCTZ Oral Tablets, Hypertension, Adult, [id number], Atorvastatin tablets, Amlodipine Oral Tablets, Managing Your Hypertension Referrals: Renetta Leong,Clinic [Ordering Only Provider] - (Ntahaly Chu, clinical systems educator will call you for an appointment.) Daiana Muniz MD [Physician] - 02/18/21 8:30 am - Discharge Summary/Plan Comment DC Time >30 min.: No - Patient Data Vitals - Most Recent: Last Vital Signs Temp 98.4 F 02/15/21 08:38 Pulse 82 02/14/21 03:38 Resp 16 02/15/21 08:38 BP 141/103 H 02/15/21 10:07 Pulse Ox 95 02/15/21 08:38 Weight - Most Recent: 58.604 kg I&O - Last 24 hours: Intake & Output 02/14/21 02/15/21 02/15/21 22:59 06:59 14:59 Intake Total 540 50 Output Total 500 800 Balance 40 -750 Lab Results - Last 24 hrs: Laboratory Results - last 24 hr 02/14/21 02/14/21 02/15/21 Range/Units 13:29 17:44 08:33 POC Glucose 160 H 184 H 65 L (70-99) mg/dL 02/15/21 Range/Units 09:40 POC Glucose 96 (70-99) mg/dL Med Orders - Current: Current Medications Amlodipine Besylate (Amlodipine 5 Mg Tab) 10 mg PO DAILY [facility] Last Admin: 02/15/21 10:07 Dose: 10 mg Documented by: Atorvastatin Calcium (Atorvastatin 40 Mg Tab) 40 mg PO BEDTIME [place] Last Admin: 02/14/21 20:59 Dose: 40 mg Documented by: Clopidogrel Bisulfate (Clopidogrel 75 Mg Tab) 75 mg PO DAILY [facility] Last Admin: 02/15/21 10:11 Dose: 75 mg Documented by: Dextrose/Water (50% Dextrose In Water 50 Ml Syringe) 50 ml IV ASDIRECTED PRN PRN Reason: Hypoglycemia Folic Acid (Folic Acid 1 Mg Tab) 1 mg PO DAILY [facility] Last Admin: 02/15/21 10:12 Dose: 1 mg Documented by: Glucagon (Glucagon,Human Recombinant 1 Mg Vial) 1 mg IM ASDIRECTED PRN PRN Reason: Hypoglycemia Lisinopril/HCTZ (Lisinopril/Hydrochlorothiazide 10-12.5 Mg Tab) 1 tab PO DAILY [facility] Last Admin: 02/15/21 10:11 Dose: 1 tab Documented by: Heparin Sodium (Porcine) (Heparin Sodium 5,000 Units/Ml Vial) 5,000 units SUBCUT Q8H [facility] Last Admin: 02/15/21 11:23 Dose: 5,000 units Documented by: Insulin Aspart (Insulin Aspart 100 Units/Ml 3 Ml Pen) 0 unit SUBCUT TIDAC [facility]; Protocol Last Admin: 02/15/21 10:12 Dose: Not Given Documented by: Insulin Glargine (Insulin Glargine,Human Rec. Analog 100 Units/Ml 3 Ml Pen) 8 units SUBCUT BEDTIME [facility] Last Admin: 02/14/21 21:00 Dose: 8 units Documented by: Sodium Chloride (Sodium Chloride 0.9% 10 Ml Syringe) 10 ml FLUSH ASDIRECTED PRN PRN Reason: Keep Vein Open Last Admin: 02/10/21 01:01 Dose: 10 ml Documented by: Sodium Chloride (Sodium Chloride 0.9% 2.5 Ml Syringe) 2.5 ml FLUSH ASDIRECTED PRN PRN Reason: Keep Vein Open Last Admin: 02/10/21 01:02 Dose: 2.5 ml Documented by: Thiamine HCl (Thiamine 100 Mg Tab) 100 mg PO BEDTIME [facility] Last Admin: 02/14/21 20:59 Dose: 100 mg Documented by: Discontinued Medications Aspirin (Aspirin 81 Mg Tab.Chew) 324 mg PO ONETIME ONE Stop: 02/10/21 09:45 Last Admin: 02/10/21 09:49 Dose: 324 mg Documented by: Clonidine HCl (Clonidine 0.1 Mg Tab) 0.1 mg PO ONETIME ONE Stop: 02/10/21 05:56 Last Admin: 02/10/21 06:09 Dose: 0.1 mg Documented by: Dextrose/Water (50% Dextrose In Water 50 Ml Syringe) 50 ml IV ASDIRECTED PRN PRN Reason: Hypoglycemia Dextrose/Water (50% Dextrose In Water 50 Ml Syringe) 50 ml IV ASDIRECTED PRN PRN Reason: Hypoglycemia Glucagon (Glucagon,Human Recombinant 1 Mg Vial) 1 mg IM ASDIRECTED PRN PRN Reason: Hypoglycemia Glucagon (Glucagon,Human Recombinant 1 Mg Vial) 1 mg IM ASDIRECTED PRN PRN Reason: Hypoglycemia Hydralazine HCl (Hydralazine 20 Mg/Ml Sdv) 10 mg IVPUSH ONETIME ONE Stop: 02/10/21 01:28 Last Admin: 02/10/21 01:34 Dose: 10 mg Documented by: Sodium Chloride (Normal Saline) 1,000 mls @ 1,000 mls/hr IV .Bolus ONE Stop: 02/10/21 01:46 Last Admin: 02/10/21 01:01 Dose: 1,000 mls/hr Documented by: Sodium Chloride (Sodium Chloride 0.45%) 1,000 mls @ 125 mls/hr IV ASDIRECTED [place] Stop: 02/10/21 15:59 Sodium Chloride (Normal Saline) 1,000 mls @ 50 mls/hr IV ASDIRECTED [facility] Last Admin: 02/12/21 17:45 Dose: 50 mls/hr Documented by: Insulin Glargine (Insulin Glargine,Human Rec. Analog 100 Units/Ml 3 Ml Pen) 5 units SUBCUT BEDTIME [facility] Last Admin: 02/10/21 20:29 Dose: 5 units Documented by: Insulin Human Regular (Insulin Regular, Human 100 Units/Ml 10 Ml Vial) 10 unit IVPUSH ONETIME ONE; Protocol Stop: 02/10/21 01:20 Last Admin: 02/10/21 01:27 Dose: 10 units Documented by: Lisinopril (Lisinopril 5 Mg Tab) 5 mg PO DAILY [facility] Last Admin: 02/10/21 09:43 Dose: 5 mg Documented by: Metoprolol Tartrate (Metoprolol Tartrate 25 Mg Tab) 25 mg PO Q12H [facility] - Exam General: Reports: Alert, Oriented, Cooperative, No Acute Distress Lungs: Reports: Clear to Auscultation, Normal Respiratory Effort Cardiovascular: Reports: Regular Rate, Regular Rhythm GI/Abdominal Exam: Normal Bowel Sounds, Soft, Non-Tender Extremities: Normal Inspection, Normal Range of Motion Neurological: Reports: No New Focal Deficit Psy/Mental Status: Reports: Alert, Normal Affect, Normal Mood
== END 2021-02-15 14:50 | disposition home health service (06) | DRG 305 ==
LOC: MW.ED 00:23 → UNDOADMOB 04:17 → MW.MS 04:17 → OBSVTOIN 10:30 → INTOOBSV 10:30 → MW.ICU 10:31 → MW.MS 10:31 → OBSVTOIN 11:29 → MW.ICU 11:30
PROVIDERS: ADMIT Internal Medicine; ATTEND Internal Medicine
DX: I16.0 Hypertensive urgency (principal); N17.9 Acute kidney failure, unspecified; R53.1 Weakness; E87.0 Hyperosmolality and hypernatremia; D64.9 Anemia, unspecified; E11.22 Type 2 diabetes mellitus with diabetic chronic kidney disease; I12.9 Hypertensive chronic kidney disease with stage 1 through stage 4 chronic kidney disease, or unspecified chronic kidney disease; N18.9 Chronic kidney disease, unspecified; Z79.4 Long term (current) use of insulin; E78.5 Hyperlipidemia, unspecified; E11.65 Type 2 diabetes mellitus with hyperglycemia; E86.0 Dehydration; Z86.73 Personal history of transient ischemic attack (TIA), and cerebral infarction without residual deficits; Z79.02 Long term (current) use of antithrombotics/antiplatelets; R26.2 Difficulty in walking, not elsewhere classified; Z79.899 Other long term (current) drug therapy; R77.8 Other specified abnormalities of plasma proteins; F03.90 Unspecified dementia, unspecified severity, without behavioral disturbance, psychotic disturbance, mood disturbance, and anxiety; Z20.822 Contact with and (suspected) exposure to COVID-19
CPT/HCPCS: 36415; 71045; 80048; 80053; 80307; 81001; 82947 ×2; 83036; 83735; 84484 ×3; 85025; 85610; 93005; 96374; 99285; A9270 ×5; J0360; J1815; J7030; U0002; 84100; 93010; 97110-GP; 97162-GP; 99284; J1644